=== PATIENT | female | born 1950 | race Caucasian/White ===

== ENCOUNTER 2017-01-26 21:44 | Inpatient (IN) | payer MEDICARE, MEDICAID ==
[2017-01-26] MEDS ORDERED: DUONEB 0.5 MG/3 MG ONE (22:00)
[2017-01-26] MEDS ORDERED: DUONEB 0.5 MG/3 MG NEB ONE ×2 (22:16→22:37)
[2017-01-26] MEDS ORDERED: SOLU-Medrol 125 MG VIAL IVP ONE (22:30)
--- NOTE | 2017-01-26 22:30 | DR.GENAD ---
HPI - PCP Primary Care Physician: Dr Eubanks - Complaint/Symptoms Chief Complaint Doctors Comments: Patient with a history of COPD on 2L oxygen and nebs as needed. Chief Complaint:: PT C/O COUGH CONGESTION SOB STARTED LAST WEEK BUT CAME BACK LAST NIGHT - Source History Provided: Patient - Mode of Arrival Mode of Arrival: Wheelchair - Timing Onset of Chief Complaint: 01/20/17 PMH - PMH Past Medical History: Yes Past Medical History: Arthritis, Asthma, CHF, COPD, Diabetes, GERD, Gout, Hypertension Past Surgical History: Yes Surgical History: Angioplasty/Stents, , Cholecystectomy, Hysterectomy, Ortho Surgery Past Surgical History Comment: LOOP RECORDER IN LT BREAST WATCHMEN IN HEART - Family History History of Family Medical Conditions: Yes Family Medical History: Diabetes Mellitus, Cancer, [place], Hypertension - Social History Do you use any recreational Drugs:: No Lives With: Family Lives Where: Home - infectious screening In the last 2 months have you had wt loss of >10#?: NO Have you had fever, night sweats or hemotysis?: No Have you traveled outside the country in the last 6 months?: No Isolation: Standard ROS - Review of Systems Eyes: No Symptoms Reported ENTM: No Symptoms Reported Respiratoy: No Symptoms Reported Cardiovascular: No Symptoms Reported Gastrointestinal/Abdominal: No Symptoms Reported Genitourinary: No Symptoms Reported Neurological: No Symptoms Reported Musculoskeletal: No Symptoms Reported Integumentary: No Symptoms Reported Hematologic/Lymphatic: No Symptoms Reported Endocrine: No Symptoms Reported Psychiatric: No Symptoms Reported All Other Systems: Reviewed and Negative PE - Vital Signs Vitals: Temperature 99.6 F Pulse Rate [Right Brachial] 85 Pulse Rate 90 Respiratory Rate 21 Blood Pressure [Right Arm] 135/63 Blood Pressure [Left Arm] 169/64 Blood Pressure 116/60 O2 Sat by Pulse Oximetry 93 - General Limitations: No Limitations General Appearance: Alert, In No Apparent Distress - Head Head Exam: Normal Inspection, Atraumatic - Eyes Eye exam: Normal Appearance, PERRL, EOMI - ENT ENT Exam: Normal Exam External Ear Exam: Normal External Inspection TM/Canal Exam: Bilateral Normal Nose Exam: Normal Nose Exam Mouth Exam: Normal Inspection Throat Exam: Normal Inspection - Neck Neck Exam: Normal Inspection - Chest Chest Inspection: Normal Inspection - Respiratory Respiratory Exam: Normal Lung Sounds Bilat Respiratory Exam: Bilateral Clear to Auscultation - Cardiovascular Cardiovascular Exam: Regular Rate, Normal Rhythm - Abdominal Exam Abdominal Exam: Normal Inspection Abdominal Tenderness: negative: RUQ, RLQ, LUQ, LLQ, Epigastrium, Suprapubic, Diffuse, Mild, Moderate, Severe, Other - Extremities Extremities Exam: Normal Inspection - Back Back Exam: Normal Inspection, Full ROM - Neurologic Neurological Exam: Alert, Oriented X3, CN II-XII Intact - Psychiatric Psychiatric Exam: Normal Affect - Skin Skin Exam: Warm, Dry, Intact Course - Reevaluation 1st: Improved - Education/Counseling Educated On: Treatment, Prognosis, Needs for Follow Up ROR - Labs Reviewed Result Diagrams: 01/27/17 00:27 01/27/17 00: Laboratory: 01/26/17 22:18 Sputum - Expectorated Sputum - Final WBC 22.2 X10^3/uL (3.6-10.0) H 01/27/17 00: RBC 3.93 X10^6/uL (3.5-5.4) 01/27/17 00: Hgb 10.6 g/dL (12.0-16.0) L 01/27/17 00: Hct 31.9 % (36.0-47.0) L 01/27/17 00: MCV 81.1 fL (80.0-100.0) 01/27/17 00: MCH 27.1 pg (27.0-34.0) 01/27/17 00: MCHC 33.4 g/dL (33.0-35.0) 01/27/17 00: RDW 16.2 % (11.6-16.5) 01/27/17 00: Plt Count 168 X10^3/uL (150.0-450.0) 01/27/17 00:27 Plt Count Comment Adequate (ADEQUATE) 01/27/17 00: MPV 9.2 fL (7.4-11.0) 01/27/17 00: Neut % 85.1 % (42.0-75.0) H 01/27/17 00: Lymph % 8.0 % (21.0-51.0) L 01/27/17 00: [place] % 6.5 % (0.0-13.0) 01/27/17 00: Eos % 0.0 % (0.9-2.9) L 01/27/17 00:27 Baso % 0.4 % (0.2-1.0) 01/27/17 00: Neut # 18.9 x10^3/uL (2.2-4.8) H 01/27/17 00: Lymph # 1.8 X10^3/uL (1.3-2.9) 01/27/17 00: [place] # 1.4 x10^3/uL (0.3-0.8) H 01/27/17 00: Eos # 0.0 x10^3/uL (0.0-0.2) 01/27/17 00: Baso # 0.1 X10^3/uL (0.0-0.1) 01/27/17 00: Absolute Nucleated RBC 0.0 /100WBC 01/27/17 00: Total Counted 100 01/27/17 00: Neutrophils % (Manual) 83 % (39-76) H 01/27/17 00: Band Neutrophils % 3 % (0-10) 01/27/17 00: Lymphocytes % (Manual) 9 % (13-43) L 01/27/17 00: Monocytes % (Manual) 5 % (4-9) 01/27/17 00: Plt Morphology Comment Normal (NORMAL) 01/27/17 00: RBC Morphology Normal (NORMAL) 01/27/17 00: Sodium 135 mmol/L (136-145) L 01/27/17 00: Corrected Sodium 138 mmol/L (136-145) 01/27/17 00: Potassium 3.5 mmol/L (3.5-5.1) 01/27/17 00: Chloride 98 mmol/L (98-107) 01/27/17 00: Carbon Dioxide 29.9 mmol/L (21-32) 01/27/17 00: BUN 21 mg/dL (7-18) H 01/27/17 00: Creatinine 1.52 mg/dL (0.55-1.02) H 01/27/17 00: Est GFR (MDRD) Af Amer 44 (>60) L 01/27/17 00: Est GFR (MDRD) Non-Af 36 (>60) L 01/27/17 00: Glucose 218 mg/dL (65-99) H 01/27/17 00:27 Calcium 8.8 mg/dL (8.5-10.1) 01/27/17 00: Corrected Calcium 9.7 mg/dL (8.5-10.1) 01/27/17: Total Bilirubin 0.80 mg/dL (0.2-1.0) 01/27/17: AST 18 Units/L (15-37) 01/27/17:27 ALT 19 Units/L (12-78) 01/27/17: Alkaline Phosphatase 106 Units/L (46-116) 01/27/17: Total Protein 6.8 g/dL (6.4-8.2) 01/27/17 00: Albumin 2.9 g/dL (3.4-5.0) L 01/27/17: Globulin 3.9 g/dL (2.5-4.5) 01/27/17 00: Albumin/Globulin Ratio 0.7 Ratio (1.1-2.1) L 01/27/17 00:27 - XRAY XRAY Interpreted by: Radiologist (Chest: Dense consolidation within the left uper lobe consistet with pneumonia. Stable increased prominence of the right pulmonary artery/hilum, this likely represents arterial dilatation; however, adenopathy or mass is not entirely excluded, attention on follow-up PA lat chest radiograph in 4-6 weeks is recommended to ensure resolution of GILLES airspace disease and further evaluation of the right hilum.) - Diagnosis Discharge Problem: Pneumonia Qualifiers: Pneumonia type: due to unspecified organism Laterality: left Lung location: upper lobe of lung Qualified Code(s): J18.1 - Lobar pneumonia, unspecified organism - Discharge Plan Condition: Stable - Follow ups/Referrals Follow ups/Referrals: NFD,None [Primary Care Provider] - 3 days - Instructions
[2017-01-26] MEDS ORDERED: DECADRON JET NEB (RESP USE) NEB ONE (22:37)
[2017-01-26] MEDS ORDERED: SOLU-Medrol 125 MG VIAL ONE (22:46)
[2017-01-26] MEDS: NS 1000 ML 1,000 ML IV SCH (23:00)
--- NOTE | 2017-01-27 00:04 | RAD ---
AP Chest Indication: Cough and congestion Comparison: 10/07/2015 Findings: The trachea is midline. The cardiac silhouette is unremarkable. Dense airspace consolidation within the left upper lobe most consistent with pneumonia. There is increased prominence of the right pulm onary artery/hilum. No pleural effusion or pneumothorax. No acute osseous abnormality. IMPRESSION: 1. Dense consolidation within the left upper lobe consistent with pneumonia. 2. Stable increased prominence of the right pulmonary artery/hilum, this likely represents arterial dilatation; however adenopathy or mass is not entirely excluded, attention on follow-up PA lateral ch est radiograph in 4-6 weeks is recommended to ensure resolution of left upper lobe airspace disease a nd further evaluation of the right hilum. Reported By:
[2017-01-27] MEDS ORDERED: ZITHROMAX INJ 500 MG VIAL 500 MG in NS 250 ML IV 250 ML IV SCH (00:17)
[2017-01-27 00:42] LABS: BASOPHILS # (AUTO) 0.1 X10^3/uL (0.0-0.1); BASOPHILS % (AUTO) 0.4 % (0.2-1.0); LYMPHOCYTES # (AUTO) 1.8 X10^3/uL (1.3-2.9); MONOCYTES # (AUTO) 1.4 x10^3/uL (0.3-0.8)
[2017-01-27 00:45] LABS: HEMATOCRIT 31.9 % (36.0-47.0); HEMOGLOBIN 10.6 g/dL (12.0-16.0); MEAN CORPUSCULAR HEMOGLOBIN 27.1 pg (27.0-34.0); MEAN CORPUSCULAR HGB CONC 33.4 g/dL (33.0-35.0); MEAN CORPUSCULAR VOLUME 81.1 fL (80.0-100.0); MEAN PLATELET VOLUME 9.2 fL (7.4-11.0); MONOCYTES % (AUTO) 6.5 % (0.0-13.0); NEUTROPHILS # (AUTO) 18.9 x10^3/uL (2.2-4.8); NEUTROPHILS % (AUTO) 85.1 % (42.0-75.0); PLATELET COUNT 168 X10^3/uL (150.0-450.0); RED BLOOD COUNT 3.93 X10^6/uL (3.5-5.4); RED CELL DISTRIBUTION WIDTH 16.2 % (11.6-16.5); WHITE BLOOD COUNT 22.2 X10^3/uL (3.6-10.0)
[2017-01-27 00:50] LABS: ALBUMIN 2.9 g/dL (3.4-5.0); CALCIUM 8.8 mg/dL (8.5-10.1); CARBON DIOXIDE 29.9 mmol/L (21-32); COR CA(FOR HYPOALB) 9.7 mg/dL (8.5-10.1); CREATININE 1.52 mg/dL (0.55-1.02); TOTAL PROTEIN 6.8 g/dL (6.4-8.2)
[2017-01-27 00:54] LABS: BAND NEUTROPHILS % 3 % (0-10); PLATELET MORPHOLOGY COMMENT NORMAL (NORMAL)
[2017-01-27] MEDS ORDERED: ZITHROMAX INJ 500 MG VIAL IV ONE (01:29)
[2017-01-27] MEDS ORDERED: NS 250 ML IV 250 ML IV ONE (01:30)
[2017-01-27] MEDS ORDERED: VIBRAMYCIN 100 MG in NS 100 ML IV + SPIKE MINIBAG* 100 ML IV SCH (03:00)
[2017-01-27] MEDS: NS 1/2 1000 ML IV 1,000 ML IV SCH ×3 (03:49→16:36)
[2017-01-27] MEDS ORDERED: NS 100 ML IV + SPIKE MINIBAG* 0 ML IV ONE (03:57)
[2017-01-27] MEDS: DUONEB 0.5 MG/3 MG NEB SCH ×5 (04:06→21:24)
[2017-01-27 05:09] LABS: BASOPHILS % (AUTO) 0.2 % (0.2-1.0); HEMATOCRIT 31.2 % (36.0-47.0); HEMOGLOBIN 10.3 g/dL (12.0-16.0); LYMPHOCYTES % (AUTO) 4.7 % (21.0-51.0); MEAN CORPUSCULAR HEMOGLOBIN 26.6 pg (27.0-34.0); MEAN CORPUSCULAR HGB CONC 32.8 g/dL (33.0-35.0); MEAN CORPUSCULAR VOLUME 81.1 fL (80.0-100.0); MEAN PLATELET VOLUME 9.6 fL (7.4-11.0); MONOCYTES # (AUTO) 0.6 x10^3/uL (0.3-0.8); MONOCYTES % (AUTO) 2.8 % (0.0-13.0); NEUTROPHILS % (AUTO) 92.3 % (42.0-75.0); PLATELET COUNT 167 X10^3/uL (150.0-450.0); RED BLOOD COUNT 3.85 X10^6/uL (3.5-5.4); RED CELL DISTRIBUTION WIDTH 16.2 % (11.6-16.5); WHITE BLOOD COUNT 20.6 X10^3/uL (3.6-10.0)
[2017-01-27 05:18] VITALS: BMI 39.9
[2017-01-27 05:21] LABS: ALBUMIN 2.7 g/dL (3.4-5.0); CALCIUM 8.9 mg/dL (8.5-10.1); CARBON DIOXIDE 25.4 mmol/L (21-32); COR CA(FOR HYPOALB) 9.9 mg/dL (8.5-10.1); CREATININE 1.65 mg/dL (0.55-1.02); TOTAL PROTEIN 6.8 g/dL (6.4-8.2)
[2017-01-27 05:34] LABS: BAND NEUTROPHILS % 2 % (0-10); PLATELET MORPHOLOGY COMMENT NORMAL (NORMAL)
[2017-01-27] MEDS: HumuLIN R SC PRN ×4 (05:42→17:31)
[2017-01-27] MEDS: NS 1000 ML 1,000 ML IV SCH (06:40)
[2017-01-27] MEDS ORDERED: LEXAPRO ONE (08:08)
[2017-01-27] MEDS ORDERED: NS 1/2 1000 ML IV 1,000 ML IV ONE (08:08)
[2017-01-27] MEDS: ASPIRIN 81 MG CHEWTAB PO SCH (08:15)
[2017-01-27] MEDS: SYNTHROID 100 mcg TAB PO SCH (08:15)
[2017-01-27] MEDS: LOTENSIN TAB 10 MG PO SCH (08:15)
[2017-01-27] MEDS: MAG-OX TAB PO SCH ×2 (08:15→20:42)
[2017-01-27] MEDS: LEXAPRO PO SCH (08:15)
[2017-01-27] MEDS ORDERED: DOFETILIDE 500 MG PO SCH (09:00)
[2017-01-27] MEDS ORDERED: ROCEPHIN VIAL 1 GM 1 GM in NS 50 ML IV + SPIKE MINIBAG* 50 ML IV SCH (09:00)
[2017-01-27] MEDS ORDERED: PATIENT'S HOME MEDICATION (Escitalopram Oxalate [Escitalopram Oxalate] 20 MG) PO SCH (09:00)
[2017-01-27] MEDS: PATIENT'S HOME MEDICATION PO SCH ×2 (11:52→21:46)
[2017-01-27] MEDS ORDERED: ZOSYN VIAL 4.5 GM IV SCH (15:00)
--- NOTE | 2017-01-27 15:59 | RAD ---
HISTORY: Pneumonia Study: Two-view chest Comparison: 01/26/2017 Findings: The trachea is midline. The cardiac silhouette is unremarkable. Focal airspace opacification of the left upper lobe is observed consistent with lobar pneumonia. The bony thorax is unremarkable. IMPRESSION: 1. Left upper lobe pneumonia. Reported By:
[2017-01-27] MEDS ORDERED: NS 50 ML IV 50 ML IV ONE (20:11)
[2017-01-27] MEDS: SNACK - Diabetic Appropriate PO SCH (20:43)
[2017-01-27] MEDS: ZOSYN VIAL 3.375 GM IV SCH (21:04)
[2017-01-27] MEDS: LANTUS SC SCH (21:04)
[2017-01-28] MEDS: DUONEB 0.5 MG/3 MG NEB SCH ×6 (01:11→20:31)
[2017-01-28] MEDS ORDERED: NS 1000 ML 1,000 ML ONE ×2 (01:24→22:06)
[2017-01-28 04:36] LABS: BASOPHILS % (AUTO) 0.2 % (0.2-1.0); HEMATOCRIT 29.2 % (36.0-47.0); HEMOGLOBIN 9.6 g/dL (12.0-16.0); LYMPHOCYTES # (AUTO) 2.1 X10^3/uL (1.3-2.9); MEAN CORPUSCULAR HEMOGLOBIN 26.7 pg (27.0-34.0); MEAN CORPUSCULAR HGB CONC 32.9 g/dL (33.0-35.0); MEAN CORPUSCULAR VOLUME 81.1 fL (80.0-100.0); MEAN PLATELET VOLUME 9.2 fL (7.4-11.0); MONOCYTES # (AUTO) 1.4 x10^3/uL (0.3-0.8); MONOCYTES % (AUTO) 6.8 % (0.0-13.0); PLATELET COUNT 169 X10^3/uL (150.0-450.0); RED CELL DISTRIBUTION WIDTH 16.4 % (11.6-16.5); WHITE BLOOD COUNT 20.5 X10^3/uL (3.6-10.0)
[2017-01-28 04:50] LABS: ALBUMIN 2.7 g/dL (3.4-5.0); CALCIUM 9.4 mg/dL (8.5-10.1); CARBON DIOXIDE 28.7 mmol/L (21-32); COR CA(FOR HYPOALB) 10.4 mg/dL (8.5-10.1); CREATININE 1.47 mg/dL (0.55-1.02); TOTAL PROTEIN 6.7 g/dL (6.4-8.2)
[2017-01-28] MEDS ORDERED: NS 50 ML IV 50 ML IV ONE ×2 (04:59→21:44)
[2017-01-28] MEDS: ZOSYN VIAL 3.375 GM IV SCH ×2 (05:24→14:00)
[2017-01-28] MEDS: HumuLIN R SC PRN ×3 (05:48→16:45)
--- NOTE | 2017-01-28 06:03 | RAD ---
HISTORY: Follow-up pneumonia Study: Chest AP portable Comparison: 01/27/2017 Findings: The heart is enlarged. No congestive heart failure is noted. The lungs are well inflated. The right l stuart and left lower lobe appear clear. Infiltrate is again noted in the left upper lobe most consisten t with pneumonia. Follow-up until complete resolution is recommended in order to exclude underlying n eoplasm. The bony thorax is unremarkable. IMPRESSION: No change left upper lobe infiltrate. Follow-up until complete resolution is recommended in order to exclude underlying neoplasm Cardiomegaly without congestive heart failure Reported By:
[2017-01-28] MEDS ORDERED: LEXAPRO ONE (08:28)
[2017-01-28] MEDS ORDERED: NS 1/2 1000 ML IV 1,000 ML IV ONE (08:28)
[2017-01-28] MEDS: NS 1/2 1000 ML IV 1,000 ML IV SCH (09:01)
[2017-01-28] MEDS: LEXAPRO PO SCH (09:01)
[2017-01-28] MEDS: PATIENT'S HOME MEDICATION PO SCH (09:02)
[2017-01-28] MEDS: LOTENSIN TAB 10 MG PO SCH (09:02)
[2017-01-28] MEDS: MAG-OX TAB PO SCH (09:02)
[2017-01-28] MEDS: ASPIRIN 81 MG CHEWTAB PO SCH (09:02)
[2017-01-28] MEDS: SYNTHROID 100 mcg TAB PO SCH (09:02)
--- NOTE | 2017-01-28 12:22 | DR.H&P ---
H&P - History & Physical for Day of: H&P Date: 01/27/17 - Chief Complaint Chief Complaint: COUGH, SHORT OF BREATH - Allergies Allergies/Adverse Reactions: Allergies Allergy/AdvReac Type Severity Reaction Status Date / Time levofloxacin [From Levaquin] Allergy Verified 01/26/17 21:49 - History of Present Illness History of Present Illness: IS A 66 YEAR OLD WHITE FEMALE WHO PRESENTED TO THE EMERGENCY ROOM WITH COMPLAINTS OF COUGH, CONGESTION, AND SHORTNESS OF BREATH. PATIENT REPORTS SYMPTOMS FOR ONE WEEK. SHE HAS A HISTORY OF COPD AND UTILIZES OXYGEN AT HOME WELL NEB TX. LUNG SOUNDS ARE DIMINISHED THROUGHOUT. ON ARRIVAL TO ED, VITAL SIGNS WERE 99.6-95-24-92%-116/ 60. LABS AND CHEST XRAY WERE OBTAINED. ABNORMAL LAB VALUES INCLUDE THE FOLLOWING : WBC 22.2, HGB 10.6, HCT 31.9, SODIUM 135, BUN 21, CREATININE 1.52, GLUCOSE 218 , ALBUMIN 2.9. BLOOD CULTURES AND SPUTUM CULTURES COLLECTED AND SENT TO LAB. RESULTS ARE PENDING. CHEST XRAY REPORTED DENSE CONSOLIDATION WITHIN THE LEFT UPPER LOBE CONSISTEND WITH PNEUMONIA. STABLE INCREASED PROMINENCE OF THE RIGHT PULMONARY ARTERY/HILUM, LIKELY REPRESENTING ARTERIAL DILATION. ADENOPATHY OR MASS IS NOT ENTIRELY EXCLUDED. EKG REPORTED SINUS RHYTHM WITH HR 89. PATIENT WAS ADMITTED FOR FURTHER TREATMENT AND EVALUATION OF GILLES PNEUMONIA. SHE WAS STARTED ON IV ANTIBIOTICS, DUONEBS, AND TUSSIONEX PRN FOR COUGH. WE PLAN TO FOLLOW UP WITH AM LABS AND CONTINUE TO MONITOR PATIENT. - Past Medical History Past Medical History: Arthritis, Asthma, CHF, COPD, Diabetes, GERD, Gout, Hypertension - Past Surgical History Surgical History: Angioplasty/Stents, , Cholecystectomy, Hysterectomy, Ortho Surgery, Other - Family History Family Medical History: Diabetes Mellitus, Cancer, [place], Hypertension - Social History Does any household member use tobacco: No Alcohol Use: None Drug Use: None - Medications Home Medications: Aspirin [ASPIRIN 81 MG CHEWTAB *] 81 mg PO DAILY 01/26/17 [History Confirmed ] Benazepril HCl [Benazepril HCl] 10 mg PO DAILY 01/26/17 [History Confirmed 01/27] Dofetilide [Dofetilide] 250 mcg PO BID 01/26/17 [History Confirmed 01/27/17] Escitalopram Oxalate [Escitalopram Oxalate] 20 mg PO DAILY 01/26/17 [History Confirmed 01/27/17] Febuxostat [Uloric] 40 mg PO DAILY 01/26/17 [History Confirmed 01/27/17] Levothyroxine Sodium 100 mcg PO DAILY 01/26/17 [History Confirmed 01/27/17] Lipase/Protease/Amylase [Creon Dr 24,000 Units Capsule] 20 mg PO BID 01/26/17 [ History Confirmed 01/27/17] Magnesium Oxide [MAG-OX TAB 400 MG *] 400 mg PO BID 01/26/17 [History Confirmed 01/27/17] - Review of Systems Constitutional: Weakness. denies: Fever Eyes: No Symptoms Reported ENT: Ear Discharge, Nose Congestion Respiratory: Cough, Shortness of Breath, SOB with Excertion Cardiovascular: No Symptoms Reported. denies: Chest Pain Gastrointestinal: No Symptoms Reported. denies: Nausea, Vomiting, Abdominal Pain Genitourinary: No Symptoms Reported Musculoskeletal: No Symptoms Reported Skin: No Symptoms Reported Neurological: Weakness - Physical Exam Vital Signs: Temperature 97.7 F Pulse Rate [Right Brachial] 87 Pulse Rate 71 Respiratory Rate 20 Blood Pressure [Right Arm] 132/63 Blood Pressure [Left Arm] 122/60 Blood Pressure 116/60 O2 Sat by Pulse Oximetry 95 Oriented: Normal Eyes: Normal. negative: Blurred Vision, Diplopia Ear: Normal Nose: Normal Throat: Normal. negative: Tonsillar Hypertrophy Respiratory: Diminished Throughout Cardiovascular: Normal : Normal. negative: Dysuria, Hematuria, Frequency Auscultation: Bowel Sounds: Normal Palpation: Normal Tenderness: Normal. negative: Rebound, Guarding, Rigidity Skin: Normal Musculoskeletal: Normal Psychiatric: Normal Mood Description: Calm Affect: Normal Speech Pattern: Clear - Assessment/Plan (1) Pneumonia Qualifiers: Pneumonia type: due to unspecified organism Laterality: left Lung location: upper lobe of lung Qualified Code(s): J18.1 - Lobar pneumonia, unspecified organism Status: Acute Plan: IV ANTIBIOTICS, SUPPLEMENTAL OXYGEN, DUONEBS, ADMINISTER COUGH MEDICATIONS , SPUTUM CULTURE, MONITOR LABS AND CHEST XRAY
[2017-01-28] MEDS ORDERED: NS 100 ML IV + SPIKE MINIBAG* 100 ML IV ONE (13:35)
[2017-01-28] MEDS: TUSSIONEX PENNKINETIC SUSP PO PRN (19:19)
[2017-01-28] MEDS ORDERED: STERILE WATER IRRIGATION IR ONE (20:37)
[2017-01-29] MEDS: SNACK - Diabetic Appropriate PO SCH ×2 (00:09→22:38)
[2017-01-29] MEDS: LANTUS SC SCH ×2 (00:10→21:27)
[2017-01-29] MEDS: MAG-OX TAB PO SCH ×3 (00:11→21:14)
[2017-01-29] MEDS: PATIENT'S HOME MEDICATION PO SCH ×3 (00:11→21:17)
[2017-01-29] MEDS: NS 1/2 1000 ML IV 1,000 ML IV SCH ×2 (00:11→11:22)
[2017-01-29] MEDS: ZOSYN VIAL 3.375 GM IV SCH ×4 (00:11→22:10)
[2017-01-29] MEDS: DUONEB 0.5 MG/3 MG NEB SCH ×6 (00:59→20:36)
[2017-01-29] MEDS ORDERED: ROBITUSSIN (PLAIN) ONE (02:03)
[2017-01-29] MEDS: ROBITUSSIN DM PO PRN ×2 (02:07→11:31)
[2017-01-29] MEDS ORDERED: NS 100 ML IV 100 ML IV ONE (05:11)
--- NOTE | 2017-01-29 06:14 | CT ---
HISTORY: Shortness of breath, cough. Prior history of COPD, hypertension, CHF and squamous cell carc inoma. Study: Noncontrast CT scan of the chest Comparison: Chest x-ray done 01/28/2017. No prior chest CTs available for comparison. Technique: Non contrasted CT images of the chest are reviewed in axial, coronal and sagittal planes. Dose reduction techniques utilized automatic exposure control. Findings: Dense opacity is present involving the apical posterior segment of the left upper lobe with extension into the region of the left hilum. There is a left hilar mass effect. There is narrowing of bronchia l structures serving the apical posterior segment of the left upper lobe. Satellite nodules are prese nt, largest of which is seen in the left upper lobe measuring about 8 mm in diameter. Noncalcified no dules are also seen in the right lung involving the apical posterior segment in the right lower lobe. The largest nodule on the right is in the right lower lobe measuring about 1.6 cm in diameter. There is evidence of central mediastinal and aortico-pulmonary window adenopathy. Right hilar adenopathy i s suspected also. A suture is present from exclusion surgery of the left atrial appendage. No evidenc e of pericardial or pleural effusion is seen. Liver and adrenal glands are unremarkable. The gallblad concha is surgically absent. All of the entire spleen is not imaged, the spleen appears enlarged. IMPRESSION: Left upper lobe density with extension into the region of the left hilum. There is a left hilar mass effect with peripheral atelectasis and satellite nodules. Right-sided hilar adenopathy is present as well as central mediastinal adenopathy and aortopulmonary adenopathy. Noncalcified nodules are presen t involving the right lung also. Findings are oval prominently in favor of a neoplastic process. Tiss ue diagnosis will be needed. Splenomegaly. Reported By:
[2017-01-29 06:55] LABS: BASOPHILS % (AUTO) 0.3 % (0.2-1.0); EOSINOPHILS # (AUTO) 0.1 x10^3/uL (0.0-0.2); EOSINOPHILS % (AUTO) 0.9 % (0.9-2.9); HEMATOCRIT 29.4 % (36.0-47.0); HEMOGLOBIN 9.7 g/dL (12.0-16.0); LYMPHOCYTES # (AUTO) 2.6 X10^3/uL (1.3-2.9); LYMPHOCYTES % (AUTO) 17.7 % (21.0-51.0); MEAN CORPUSCULAR HEMOGLOBIN 26.7 pg (27.0-34.0); MEAN CORPUSCULAR HGB CONC 32.9 g/dL (33.0-35.0); MEAN PLATELET VOLUME 9.4 fL (7.4-11.0); MONOCYTES % (AUTO) 6.7 % (0.0-13.0); NEUTROPHILS # (AUTO) 10.9 x10^3/uL (2.2-4.8); NEUTROPHILS % (AUTO) 74.4 % (42.0-75.0); PLATELET COUNT 174 X10^3/uL (150.0-450.0); RED BLOOD COUNT 3.63 X10^6/uL (3.5-5.4); RED CELL DISTRIBUTION WIDTH 16.2 % (11.6-16.5); WHITE BLOOD COUNT 14.7 X10^3/uL (3.6-10.0)
[2017-01-29 07:04] LABS: ALANINE AMINOTRANSFERASE 18 Units/L (12-78); ALBUMIN 2.6 g/dL (3.4-5.0); ALKALINE PHOSPHATASE 102 Units/L (46-116); ASPARTATE AMINO TRANSFERASE 13 Units/L (15-37); BLOOD UREA NITROGEN 21 mg/dL (7-18); CARBON DIOXIDE 29.3 mmol/L (21-32); CHLORIDE 105 mmol/L (98-107); COR CA(FOR HYPOALB) 10.1 mg/dL (8.5-10.1); COR NA(FOR HYPERGLY) 140 mmol/L (136-145); CREATININE 1.06 mg/dL (0.55-1.02); SODIUM 140 mmol/L (136-145); TOTAL PROTEIN 6.9 g/dL (6.4-8.2); eGFR BLACK RACES > 60 (>60); eGFR NON BLACK RACES 55 (>60)
--- NOTE | 2017-01-29 08:35 | RAD ---
Chest, one-view Indication: Shortness of breath, cough Comparison: 01/28/2017 Findings: There is stable mild cardiomegaly without congestive failure. Left upper lobe consolidation is essentially unchanged since yesterday's exam. Patchy opacities with right mid lung also appear si milar. No new focal infiltrate, significant effusion or pneumothorax is identified. Osseous thorax is unremarkable. Impression: Stable left upper lobe infiltrate and patchy right-sided airspace disease. A neoplastic process is fa vored on the prior CT examination and further evaluation with tissue biopsy is again recommended. Reported By:
[2017-01-29] MEDS ORDERED: LEXAPRO ONE (09:23)
[2017-01-29] MEDS: LEXAPRO PO SCH (09:29)
[2017-01-29] MEDS: SYNTHROID 100 mcg TAB PO SCH (09:29)
[2017-01-29] MEDS: ASPIRIN 81 MG CHEWTAB PO SCH (09:29)
[2017-01-29] MEDS: LOTENSIN TAB 10 MG PO SCH (09:29)
[2017-01-29] MEDS: HumuLIN R SC PRN ×3 (11:38→22:38)
[2017-01-29] MEDS: SOLU-Medrol 40 MG VIAL IVP SCH ×3 (11:38→21:26)
[2017-01-29] MEDS: TESSALON PERLES PO PRN (11:39)
[2017-01-29] MEDS ORDERED: ATIVAN TAB 0.5 MG PO PRN (12:07)
[2017-01-29] MEDS ORDERED: Atrovent NEB TX 0.02% NEB PRN (12:07)
[2017-01-29] MEDS ORDERED: PATIENT'S HOME MEDICATION (Potassium Chloride [Klor-Con 10 (10 Meq)] 10 MEQ) PO PRN (12:07)
[2017-01-29] MEDS ORDERED: [UNRECOGNIZED DRUG - OTHER] PO SCH (12:15)
[2017-01-29] MEDS ORDERED: AMYLASE PO SCH (12:15)
[2017-01-29] MEDS ORDERED: LIPASE PO SCH (12:15)
[2017-01-29] MEDS ORDERED: PROTEASE PO SCH (12:15)
[2017-01-29] MEDS ORDERED: MICRO K EXTEN CAP 10 MEQ PO PRN (12:54)
[2017-01-29] MEDS ORDERED: NS 100 ML IV + SPIKE MINIBAG* 100 ML IV ONE (13:08)
[2017-01-29] MEDS: PriLOSEC PO SCH (13:21)
[2017-01-29] MEDS: LASIX PO SCH ×2 (13:21→21:14)
[2017-01-29] MEDS: ZOCOR TAB 20 MG PO SCH (13:21)
[2017-01-29] MEDS: ULORIC PO SCH (13:27)
[2017-01-29] MEDS ORDERED: GLUCOPHAGE ONE (16:39)
[2017-01-29] MEDS: GLUCOPHAGE PO SCH (16:58)
[2017-01-29] MEDS ORDERED: PRAMIPEXOLE DIHYDROCHLORIDE 0.25 MG PO SCH (21:00)
[2017-01-29] MEDS ORDERED: PATIENT'S HOME MEDICATION (Metformin Hcl [Metformin Hcl] 1,000 MG) PO SCH (21:00)
[2017-01-29] MEDS: CREON PO SCH (21:14)
[2017-01-29] MEDS: MIRAPEX TAB 0.25 MG PO SCH (21:14)
[2017-01-30] MEDS: DUONEB 0.5 MG/3 MG NEB SCH ×6 (00:57→21:27)
[2017-01-30] MEDS: TESSALON PERLES PO PRN ×2 (03:12→15:48)
[2017-01-30] MEDS: NS 1/2 1000 ML IV 1,000 ML IV SCH ×3 (04:58→15:43)
[2017-01-30] MEDS ORDERED: GLUCOPHAGE ONE ×2 (05:17→17:04)
[2017-01-30] MEDS ORDERED: NS 100 ML IV 100 ML IV ONE (05:18)
[2017-01-30 05:35] LABS: BASOPHILS % (AUTO) 0.1 % (0.2-1.0); HEMOGLOBIN 9.1 g/dL (12.0-16.0); LYMPHOCYTES % (AUTO) 10.4 % (21.0-51.0); MEAN CORPUSCULAR HEMOGLOBIN 27.5 pg (27.0-34.0); MEAN CORPUSCULAR HGB CONC 33.8 g/dL (33.0-35.0); MEAN CORPUSCULAR VOLUME 81.4 fL (80.0-100.0); MEAN PLATELET VOLUME 9.5 fL (7.4-11.0); MONOCYTES # (AUTO) 0.4 x10^3/uL (0.3-0.8); MONOCYTES % (AUTO) 3.6 % (0.0-13.0); NEUTROPHILS # (AUTO) 8.5 x10^3/uL (2.2-4.8); NEUTROPHILS % (AUTO) 85.9 % (42.0-75.0); PLATELET COUNT 162 X10^3/uL (150.0-450.0); RED BLOOD COUNT 3.32 X10^6/uL (3.5-5.4); RED CELL DISTRIBUTION WIDTH 16.3 % (11.6-16.5); WHITE BLOOD COUNT 9.9 X10^3/uL (3.6-10.0)
[2017-01-30] MEDS: SOLU-Medrol 40 MG VIAL IVP SCH ×3 (05:39→21:43)
[2017-01-30 05:43] LABS: ALBUMIN 2.4 g/dL (3.4-5.0); CALCIUM 9.2 mg/dL (8.5-10.1); CARBON DIOXIDE 30.4 mmol/L (21-32); COR CA(FOR HYPOALB) 10.5 mg/dL (8.5-10.1); CREATININE 1.22 mg/dL (0.55-1.02); TOTAL PROTEIN 6.6 g/dL (6.4-8.2)
[2017-01-30] MEDS: ZOSYN VIAL 3.375 GM IV SCH ×3 (05:44→21:43)
[2017-01-30] MEDS: SNACK - Diabetic Appropriate PO SCH (06:20)
--- NOTE | 2017-01-30 06:46 | RAD ---
HISTORY: Follow-up pneumonia Study: Chest AP portable Comparison: 01/29/2017, CT chest 01/28/2017 Findings: The heart is enlarged. No congestive heart failure is noted. The right lung and left lower lung field s are clear. There is segmental consolidation in the left upper lobe not significantly changed in katina earance from the prior examination. The should be followed until complete resolution in order to excl ude underlying neoplasm. This was well demonstrated on the recent CT along with some hilar adenopathy . The ventrally, bronchoscopy and tissue diagnosis may be required in order to exclude underlying farshad plasm. IMPRESSION: No change segmental consolidation left upper lobe which should be followed until complete resolution in order to exclude underlying neoplasm. If this does not resolve then bronchoscopy may be required. Cardiomegaly without congestive heart failure Reported By:
[2017-01-30] MEDS ORDERED: LEXAPRO ONE (08:26)
[2017-01-30] MEDS: MAG-OX TAB PO SCH ×2 (08:41→21:43)
[2017-01-30] MEDS: PriLOSEC PO SCH (08:41)
[2017-01-30] MEDS: ZOCOR TAB 20 MG PO SCH (08:41)
[2017-01-30] MEDS: ASPIRIN 81 MG CHEWTAB PO SCH (08:41)
[2017-01-30] MEDS: LOTENSIN TAB 10 MG PO SCH (08:41)
[2017-01-30] MEDS: LASIX PO SCH ×2 (08:41→21:43)
[2017-01-30] MEDS: CREON PO SCH ×2 (08:41→21:43)
[2017-01-30] MEDS: LEXAPRO PO SCH (08:41)
[2017-01-30] MEDS: SYNTHROID 100 mcg TAB PO SCH (08:41)
[2017-01-30] MEDS ORDERED: NS 1/2 1000 ML IV 1,000 ML IV ONE (08:41)
[2017-01-30] MEDS: ULORIC PO SCH (08:46)
[2017-01-30] MEDS: PATIENT'S HOME MEDICATION PO SCH ×2 (08:46→21:48)
--- NOTE | 2017-01-30 12:24 | PCM.PROG ---
Progress Note - Progress Note for Day of Date: 01/28/17 - Subjective Subjective: WAS ADMITTED FOR LEFT UPPER LOBE PNEUMONIA. TODAY, SHE IS ALERT AND ORIENTED, LYING IN BED ON MORNING ROUNDS. PATIENT'S IS AT BEDSIDE. SHE IS NOTED WITH COMPLAINTS OF PRODUCTIVE COUGH AND SHORTNESS OF BREATH. PATIENT REPORTS COUGHING UP BLOOD TINGED SPUTUM LAST NIGHT. ON EXAMINATION, LUNGS ARE NOTED WITH RHONCHI TO BILATERAL LUNGS. ABDOMEN IS SOFT, ROUND, AND NON-TENDER WITH NORMAL BOWEL SOUNDS. SHE IS UTILIZING OXYGEN VIA NASAL CANNULA AT 2L/MIN AT THIS TIME. HER VITALS SIGNS THIS MORNING ARE 97.9-80- 20-94%-122/60. ABNORMAL LAB VALUES TODAY INCLUDE THE FOLLOWING: WBC 20.5, HGB 9.6, HCT 29.2, BUN 31, CREATININE 1.47, GFR 38, GLUCOSE 232, AST 13, ALBUMIN 2.7. SPUTUM CULTURES ARE PENDING. PRELIMINARY BLOOD CULTURES REPORT NO GROWTH. A CHEST XRAY WAS OBTAINED AND REPORTED NO CHANGE TO THE LEFT UPPER LOBE INFILTRATE AND CARDIOMEGALY WITHOUT CHF. TODAY, WE WILL OBTAIN A CT OF THE CHEST WITHOUT CONTRAST. OTHERWISE, WE WILL CONTINUE WITH CURRENT PLAN OF CARE AND CONTINUE TO MONITOR PATIENT. - Past Medical Family Social History Past Med/Fam/Surg Hx: No changes since H&P Allergies: Allergies levofloxacin [From Levaquin] Allergy (Verified 01/26/17 21:49) - Review of Systems ROS: No change since H&P - Vital Signs and I&O's Vital Signs: Temperature 98.1 F Pulse Rate [Left Brachial] 66 Pulse Rate [Right Brachial] 84 Pulse Rate 60 Respiratory Rate 19 Blood Pressure [Right Arm] 151/71 Blood Pressure [Left Arm] 178/77 Blood Pressure 116/60 O2 Sat by Pulse Oximetry 95 Intake and Output: Intake & Output 01/28/17 01/29/17 01/30/17 01/31/17 11:59 11:59 11:59 11:59 Intake Total 3340 1780 2260 Output Total 1600 1680 3000 Balance 1740 100 -740 - Physical Exam Oriented: Normal Eyes: Normal. negative: Blurred Vision, Diplopia Ear: Normal Nose: Normal Throat: Normal. negative: Tonsillar Hypertrophy Respiratory: Right, Left, Rhonchi Cardiovascular: Normal : Normal. negative: Dysuria, Hematuria, Frequency Auscultation: Bowel Sounds: Normal Palpation: Normal Tenderness: Normal. negative: Rebound, Guarding, Rigidity Skin: Normal Musculoskeletal: Normal Psychiatric: Normal Mood Description: Calm Affect: Normal Speech Pattern: Clear, Appropriate - Laboratory and Diagnostics Result Diagrams: 01/30/17 04:50 01/30/17 04:50 Labs: 01/26/17 22:18 Sputum - Expectorated Sputum Sputum Culture - Final Klebsiella Pneumoniae Streptococcus Pneumoniae 01/26/17 22:18 Sputum - Expectorated Sputum - Final 01/27/17 01:27 Blood Blood Culture - Preliminary 01/27/17 01:20 Blood Blood Culture - Preliminary 01/27/17 11:25 Sputum - Expectorated Sputum Sputum Culture - Final Klebsiella Pneumoniae 01/27/17 11:25 Sputum - Expectorated Sputum - Final Laboratory WBC 9.9 X10^3/uL (3.6-10.0) 01/30/17 04:50 RBC 3.32 X10^6/uL (3.5-5.4) L 01/30/17 04:50 Hgb 9.1 g/dL (12.0-16.0) L 01/30/17 04:50 Hct 27.0 % (36.0-47.0) L 01/30/17 04:50 MCV 81.4 fL (80.0-100.0) 01/30/17 04:50 MCH 27.5 pg (27.0-34.0) 01/30/17 04:50 MCHC 33.8 g/dL (33.0-35.0) 01/30/17 04:50 RDW 16.3 % (11.6-16.5) 01/30/17 04:50 Plt Count 162 X10^3/uL (150.0-450.0) 01/30/17 04:50 Plt Count Comment Adequate (ADEQUATE) 01/27/17 04:13 MPV 9.5 fL (7.4-11.0) 01/30/17 04:50 Neut % 85.9 % (42.0-75.0) H 01/30/17 04:50 Lymph % 10.4 % (21.0-51.0) L 01/30/17 04:50 [place] % 3.6 % (0.0-13.0) 01/30/17 04:50 Eos % 0.0 % (0.9-2.9) L 01/30/17 04:50 Baso % 0.1 % (0.2-1.0) L 01/30/17 04:50 Neut # 8.5 x10^3/uL (2.2-4.8) H 01/30/17 04:50 Lymph # 1.0 X10^3/uL (1.3-2.9) L 01/30/17 04:50 [place] # 0.4 x10^3/uL (0.3-0.8) 01/30/17 04:50 Eos # 0.0 x10^3/uL (0.0-0.2) 01/30/17 04:50 Baso # 0.0 X10^3/uL (0.0-0.1) 01/30/17 04:50 Absolute Nucleated RBC 0.0 /100WBC 01/30/17 04:50 Total Counted 100 01/27/17 04:13 Neutrophils % (Manual) 94 % (39-76) H 01/27/17 04:13 Band Neutrophils % 2 % (0-10) 01/27/17 04:13 Lymphocytes % (Manual) 4 % (13-43) L 01/27/17 04:13 Monocytes % (Manual) 5 % (4-9) 01/27/17 00:27 Plt Morphology Comment Normal (NORMAL) 01/27/17 04:13 RBC Morphology Normal (NORMAL) 01/27/17 04:13 Sodium 137 mmol/L (136-145) 01/30/17 04:50 Corrected Sodium 141 mmol/L (136-145) 01/30/17 04:50 Potassium 4.4 mmol/L (3.5-5.1) 01/30/17 04:50 Chloride 103 mmol/L (98-107) 01/30/17 04:50 Carbon Dioxide 30.4 mmol/L (21-32) 01/30/17 04:50 BUN 23 mg/dL (7-18) H 01/30/17 04:50 Creatinine 1.22 mg/dL (0.55-1.02) H 01/30/17 04:50 Est GFR (MDRD) Af Amer 57 (>60) L 01/30/17 04:50 Est GFR (MDRD) Non-Af 47 (>60) L 01/30/17 04:50 Glucose 279 mg/dL (65-99) H 01/30/17 04:50 POC Glucose (mg/dL) 265 mg/dL (65-99) H 01/30/17 11:58 Calcium 9.2 mg/dL (8.5-10.1) 01/30/17 04:50 Corrected Calcium 10.5 mg/dL (8.5-10.1) H 01/30/17 04:50 Total Bilirubin 0.40 mg/dL (0.2-1.0) 01/30/17 04:50 AST 20 Units/L (15-37) 01/30/17 04:50 ALT 29 Units/L (12-78) 01/30/17 04:50 Alkaline Phosphatase 103 Units/L (46-116) 01/30/17 04:50 Total Protein 6.6 g/dL (6.4-8.2) 01/30/17 04:50 Albumin 2.4 g/dL (3.4-5.0) L 01/30/17 04:50 Globulin 4.2 g/dL (2.5-4.5) 01/30/17 04:50 Albumin/Globulin Ratio 0.6 Ratio (1.1-2.1) L 01/30/17 04:50 - Plan (1) Pneumonia Status: Acute Qualifiers: Pneumonia type: due to unspecified organism Laterality: left Lung location: upper lobe of lung Qualified Code(s): J18.1 - Lobar pneumonia, unspecified organism Plan: ZOSYN 3.375GM IV Q8H, OBTAIN CHEST CT, SUPPLEMENTAL OXYGEN, DUONEBS, ADMINISTER COUGH MEDICATIONS, SPUTUM CULTURE, MONITOR LABS AND CHEST XRAY (2) CHF (congestive heart failure) Status: Acute Qualifiers: Congestive heart failure type: unspecified congestive heart failure type Congestive heart failure chronicity: acute on chronic Qualified Code(s): I50.9 - Heart failure, unspecified Plan: LASIX 40MG PO BID, DUONEBS Q4H, MONITOR LABS AND CHEST XRAY (3) COPD (chronic obstructive pulmonary disease) Status: Chronic Qualifiers: COPD type: COPD with acute lower respiratory infection Qualified Code(s): J44.0 - Chronic obstructive pulmonary disease with acute lower respiratory infection Plan: ZOSYN 3.375GM IV Q8H, SOLU-MEDROL 60 MG IV Q8HR, DUONEBS Q4H, ATROVENT NEBS QID, CONTINUE TO MONITOR (4) Hypothyroidism Status: Chronic Qualifiers: Hypothyroidism type: acquired Qualified Code(s): E03.9 - Hypothyroidism, unspecified Plan: CONTINUE SYNTHROID, CONTINUE TO MONITOR (5) Hyperlipidemia Status: Chronic Qualifiers: Hyperlipidemia type: mixed hyperlipidemia Qualified Code(s): E78.2 - Mixed hyperlipidemia Plan: CONTINUE ZOCOR, CONTINUE TO MONITOR (6) Diabetes mellitus Status: Chronic Qualifiers: Diabetes mellitus type: type 2 Diabetes mellitus complication status: with unspecified complications Diabetes mellitus moth exterminator insulin use: with moth exterminator use Qualified Code(s): E11.8 - Type 2 diabetes mellitus with unspecified complications; Z79.4 - snf (current) use of insulin; Z79.4 - termite control servicer ( current) use of insulin; Z79.4 - termite control servicer (current) use of insulin; Z79.4 - termite control servicer (current) use of insulin Plan: CONTINUE LANTUS 33UNITS SC QPM, CONTINUE HUMULIN R SLIDING SCALE, CONTINUE GLUCOPHAGE, CONTINUE TO MONITOR OTBS (7) GERD (gastroesophageal reflux disease) Status: Chronic Qualifiers: Esophagitis presence: esophagitis presence not specified Qualified Code(s) : K21.9 - Gastro-esophageal reflux disease without esophagitis Plan: CONTINUE PRILOSEC, CONTINUE TO MONITOR (8) Gout Status: Chronic Qualifiers: Gout site: unspecified site Gout etiology: unspecified cause Chronicity: chronic Presence of tophus: without tophus Qualified Code(s): M1A.9XX0 - Chronic gout, unspecified, without tophus (tophi) Plan: CONTINUE ULORIC, CONTINUE TO MONITOR (9) Hypertension Status: Chronic Qualifiers: Hypertension type: essential hypertension Qualified Code(s): I10 - Essential (primary) hypertension Plan: CONTINUE LOTENSIN, CONTINUE TO MONITOR (10) Depression Status: Chronic Qualifiers: Depression Type: major depressive disorder Major depression recurrence: recurrent Active/Remission status: remission status unspecified Qualified Code(s): F33.9 - Major depressive disorder, recurrent, unspecified Plan: CONTINUE LEXAPRO, CONTINUE TO MONITOR
[2017-01-30] MEDS: HumuLIN R SC PRN ×3 (12:27→21:41)
[2017-01-30] MEDS ORDERED: NS 100 ML IV + SPIKE MINIBAG* 100 ML IV ONE ×2 (14:03→22:24)
[2017-01-30] MEDS: TUSSIONEX PENNKINETIC SUSP PO PRN (15:48)
[2017-01-30] MEDS: GLUCOPHAGE PO SCH (17:08)
--- NOTE | 2017-01-30 19:42 | PCM.PROG ---
Progress Note - Progress Note for Day of Date: 01/29/17 - Subjective Subjective: WAS ADMITTED FOR LEFT UPPER LOBE PNEUMONIA. TODAY, SHE IS ALERT AND ORIENTED, LYING IN BED ON MORNING ROUNDS. PATIENT'S IS AT BEDSIDE. SHE CONTINUES WITH COMPLAINTS OF PRODUCTIVE COUGH AND SHORTNESS OF BREATH DESPITE RECEIVING BREATHING TREATMENTS AND ANTIBIOTICS. ON EXAMINATION, LUNGS CONTINUE WITH RHONCHI TO BILATERAL LUNGS. ABDOMEN IS SOFT, ROUND, AND NON- TENDER WITH NORMAL BOWEL SOUNDS. SHE IS UTILIZING OXYGEN VIA NASAL CANNULA AT 2L /MIN AT THIS TIME. HER VITALS SIGNS THIS MORNING ARE 99.2-88-20-93%-122/58. ABNORMAL LAB VALUES TODAY INCLUDE THE FOLLOWING: WBC HAS DECREASED FROM 20.5 TO 14.7, HGB 9.7, HCT 29.4, BUN 29, CREATININE 1.22, GFR 47, GLUCOSE 279, ALBUMIN 2.4. SPUTUM CULTURES REPORT GROWTH OF KLEBSIELLA PNEUMONIA. IT IS SENSTIVE TO ZOSYN, WHICH SHE IS ALREADY ON. PRELIMINARY BLOOD CULTURES REPORT NO GROWTH. A CHEST CT WAS OBTAINED YESTERDAY AND REPORTED LEFT UPPER LOBE DENSITY WITH EXTENSION INTO THE REGION OF THE LEFT HILUM. THERE IS A LEFT HILAR MASS EFFECT WITH PERIPHERAL ATELECTASIS AND SATELLITE NODULES. RIGHT SIDED HILAR ADENOPATHY IS PRESENT WELL CENTRAL MEDIASTINAL ADENOPATHY AND AORTOPULMONARY ADENOPATHY. NONCALCIFIED NODULES ARE PRESENT INVOLVING THE RIGHT LUNG ALSO. FINDINGS ARE OVAL PROMINENTLY IN FAVOR OF A NEOPLASTIC PROCESS. TISSUE DIAGNOSIS WILL BE NEEDED. SPLEENOMEGALY. TODAY, WE WILL ADD SOLU-MEDROL 60MG IV Q8H. OTHERWISE, WE WILL CONTINUE WITH CURRENT PLAN OF CARE, FOLLOW UP WITH AM LABS AND CHEST XRAY, AND CONTINUE TO MONITOR PATIENT. - Past Medical Family Social History Past Med/Fam/Surg Hx: No changes since H&P Allergies: Allergies levofloxacin [From Levaquin] Allergy (Verified 01/26/17 21:49) - Review of Systems ROS: No change since H&P - Vital Signs and I&O's Vital Signs: Temperature 97.8 F Pulse Rate [Left Brachial] 64 Pulse Rate [Right Brachial] 84 Pulse Rate 60 Respiratory Rate 20 Blood Pressure [Right Arm] 151/71 Blood Pressure [Left Arm] 135/62 Blood Pressure 116/60 O2 Sat by Pulse Oximetry 96 Intake and Output: Intake & Output 01/28/17 01/29/17 01/30/17 01/31/17 11:59 11:59 11:59 11:59 Intake Total 3340 1780 2260 1046 Output Total 1600 1680 3000 1000 Balance 1740 100 -740 46 - Physical Exam Oriented: Normal Eyes: Normal. negative: Blurred Vision, Diplopia Ear: Normal Nose: Normal Throat: Normal. negative: Tonsillar Hypertrophy Respiratory: Right, Left, Rhonchi Cardiovascular: Normal : Normal. negative: Dysuria, Hematuria, Frequency Auscultation: Bowel Sounds: Normal Palpation: Normal Tenderness: Normal. negative: Rebound, Guarding, Rigidity Skin: Normal Musculoskeletal: Normal Psychiatric: Normal Mood Description: Calm Affect: Normal Speech Pattern: Clear, Appropriate - Laboratory and Diagnostics Result Diagrams: 01/30/17 04:50 01/30/17 04:50 Labs: 01/26/17 22:18 Sputum - Expectorated Sputum Sputum Culture - Final Klebsiella Pneumoniae Streptococcus Pneumoniae 01/26/17 22:18 Sputum - Expectorated Sputum - Final 01/27/17 01:27 Blood Blood Culture - Preliminary 01/27/17 01:20 Blood Blood Culture - Preliminary 01/27/17 11:25 Sputum - Expectorated Sputum Sputum Culture - Final Klebsiella Pneumoniae 01/27/17 11:25 Sputum - Expectorated Sputum - Final Laboratory WBC 9.9 X10^3/uL (3.6-10.0) 01/30/17 04:50 RBC 3.32 X10^6/uL (3.5-5.4) L 01/30/17 04:50 Hgb 9.1 g/dL (12.0-16.0) L 01/30/17 04:50 Hct 27.0 % (36.0-47.0) L 01/30/17 04:50 MCV 81.4 fL (80.0-100.0) 01/30/17 04:50 MCH 27.5 pg (27.0-34.0) 01/30/17 04:50 MCHC 33.8 g/dL (33.0-35.0) 01/30/17 04:50 RDW 16.3 % (11.6-16.5) 01/30/17 04:50 Plt Count 162 X10^3/uL (150.0-450.0) 01/30/17 04:50 Plt Count Comment Adequate (ADEQUATE) 01/27/17 04:13 MPV 9.5 fL (7.4-11.0) 01/30/17 04:50 Neut % 85.9 % (42.0-75.0) H 01/30/17 04:50 Lymph % 10.4 % (21.0-51.0) L 01/30/17 04:50 [place] % 3.6 % (0.0-13.0) 01/30/17 04:50 Eos % 0.0 % (0.9-2.9) L 01/30/17 04:50 Baso % 0.1 % (0.2-1.0) L 01/30/17 04:50 Neut # 8.5 x10^3/uL (2.2-4.8) H 01/30/17 04:50 Lymph # 1.0 X10^3/uL (1.3-2.9) L 01/30/17 04:50 [place] # 0.4 x10^3/uL (0.3-0.8) 01/30/17 04:50 Eos # 0.0 x10^3/uL (0.0-0.2) 01/30/17 04:50 Baso # 0.0 X10^3/uL (0.0-0.1) 01/30/17 04:50 Absolute Nucleated RBC 0.0 /100WBC 01/30/17 04:50 Total Counted 100 01/27/17 04:13 Neutrophils % (Manual) 94 % (39-76) H 01/27/17 04:13 Band Neutrophils % 2 % (0-10) 01/27/17 04:13 Lymphocytes % (Manual) 4 % (13-43) L 01/27/17 04:13 Monocytes % (Manual) 5 % (4-9) 01/27/17 00:27 Plt Morphology Comment Normal (NORMAL) 01/27/17 04:13 RBC Morphology Normal (NORMAL) 01/27/17 04:13 Sodium 137 mmol/L (136-145) 01/30/17 04:50 Corrected Sodium 141 mmol/L (136-145) 01/30/17 04:50 Potassium 4.4 mmol/L (3.5-5.1) 01/30/17 04:50 Chloride 103 mmol/L (98-107) 01/30/17 04:50 Carbon Dioxide 30.4 mmol/L (21-32) 01/30/17 04:50 BUN 23 mg/dL (7-18) H 01/30/17 04:50 Creatinine 1.22 mg/dL (0.55-1.02) H 01/30/17 04:50 Est GFR (MDRD) Af Amer 57 (>60) L 01/30/17 04:50 Est GFR (MDRD) Non-Af 47 (>60) L 01/30/17 04:50 Glucose 279 mg/dL (65-99) H 01/30/17 04:50 POC Glucose (mg/dL) 292 mg/dL (65-99) H 01/30/17 16:41 Calcium 9.2 mg/dL (8.5-10.1) 01/30/17 04:50 Corrected Calcium 10.5 mg/dL (8.5-10.1) H 01/30/17 04:50 Total Bilirubin 0.40 mg/dL (0.2-1.0) 01/30/17 04:50 AST 20 Units/L (15-37) 01/30/17 04:50 ALT 29 Units/L (12-78) 01/30/17 04:50 Alkaline Phosphatase 103 Units/L (46-116) 01/30/17 04:50 Total Protein 6.6 g/dL (6.4-8.2) 01/30/17 04:50 Albumin 2.4 g/dL (3.4-5.0) L 01/30/17 04:50 Globulin 4.2 g/dL (2.5-4.5) 01/30/17 04:50 Albumin/Globulin Ratio 0.6 Ratio (1.1-2.1) L 01/30/17 04:50 - Plan (1) Pneumonia Status: Acute Qualifiers: Pneumonia type: due to unspecified organism Laterality: left Lung location: upper lobe of lung Qualified Code(s): J18.1 - Lobar pneumonia, unspecified organism Plan: ZOSYN 3.375GM IV Q8H, OBTAIN CHEST CT, SUPPLEMENTAL OXYGEN, DUONEBS, ADMINISTER COUGH MEDICATIONS, SPUTUM CULTURE, MONITOR LABS AND CHEST XRAY (2) CHF (congestive heart failure) Status: Acute Qualifiers: Congestive heart failure type: unspecified congestive heart failure type Congestive heart failure chronicity: acute on chronic Qualified Code(s): I50.9 - Heart failure, unspecified Plan: LASIX 40MG PO BID, DUONEBS Q4H, MONITOR LABS AND CHEST XRAY (3) COPD (chronic obstructive pulmonary disease) Status: Chronic Qualifiers: COPD type: COPD with acute lower respiratory infection Qualified Code(s): J44.0 - Chronic obstructive pulmonary disease with acute lower respiratory infection Plan: ZOSYN 3.375GM IV Q8H, SOLU-MEDROL 60 MG IV Q8HR, DUONEBS Q4H, ATROVENT NEBS QID, CONTINUE TO MONITOR (4) Hypothyroidism Status: Chronic Qualifiers: Hypothyroidism type: acquired Qualified Code(s): E03.9 - Hypothyroidism, unspecified Plan: CONTINUE SYNTHROID, CONTINUE TO MONITOR (5) Hyperlipidemia Status: Chronic Qualifiers: Hyperlipidemia type: mixed hyperlipidemia Qualified Code(s): E78.2 - Mixed hyperlipidemia Plan: CONTINUE ZOCOR, CONTINUE TO MONITOR (6) Diabetes mellitus Status: Chronic Qualifiers: Diabetes mellitus type: type 2 Diabetes mellitus complication status: with unspecified complications Diabetes mellitus parts counterman insulin use: with senior care use Qualified Code(s): E11.8 - Type 2 diabetes mellitus with unspecified complications; Z79.4 - retirement (current) use of insulin; Z79.4 - long term care administrator ( current) use of insulin; Z79.4 - long term care administrator (current) use of insulin; Z79.4 - long term care administrator (current) use of insulin Plan: CONTINUE LANTUS 33UNITS SC QPM, CONTINUE HUMULIN R SLIDING SCALE, CONTINUE GLUCOPHAGE, CONTINUE TO MONITOR OTBS (7) GERD (gastroesophageal reflux disease) Status: Chronic Qualifiers: Esophagitis presence: esophagitis presence not specified Qualified Code(s) : K21.9 - Gastro-esophageal reflux disease without esophagitis Plan: CONTINUE PRILOSEC, CONTINUE TO MONITOR (8) Gout Status: Chronic Qualifiers: Gout site: unspecified site Gout etiology: unspecified cause Chronicity: chronic Presence of tophus: without tophus Qualified Code(s): M1A.9XX0 - Chronic gout, unspecified, without tophus (tophi) Plan: CONTINUE ULORIC, CONTINUE TO MONITOR (9) Hypertension Status: Chronic Qualifiers: Hypertension type: essential hypertension Qualified Code(s): I10 - Essential (primary) hypertension Plan: CONTINUE LOTENSIN, CONTINUE TO MONITOR (10) Depression Status: Chronic Qualifiers: Depression Type: major depressive disorder Major depression recurrence: recurrent Active/Remission status: remission status unspecified Qualified Code(s): F33.9 - Major depressive disorder, recurrent, unspecified Plan: CONTINUE LEXAPRO, CONTINUE TO MONITOR
[2017-01-30] MEDS: LANTUS SC SCH (21:42)
[2017-01-30] MEDS: MIRAPEX TAB 0.25 MG PO SCH (21:43)
[2017-01-31] MEDS: DUONEB 0.5 MG/3 MG NEB SCH ×6 (00:48→20:24)
[2017-01-31] MEDS ORDERED: NS 100 ML IV + SPIKE MINIBAG* 100 ML IV ONE ×3 (05:53→20:36)
[2017-01-31] MEDS ORDERED: GLUCOPHAGE ONE ×2 (05:57→16:31)
[2017-01-31] MEDS: HumuLIN R SC PRN ×4 (06:14→21:43)
[2017-01-31] MEDS: GLUCOPHAGE PO SCH ×2 (06:15→16:46)
[2017-01-31] MEDS: SOLU-Medrol 40 MG VIAL IVP SCH ×3 (06:15→21:37)
[2017-01-31] MEDS: ZOSYN VIAL 3.375 GM IV SCH ×3 (06:16→21:40)
[2017-01-31 06:19] LABS: BASOPHILS % (AUTO) 0.2 % (0.2-1.0); HEMOGLOBIN 9.5 g/dL (12.0-16.0); LYMPHOCYTES % (AUTO) 7.9 % (21.0-51.0); MEAN CORPUSCULAR HEMOGLOBIN 26.9 pg (27.0-34.0); MEAN CORPUSCULAR HGB CONC 32.8 g/dL (33.0-35.0); MEAN PLATELET VOLUME 9.3 fL (7.4-11.0); MONOCYTES # (AUTO) 0.5 x10^3/uL (0.3-0.8); MONOCYTES % (AUTO) 3.9 % (0.0-13.0); NEUTROPHILS # (AUTO) 11.6 x10^3/uL (2.2-4.8); PLATELET COUNT 199 X10^3/uL (150.0-450.0); RED BLOOD COUNT 3.54 X10^6/uL (3.5-5.4); RED CELL DISTRIBUTION WIDTH 15.8 % (11.6-16.5); WHITE BLOOD COUNT 13.2 X10^3/uL (3.6-10.0)
[2017-01-31 06:36] LABS: ALBUMIN 2.6 g/dL (3.4-5.0); CALCIUM 9.4 mg/dL (8.5-10.1); CARBON DIOXIDE 30.4 mmol/L (21-32); COR CA(FOR HYPOALB) 10.5 mg/dL (8.5-10.1); CREATININE 1.3 mg/dL (0.55-1.02); TOTAL PROTEIN 6.8 g/dL (6.4-8.2)
--- NOTE | 2017-01-31 06:54 | RAD ---
HISTORY: Pneumonia, shortness of breath. Prior history of diabetes, COPD, asthma, hypertension and C HF. Study: Single-view chest, done portably Comparison: 01/30/2017. Findings: There is some interval improvement in the left upper lobe opacity compared to the prior study. A smal l amount of edema or infiltrate remains. The trachea is midline. There is cardiomegaly with atheroscl erotic calcification and uncoiling of the aortic arch. Pulmonary vascular congestion is appreciated. There is hyperinflation of the lungs with increased interstitial markings bilaterally which may repre sent interstitial pneumonia or CHF. Osseous structures are intact. There is a implanted cardiac monit or present in the left parasternal region. IMPRESSION: Improvement in aeration in the left upper lobe as described. Other changes of cardiomegaly with CHF o r interstitial infiltrates are present. Findings appear to be superimposed upon COPD. Reported By:
[2017-01-31 07:29] LABS: BAND NEUTROPHILS % 5 % (0-10)
[2017-01-31 07:30] LABS: PLATELET MORPHOLOGY COMMENT NORMAL (NORMAL)
[2017-01-31] MEDS ORDERED: LEXAPRO ONE (08:51)
[2017-01-31] MEDS: LASIX PO SCH ×2 (09:19→21:38)
[2017-01-31] MEDS: ZOCOR TAB 20 MG PO SCH (09:19)
[2017-01-31] MEDS: LEXAPRO PO SCH (09:20)
[2017-01-31] MEDS: SYNTHROID 100 mcg TAB PO SCH (09:20)
[2017-01-31] MEDS: ASPIRIN 81 MG CHEWTAB PO SCH (09:20)
[2017-01-31] MEDS: PriLOSEC PO SCH (09:20)
[2017-01-31] MEDS: MAG-OX TAB PO SCH ×2 (09:21→21:38)
[2017-01-31] MEDS: PATIENT'S HOME MEDICATION PO SCH (09:30)
[2017-01-31] MEDS: ULORIC PO SCH (09:30)
[2017-01-31] MEDS: LOTENSIN TAB 10 MG PO SCH (10:42)
[2017-01-31] MEDS: CREON PO SCH ×2 (10:43→21:39)
[2017-01-31] MEDS: TUSSIONEX PENNKINETIC SUSP PO PRN (13:57)
[2017-01-31] MEDS: MIRAPEX TAB 0.25 MG PO SCH (21:39)
[2017-01-31] MEDS: LANTUS SC SCH (21:40)
[2017-01-31] MEDS: ROBITUSSIN DM PO PRN (21:56)
[2017-02-01] MEDS: DUONEB 0.5 MG/3 MG NEB SCH ×3 (00:38→08:38)
[2017-02-01] MEDS: SNACK - Diabetic Appropriate PO SCH (01:05)
[2017-02-01] MEDS ORDERED: NS 100 ML IV + SPIKE MINIBAG* 100 ML IV ONE (05:03)
[2017-02-01] MEDS ORDERED: GLUCOPHAGE ONE ×2 (05:09→08:54)
[2017-02-01] MEDS: TUSSIONEX PENNKINETIC SUSP PO PRN (05:28)
[2017-02-01] MEDS: SOLU-Medrol 40 MG VIAL IVP SCH (05:29)
[2017-02-01 06:12] LABS: BASOPHILS % (AUTO) 0.1 % (0.2-1.0); HEMATOCRIT 29.1 % (36.0-47.0); HEMOGLOBIN 9.4 g/dL (12.0-16.0); LYMPHOCYTES # (AUTO) 1.7 X10^3/uL (1.3-2.9); LYMPHOCYTES % (AUTO) 10.8 % (21.0-51.0); MEAN CORPUSCULAR HEMOGLOBIN 26.4 pg (27.0-34.0); MEAN CORPUSCULAR HGB CONC 32.4 g/dL (33.0-35.0); MEAN CORPUSCULAR VOLUME 81.5 fL (80.0-100.0); MEAN PLATELET VOLUME 9.1 fL (7.4-11.0); MONOCYTES # (AUTO) 0.6 x10^3/uL (0.3-0.8); MONOCYTES % (AUTO) 4.1 % (0.0-13.0); PLATELET COUNT 223 X10^3/uL (150.0-450.0); RED BLOOD COUNT 3.57 X10^6/uL (3.5-5.4); RED CELL DISTRIBUTION WIDTH 16.1 % (11.6-16.5); WHITE BLOOD COUNT 15.3 X10^3/uL (3.6-10.0)
[2017-02-01] MEDS: HumuLIN R SC PRN (06:14)
[2017-02-01] MEDS: ZOSYN VIAL 3.375 GM IV SCH (06:14)
[2017-02-01] MEDS: NS 1/2 1000 ML IV 1,000 ML IV SCH ×2 (06:16→10:14)
[2017-02-01 06:43] LABS: ALBUMIN 2.5 g/dL (3.4-5.0); CALCIUM 9.1 mg/dL (8.5-10.1); CARBON DIOXIDE 31.9 mmol/L (21-32); COR CA(FOR HYPOALB) 10.3 mg/dL (8.5-10.1); CREATININE 1.29 mg/dL (0.55-1.02); TOTAL PROTEIN 6.4 g/dL (6.4-8.2)
[2017-02-01 07:02] LABS: BAND NEUTROPHILS % 2 % (0-10)
[2017-02-01 07:03] LABS: PLATELET MORPHOLOGY COMMENT NORMAL (NORMAL)
[2017-02-01] MEDS: GLUCOPHAGE PO SCH ×2 (08:00→09:11)
--- NOTE | 2017-02-01 08:22 | RAD ---
HISTORY: Pneumonia, shortness breath Study: Single-view chest, done portably Comparison: 01/31/2017. Findings: Implanted director of cardiac rehabilitation is present in the left parasternal region. The trachea is midline. There is cardiomegaly with atherosclerotic calcification and uncoiling of the aortic arch. Some improvement i n pulmonary vascular congestion is seen. Improved aeration is noted in both lungs with residual foci of increased interstitial markings, some of which are linear and some of which are peribronchial. No pleural fluid or pneumothorax is seen. Osseous structures are intact. IMPRESSION: Improvement in lung aeration bilaterally with residual areas of increased interstitial markings repre senting interstitial pneumonia or edema. Reported By:
[2017-02-01 08:30] VITALS: BP 165/70
[2017-02-01] MEDS ORDERED: LEXAPRO ONE (08:53)
[2017-02-01] MEDS: CREON PO SCH (09:08)
[2017-02-01] MEDS: LEXAPRO PO SCH (09:08)
[2017-02-01] MEDS: ZOCOR TAB 20 MG PO SCH (09:09)
[2017-02-01] MEDS: PriLOSEC PO SCH (09:09)
[2017-02-01] MEDS: SYNTHROID 100 mcg TAB PO SCH (09:10)
[2017-02-01] MEDS: LOTENSIN TAB 10 MG PO SCH (09:10)
[2017-02-01] MEDS: LASIX PO SCH (09:10)
[2017-02-01] MEDS: ULORIC PO SCH (09:11)
[2017-02-01] MEDS: ASPIRIN 81 MG CHEWTAB PO SCH (09:11)
[2017-02-01] MEDS: PATIENT'S HOME MEDICATION PO SCH (09:12)
[2017-02-01] MEDS: MAG-OX TAB PO SCH (09:12)
[2017-02-01] MEDS: ROBITUSSIN DM PO PRN (10:42)
== END 2017-02-01 11:25 | disposition home or self-care (01) | DRG 178 ==
LOC: ER 21:44 → MED/SURG 01-27 02:33
PROVIDERS: ADMIT Internal Medicine; ATTEND Internal Medicine
DX: J15.0 Pneumonia due to Klebsiella pneumoniae (principal); J13 Pneumonia due to Streptococcus pneumoniae; R59.0 Localized enlarged lymph nodes; R06.02 Shortness of breath; E11.65 Type 2 diabetes mellitus with hyperglycemia; K21.9 Gastro-esophageal reflux disease without esophagitis; I10 Essential (primary) hypertension; J44.0 Chronic obstructive pulmonary disease with (acute) lower respiratory infection; Z99.81 Dependence on supplemental oxygen; D72.828 Other elevated white blood cell count; I50.9 Heart failure, unspecified; E03.8 Other specified hypothyroidism; E78.2 Mixed hyperlipidemia; Z79.4 Long term (current) use of insulin; M1A.9XX0 Chronic gout, unspecified, without tophus (tophi); F33.8 Other recurrent depressive disorders
CPT/HCPCS: 36415; 71010; 71020; 71250; 80053; 85025; 87040; 87070; 87077; 87186; 87205; 93005; 93010; 94640; 94760; 96365; 96367; 96374; 96375; 99284; A4217; A4222; J0456; J0696; J1815; J2543; J2920; J2930; J7620

== ENCOUNTER 2017-06-06 21:30 | Observation (INO) | payer OTHER, MEDICAID ==
--- NOTE | 2017-06-06 22:01 | DR.GENAD ---
HPI - PCP Primary Care Physician: jose - Complaint/Symptoms Chief Complaint Doctors Comments: Patient presents with complaint of swelling in the lower extremities and dyspnea. She admits to COPD use prn (BID) medication, sleeps on hospital bed elevated back 90 degrees Chief Complaint:: short of breath swelling in legs. - Source History Provided: Patient - Mode of Arrival Mode of Arrival: Ambulatory - Timing Onset of Chief Complaint: 06/03/17 PMH - PMH Past Medical History: Yes Past Medical History: Arthritis, Asthma, CHF, COPD, Diabetes, GERD, Gout, Hypertension Past Surgical History: Yes Surgical History: Angioplasty/Stents, , Cholecystectomy, Hysterectomy, Ortho Surgery, Other - Family History History of Family Medical Conditions: Yes Family Medical History: Diabetes Mellitus, Cancer, [place], Hypertension - Social History Does patient currently use any type of tobacco product: No Have you used tobacco products in the last 12 months: No Type of Tobacco Use: None Does any household member use tobacco: No Alcohol Use: None Do you use any recreational Drugs:: No Lives With: Family Lives Where: Home - infectious screening In the last 2 months have you had wt loss of >10#?: NO Have you had fever, night sweats or hemotysis?: No Have you traveled outside the country in the last 6 months?: No Isolation: Standard ROS - Review of Systems Constitutional: See HPI Eyes: No Symptoms Reported ENTM: No Symptoms Reported Respiratoy: No Symptoms Reported Cardiovascular: No Symptoms Reported Gastrointestinal/Abdominal: No Symptoms Reported Genitourinary: No Symptoms Reported Neurological: No Symptoms Reported Musculoskeletal: No Symptoms Reported Integumentary: No Symptoms Reported Hematologic/Lymphatic: No Symptoms Reported Endocrine: No Symptoms Reported Psychiatric: No Symptoms Reported All Other Systems: Reviewed and Negative PE - Vital Signs Vitals: Temperature 97.9 F Pulse Rate 70 Respiratory Rate 26 Blood Pressure [Right Arm] 165/70 Blood Pressure [Left Arm] 148/67 Blood Pressure 167/73 O2 Sat by Pulse Oximetry 98 - General Limitations: No Limitations General Appearance: Alert, In No Apparent Distress - Head Head Exam: Normal Inspection, Atraumatic - Eyes Eye exam: Normal Appearance, PERRL, EOMI - ENT ENT Exam: Normal Exam External Ear Exam: Normal External Inspection TM/Canal Exam: Bilateral Normal Nose Exam: Normal Nose Exam Mouth Exam: Normal Inspection, Drooling Throat Exam: Normal Inspection - Neck Neck Exam: Normal Inspection, Full ROM - Chest Chest Inspection: Normal Inspection - Respiratory Respiratory Exam: Normal Lung Sounds Bilat Respiratory Exam: Bilateral Clear to Auscultation - Cardiovascular Cardiovascular Exam: Regular Rate, Normal Rhythm - Abdominal Exam Abdominal Exam: Normal Inspection, Normal Bowel Sounds Abdominal Tenderness: negative: RUQ, RLQ, LUQ, LLQ, Epigastrium, Suprapubic, Diffuse, Mild, Moderate, Severe, Other - Extremities Extremities Exam: Normal Inspection, Full ROM - Back Back Exam: Normal Inspection, Full ROM, Other (non pitting) - Neurologic Neurological Exam: Alert, Oriented X3, CN II-XII Intact - Psychiatric Psychiatric Exam: Normal Affect - Skin Skin Exam: Warm, Dry, Intact Course - Reevaluation 1st: Unchanged - Consultation Called: 23:30 (Dr Cam agreed to admit for VQ scan in AM) ROR - Labs Reviewed Laboratory Results Reviewed?: Yes (D Dimer 605) Result Diagrams: 06/06/17 22:14 06/06/17 22:14 Laboratory: WBC 12.6 X10^3/uL (3.6-10.0) H 06/06/17 22:14 RBC 3.93 X10^6/uL (3.5-5.4) 06/06/17 22:14 Hgb 10.8 g/dL (12.0-16.0) L 06/06/17 22:14 Hct 31.8 % (36.0-47.0) L 06/06/17 22:14 MCV 80.8 fL (80.0-100.0) 06/06/17 22:14 MCH 27.4 pg (27.0-34.0) 06/06/17 22:14 MCHC 33.8 g/dL (33.0-35.0) 06/06/17 22:14 RDW 16.2 % (11.6-16.5) 06/06/17 22:14 Plt Count 200 X10^3/uL (150.0-450.0) 06/06/17 22:14 MPV 8.7 fL (7.4-11.0) 06/06/17 22:14 Neut % 59.0 % (42.0-75.0) 06/06/17 22:14 Lymph % 29.5 % (21.0-51.0) 06/06/17 22:14 [place] % 7.0 % (0.0-13.0) 06/06/17 22:14 Eos % 3.7 % (0.9-2.9) H 06/06/17 22:14 Baso % 0.8 % (0.2-1.0) 06/06/17 22:14 Neut # 7.4 x10^3/uL (2.2-4.8) H 06/06/17 22:14 Lymph # 3.7 X10^3/uL (1.3-2.9) H 06/06/17 22:14 [place] # 0.9 x10^3/uL (0.3-0.8) H 06/06/17 22:14 Eos # 0.5 x10^3/uL (0.0-0.2) H 06/06/17 22:14 Baso # 0.1 X10^3/uL (0.0-0.1) 06/06/17 22:14 Absolute Nucleated RBC 0.0 /100WBC 06/06/17 22:14 D-Dimer 605 ng/mL (0-400) H* 06/06/17 22:14 Sodium 140 mmol/L (136-145) 06/06/17 22:14 Corrected Sodium 142 mmol/L (136-145) 06/06/17 22:14 Potassium 3.5 mmol/L (3.5-5.1) 06/06/17 22:14 Chloride 101 mmol/L (98-107) 06/06/17 22:14 Carbon Dioxide 30.6 mmol/L (21-32) 06/06/17 22:14 BUN 22 mg/dL (7-18) H 06/06/17 22:14 Creatinine 1.17 mg/dL (0.55-1.02) H 06/06/17 22:14 Est GFR (MDRD) Af Amer 59 (>60) 06/06/17 22:14 Est GFR (MDRD) Non-Af 49 (>60) L 06/06/17 22:14 Glucose 185 mg/dL (65-99) H 06/06/17 22:14 Calcium 8.5 mg/dL (8.5-10.1) 06/06/17 22:14 - XRAY XRAY Interpreted by: Radiologist (Chest:Stable cardiomegaly without edema or other acute chest process.) - Diagnosis Discharge Problem: R/O Pulmonary Embolus, D-dimer, elevated Dyspnea Qualifiers: Dyspnea type: shortness of breath Qualified Code(s): R06.02 - Shortness of breath; R06.00 - Dyspnea, unspecified; R06.01 - Orthopnea - Discharge Plan Condition: Stable - Follow ups/Referrals Follow ups/Referrals: NATHANIEL SZYMANSKI [Primary Care Provider] - 3 days - Instructions
[2017-06-06 22:18] LABS: BASOPHILS # (AUTO) 0.1 X10^3/uL (0.0-0.1); BASOPHILS % (AUTO) 0.8 % (0.2-1.0); EOSINOPHILS # (AUTO) 0.5 x10^3/uL (0.0-0.2); EOSINOPHILS % (AUTO) 3.7 % (0.9-2.9); HEMATOCRIT 31.8 % (36.0-47.0); HEMOGLOBIN 10.8 g/dL (12.0-16.0); LYMPHOCYTES # (AUTO) 3.7 X10^3/uL (1.3-2.9); LYMPHOCYTES % (AUTO) 29.5 % (21.0-51.0); MEAN CORPUSCULAR HEMOGLOBIN 27.4 pg (27.0-34.0); MEAN CORPUSCULAR HGB CONC 33.8 g/dL (33.0-35.0); MEAN CORPUSCULAR VOLUME 80.8 fL (80.0-100.0); MEAN PLATELET VOLUME 8.7 fL (7.4-11.0); MONOCYTES # (AUTO) 0.9 x10^3/uL (0.3-0.8); NEUTROPHILS # (AUTO) 7.4 x10^3/uL (2.2-4.8); PLATELET COUNT 200 X10^3/uL (150.0-450.0); RED BLOOD COUNT 3.93 X10^6/uL (3.5-5.4); RED CELL DISTRIBUTION WIDTH 16.2 % (11.6-16.5); WHITE BLOOD COUNT 12.6 X10^3/uL (3.6-10.0)
[2017-06-06] MEDS ORDERED: DUONEB 0.5 MG/3 MG NEB ONE (22:20)
[2017-06-06 22:24] LABS: CALCIUM 8.5 mg/dL (8.5-10.1); CARBON DIOXIDE 30.6 mmol/L (21-32); CREATININE 1.17 mg/dL (0.55-1.02)
--- NOTE | 2017-06-06 22:24 | RAD ---
Chest, AP Indication: Shortness of breath Comparison: 02/01/2017 Findings: Cardiac silhouette size is mildly enlarged, unchanged. There are mild chronic interstitial changes of the lungs, without overt edema, dense infiltrate, or large effusion. Impression: Stable cardiomegaly without edema or other acute chest process. Reported By:
[2017-06-06] MEDS ORDERED: HumuLIN R SUBCUT PRN (23:41)
[2017-06-07] MEDS ORDERED: Atrovent NEB TX 0.02% IN PRN (00:10)
[2017-06-07] MEDS ORDERED: ATIVAN TAB 1 MG PO PRN (00:10)
[2017-06-07] MEDS ORDERED: INSULIN GLARGINE SC PRN (00:10)
[2017-06-07] MEDS ORDERED: NORCO 10/325 TAB PO PRN (00:10)
[2017-06-07] MEDS ORDERED: PATIENT'S HOME MEDICATION (Potassium Chloride [Klor-Con 10 (10 Meq)] 10 MEQ) PO PRN (00:10)
[2017-06-07] MEDS ORDERED: PROVENTIL NEB TX 0.083% 2.5MG/ 3ML IN PRN (00:10)
[2017-06-07] MEDS: NS 1000 ML 1,000 ML IV SCH ×2 (01:35→12:49)
[2017-06-07 01:48] VITALS: BMI 42.6
[2017-06-07] MEDS ORDERED: MICRO K EXTEN CAP 10 MEQ PO PRN (05:50)
[2017-06-07] MEDS ORDERED: GLUCOPHAGE ONE ×2 (06:24→17:18)
[2017-06-07] MEDS: SYNTHROID 112 mcg TAB PO SCH (06:31)
[2017-06-07] MEDS: GLUCOPHAGE PO SCH ×2 (06:31→17:49)
[2017-06-07 06:39] LABS: BASOPHILS # (AUTO) 0.1 X10^3/uL (0.0-0.1); BASOPHILS % (AUTO) 0.9 % (0.2-1.0); EOSINOPHILS # (AUTO) 0.3 x10^3/uL (0.0-0.2); EOSINOPHILS % (AUTO) 3.2 % (0.9-2.9); HEMATOCRIT 28.3 % (36.0-47.0); HEMOGLOBIN 9.6 g/dL (12.0-16.0); LYMPHOCYTES # (AUTO) 3.8 X10^3/uL (1.3-2.9); LYMPHOCYTES % (AUTO) 36.5 % (21.0-51.0); MEAN CORPUSCULAR HEMOGLOBIN 27.6 pg (27.0-34.0); MEAN CORPUSCULAR VOLUME 81.2 fL (80.0-100.0); MONOCYTES # (AUTO) 0.6 x10^3/uL (0.3-0.8); MONOCYTES % (AUTO) 6.1 % (0.0-13.0); NEUTROPHILS # (AUTO) 5.6 x10^3/uL (2.2-4.8); NEUTROPHILS % (AUTO) 53.3 % (42.0-75.0); PLATELET COUNT 181 X10^3/uL (150.0-450.0); RED BLOOD COUNT 3.49 X10^6/uL (3.5-5.4); RED CELL DISTRIBUTION WIDTH 16.3 % (11.6-16.5); WHITE BLOOD COUNT 10.5 X10^3/uL (3.6-10.0)
[2017-06-07 06:48] LABS: ALBUMIN 2.9 g/dL (3.4-5.0); CARBON DIOXIDE 29.9 mmol/L (21-32); COR CA(FOR HYPOALB) 8.9 mg/dL (8.5-10.1); CREATININE 1.27 mg/dL (0.55-1.02); TOTAL PROTEIN 6.1 g/dL (6.4-8.2)
[2017-06-07 07:14] LABS: CREATINE KINASE 51 Units/L (26-192); TROPONIN I < 0.02 ng/mL (0-1.5)
[2017-06-07] MEDS ORDERED: LEXAPRO ONE (08:17)
[2017-06-07] MEDS: ZOCOR TAB 20 MG PO SCH (08:52)
[2017-06-07] MEDS: ASPIRIN 81 MG CHEWTAB PO SCH (08:52)
[2017-06-07] MEDS: LEXAPRO PO SCH (08:52)
[2017-06-07] MEDS: MAG-OX TAB PO SCH ×2 (08:52→20:37)
[2017-06-07] MEDS: PriLOSEC PO SCH (08:52)
[2017-06-07] MEDS ORDERED: PATIENT'S HOME MEDICATION (Metformin Hcl [Metformin Hcl] 1,000 MG) PO SCH (09:00)
[2017-06-07] MEDS ORDERED: SYNTHROID 100 mcg TAB PO SCH (09:00)
[2017-06-07] MEDS ORDERED: PATIENT'S HOME MEDICATION (Escitalopram Oxalate [Escitalopram Oxalate] 20 MG) PO SCH (09:00)
[2017-06-07] MEDS: DOFETILIDE 250 MCG PO SCH ×2 (09:21→20:39)
[2017-06-07] MEDS: LOTENSIN TAB 10 MG PO SCH (09:21)
[2017-06-07] MEDS: [UNRECOGNIZED DRUG - OTHER] PO SCH ×2 (09:22→20:40)
[2017-06-07] MEDS: LIPASE PO SCH ×2 (09:22→20:40)
[2017-06-07] MEDS: PROTEASE PO SCH ×2 (09:22→20:40)
[2017-06-07] MEDS: LASIX PO SCH ×2 (09:22→20:38)
[2017-06-07] MEDS: AMYLASE PO SCH ×2 (09:22→20:40)
[2017-06-07] MEDS: ULORIC PO SCH (10:20)
--- NOTE | 2017-06-07 10:50 | NM ---
HISTORY: Shortness of breath, elevated D-dimer of 605. Prior history of COPD, asthma, CHF. Squamous cell carcinoma. Study: Radionuclide ventilation and perfusion scans of the lungs. Comparison: Chest x-ray done 06/06/2017, CT scan of the chest, noncontrast, done 01/28/2017. Technique: Pulmonary ventilation imaging was performed utilizing 30 mCi of 99 M technetium labeled DT PA, administered by inhalation. Six static images of the lungs are provided. Pulmonary perfusion imag ing was performed by injecting 5.3 mCi of 99 M technetium labeled MAA intravenously. Six static image s of the lungs are provided. Findings: There are matching ventilation and perfusion defects present bilaterally, all of which appear subsegm ental. Findings are likely on the basis of airspace disease with a low probability for pulmonary embo von. IMPRESSION: Low probability for pulmonary embolus. Reported By:
--- NOTE | 2017-06-07 15:05 | DR.H&P ---
H&P - History & Physical for Day of: H&P Date: 06/06/17 - Chief Complaint Chief Complaint: lower leg swelling and shortness of breath - Allergies Allergies/Adverse Reactions: Allergies Allergy/AdvReac Type Severity Reaction Status Date / Time levofloxacin [From Levaquin] Allergy Verified 01/26/17 21:49 - History of Present Illness History of Present Illness: 66 WF ER ADMISSION AFTER PRESENTING WITH CO LOWER EXTREMITY SWELLING AND INCREASED SHORTENESS OF BREATH. PT HAD ELEVATED D DIMER AND DUE TO RENAL FUNCTION COULD NOT HAVE IV DYE, PT ADMITTED FOR VQLUNG SCAN TO RO PE AND TREATEMENT OF EDEMA AND RESP DISTRESS. PT HAS PMH OF DM, HTN, CAD, OA. PT STATES SHE SEES DR GÓMEZ IN [place] FOR HER HEART. - Past Medical History Past Medical History: Arthritis, Asthma, CHF, COPD, Diabetes, GERD, Gout, Hypertension - Past Surgical History Surgical History: Angioplasty/Stents, , Cholecystectomy, Hysterectomy, Ortho Surgery, Other - Family History Family Medical History: Diabetes Mellitus, Cancer, [place], Hypertension - Social History Does patient currently use any type of tobacco product: No Have you used tobacco products in the last 12 months: No Type of Tobacco Use: None Does any household member use tobacco: No Alcohol Use: None Drug Use: None - Review of Systems Constitutional: Weakness Eyes: No Symptoms Reported ENT: No Symptoms Reported Respiratory: Shortness of Breath, SOB with Excertion Cardiovascular: No Symptoms Reported, Edema Gastrointestinal: No Symptoms Reported Genitourinary: No Symptoms Reported Musculoskeletal: Back Pain, Leg Pain Skin: No Symptoms Reported Neurological: No Symptoms Reported - Physical Exam Vital Signs: Temperature 97.5 F Pulse Rate [Right Radial] 77 Pulse Rate 70 Respiratory Rate 20 Blood Pressure [Right Arm] 111/53 Blood Pressure [Left Arm] 148/67 Blood Pressure 167/73 O2 Sat by Pulse Oximetry 91 Oriented: Normal Eyes: Normal Ear: Normal Nose: Normal Throat: Normal Respiratory: Wheezes Throughout, RLL Diminished, LLL Diminished Cardiovascular: Normal, Edema : Normal Auscultation: Bowel Sounds: Normal Palpation: Normal Tenderness: Normal Skin: Normal Musculoskeletal: Right, Left, Leg, Back:Lumbar Mood Description: Calm Speech Pattern: Clear, Appropriate - Assessment/Plan (1) Dyspnea Qualifiers: Dyspnea type: shortness of breath Qualified Code(s): R06.02 - Shortness of breath; R06.00 - Dyspnea, unspecified; R06.01 - Orthopnea Status: Acute Plan: ADMIT, RESP CONSULT. SUPPLEMENTAL O2, VQ SCAN. RESUME HOME MEDS. BP AND LIPID CONTROL. PAIN CONTROL (2) Bilateral lower extremity edema Status: Acute (3) D-dimer, elevated Status: Acute (4) COPD (chronic obstructive pulmonary disease) Qualifiers: COPD type: COPD with acute lower respiratory infection Qualified Code(s): J44.0 - Chronic obstructive pulmonary disease with acute lower respiratory infection Status: Chronic (5) Diabetes mellitus Qualifiers: Diabetes mellitus type: type 2 Diabetes mellitus complication status: with unspecified complications Diabetes mellitus technician terminal and repeater insulin use: with technician terminal and repeater use Qualified Code(s): E11.8 - Type 2 diabetes mellitus with unspecified complications; Z79.4 - longterm (current) use of insulin; Z79.4 - longterm ( current) use of insulin; Z79.4 - vermin exterminator (current) use of insulin; Z79.4 - longterm (current) use of insulin Status: Chronic (6) Hyperlipidemia Qualifiers: Hyperlipidemia type: mixed hyperlipidemia Qualified Code(s): E78.2 - Mixed hyperlipidemia Status: Chronic (7) Hypertension Qualifiers: Hypertension type: essential hypertension Qualified Code(s): I10 - Essential (primary) hypertension Status: Chronic
[2017-06-07] MEDS ORDERED: MIRAPEX TAB 0.25 MG PO SCH (21:00)
[2017-06-07] MEDS ORDERED: PRAMIPEXOLE DIHYDROCHLORIDE 0.25 MG PO SCH (21:00)
--- NOTE | 2017-06-07 21:42 | VAS ---
Ultrasound bilateral lower extremity venous Doppler Indication: Leg pain and elevated D-dimer Comparison: No recent similar priors available. Technique: Dynamic grayscale, color and spectral Doppler imaging through the bilateral lower extremit y veins with compression techniques and spectral analysis. Findings: The Bilateral common femoral veins, superficial femoral veins and popliteal veins are paten t and compressible with normal respiratory phasicity. Initial imaging showed potential noncompressibi lity of the right superficial femoral vein but this was repeated and is normal. Impression: No right or left lower extremity vein thrombosis seen. Reported By:
[2017-06-08] MEDS: NS 1000 ML 1,000 ML IV SCH ×2 (02:06→14:35)
[2017-06-08] MEDS ORDERED: GLUCOPHAGE ONE (05:20)
[2017-06-08 05:33] LABS: BASOPHILS # (AUTO) 0.1 X10^3/uL (0.0-0.1); BASOPHILS % (AUTO) 0.8 % (0.2-1.0); EOSINOPHILS # (AUTO) 0.3 x10^3/uL (0.0-0.2); EOSINOPHILS % (AUTO) 3.1 % (0.9-2.9); HEMATOCRIT 28.9 % (36.0-47.0); HEMOGLOBIN 9.9 g/dL (12.0-16.0); LYMPHOCYTES # (AUTO) 2.4 X10^3/uL (1.3-2.9); LYMPHOCYTES % (AUTO) 26.3 % (21.0-51.0); MEAN CORPUSCULAR HEMOGLOBIN 27.6 pg (27.0-34.0); MEAN CORPUSCULAR HGB CONC 34.1 g/dL (33.0-35.0); MEAN CORPUSCULAR VOLUME 80.8 fL (80.0-100.0); MEAN PLATELET VOLUME 9.3 fL (7.4-11.0); MONOCYTES # (AUTO) 0.7 x10^3/uL (0.3-0.8); MONOCYTES % (AUTO) 7.2 % (0.0-13.0); NEUTROPHILS # (AUTO) 5.8 x10^3/uL (2.2-4.8); NEUTROPHILS % (AUTO) 62.6 % (42.0-75.0); PLATELET COUNT 170 X10^3/uL (150.0-450.0); RED BLOOD COUNT 3.58 X10^6/uL (3.5-5.4); RED CELL DISTRIBUTION WIDTH 15.9 % (11.6-16.5); WHITE BLOOD COUNT 9.3 X10^3/uL (3.6-10.0)
[2017-06-08 05:43] LABS: ALANINE AMINOTRANSFERASE 24 Units/L (12-78); ALBUMIN 2.8 g/dL (3.4-5.0); ALKALINE PHOSPHATASE 90 Units/L (46-116); ASPARTATE AMINO TRANSFERASE 20 Units/L (15-37); BLOOD UREA NITROGEN 22 mg/dL (7-18); CALCIUM 8.3 mg/dL (8.5-10.1); CARBON DIOXIDE 29.2 mmol/L (21-32); CHLORIDE 104 mmol/L (98-107); COR CA(FOR HYPOALB) 9.3 mg/dL (8.5-10.1); COR NA(FOR HYPERGLY) 141 mmol/L (136-145); SODIUM 140 mmol/L (136-145); TOTAL PROTEIN 6.1 g/dL (6.4-8.2); eGFR BLACK RACES > 60 (>60); eGFR NON BLACK RACES 59 (>60)
[2017-06-08] MEDS: GLUCOPHAGE PO SCH (06:06)
[2017-06-08] MEDS: SYNTHROID 112 mcg TAB PO SCH (06:06)
[2017-06-08] MEDS ORDERED: LEXAPRO ONE (09:20)
[2017-06-08] MEDS: DOFETILIDE 250 MCG PO SCH (09:23)
[2017-06-08] MEDS: ASPIRIN 81 MG CHEWTAB PO SCH (09:23)
[2017-06-08] MEDS: LASIX PO SCH (09:24)
[2017-06-08] MEDS: [UNRECOGNIZED DRUG - OTHER] PO SCH (09:24)
[2017-06-08] MEDS: AMYLASE PO SCH (09:24)
[2017-06-08] MEDS: PROTEASE PO SCH (09:24)
[2017-06-08] MEDS: LIPASE PO SCH (09:24)
[2017-06-08] MEDS: ZOCOR TAB 20 MG PO SCH (09:25)
[2017-06-08] MEDS: LOTENSIN TAB 10 MG PO SCH (09:25)
[2017-06-08] MEDS: MAG-OX TAB PO SCH (09:25)
[2017-06-08] MEDS: PriLOSEC PO SCH (09:25)
[2017-06-08] MEDS: ULORIC PO SCH (09:26)
[2017-06-08] MEDS: LEXAPRO PO SCH (09:26)
[2017-06-08 14:13] VITALS: BP 131/61
== END 2017-06-08 15:45 | disposition home or self-care (01) ==
LOC: ER 21:45 → MED/SURG 23:39
PROVIDERS: ADMIT Internal Medicine; ATTEND Internal Medicine
DX: R06.02 Shortness of breath (principal); R06.00 Dyspnea, unspecified; R06.01 Orthopnea; R79.1 Abnormal coagulation profile; N18.9 Chronic kidney disease, unspecified; R60.0 Localized edema; J44.0 Chronic obstructive pulmonary disease with (acute) lower respiratory infection; E11.8 Type 2 diabetes mellitus with unspecified complications; Z79.4 Long term (current) use of insulin; E78.2 Mixed hyperlipidemia; I10 Essential (primary) hypertension; Z86.79 Personal history of other diseases of the circulatory system; I51.7 Cardiomegaly; E86.0 Dehydration
CPT/HCPCS: 36415; 71045; 78582; 80048; 80053; 82550; 82553; 84484; 85025; 85378; 93005; 93010; 93970; 94640; 94760; 99284; 99285; A4216; A4222; A9540; A9567; G0378; J7620

== ENCOUNTER 2021-04-24 19:00 | Inpatient (IN) ==
[2021-04-24 19:07] VITALS: BMI 39.4
[2021-04-24 21:36] LABS: BASOPHILS # (AUTO) 0.1 X10^3/uL (0.0-0.1); BASOPHILS % (AUTO) 1.1 % (0.2-1.0); EOSINOPHILS # (AUTO) 0.2 x10^3/uL (0.0-0.2); EOSINOPHILS % (AUTO) 3.3 % (0.9-2.9); HEMOGLOBIN 12.4 g/dL (12.0-16.0); LYMPHOCYTES % (AUTO) 39.4 % (21.0-51.0); MEAN CORPUSCULAR HGB CONC 33.4 g/dL (33.0-35.0); MEAN CORPUSCULAR VOLUME 80.8 fL (80.0-100.0); MEAN PLATELET VOLUME 9.1 fL (7.4-11.0); MONOCYTES # (AUTO) 0.9 x10^3/uL (0.3-0.8); MONOCYTES % (AUTO) 11.5 % (0.0-13.0); NEUTROPHILS # (AUTO) 3.4 x10^3/uL (2.2-4.8); NEUTROPHILS % (AUTO) 44.7 % (42.0-75.0); RED BLOOD COUNT 4.58 X10^6/uL (3.5-5.4); RED CELL DISTRIBUTION WIDTH 16.8 % (11.6-16.5); WHITE BLOOD COUNT 7.5 X10^3/uL (3.6-10.0)
[2021-04-24] MEDS ORDERED: DUONEB 0.5 MG/3 MG (3 mL) NEB ONE (21:54)
[2021-04-24] MEDS ORDERED: SOLU-Medrol 125 MG VIAL IVP ONE (21:54)
--- NOTE | 2021-04-24 21:54 | DR.SOBA ---
HPI Time Seen Time Seen by Provider: 04/24/21 21:05 Primary Care Physician Primary Care Physician: shani Complaints Chief Complaint Doctors Comments: 70 y/o female presents with dyspnea. Present over the past 3 days, getting worse.Has a h/o COPD, was hospitalized 3 weeks ago at another facility for pneumonia and exacerbation of COPD. Improved, now ill again. + dry cough, worsening. + bilateral rib pain from coughing. Denies nasal congestion, sore throat. Running low grade fever, having slight diarrhea. Denies N/V or urinary symptoms. Had Covid 1 year ago, is vaccinated. Has not been around ill individuals. Chief Complaint:: pt states" I FEEL LIKE I CAN'T BREATH I WAS IN [facility] 3 WEEKS AGO WITH PNEUMONIA." COVID-19 Coronavirus risk:travel/contact w/high risk person: No Has patient experienced Coronavirus symptoms: Yes Coronavirus symptoms experienced: Fever, Coughing and Shortness of Breath Reviewed Nurses Notes Reviewed: Yes Source History Provided: Patient Mode of Arrival Mode of Arrival: Ambulatory Timing Onset of Chief Complaint: 04/21/21 PMH PMH Past Medical History: Yes Past Medical History: Arthritis, Asthma, CHF, COPD, Diabetes, GERD, Gout and Hypertension Past Surgical History: Yes Surgical History: Angioplasty/Stents, , Cholecystectomy, Hysterectomy, Ortho Surgery and Other Family History History of Family Medical Conditions: Yes Family Medical History: Diabetes Mellitus, Cancer, [place] and Hypertension Social History Does patient currently use any type of tobacco product: No Type of Tobacco Use: None Does any household member use tobacco: No Alcohol Use: None Do you use any recreational Drugs:: No Lives With: Family Lives Where: Home Infectious screening In the last 2 months have you had wt loss of >10#?: NO Have you had fever, night sweats or hemotysis?: No Have you traveled outside the country in the last 6 months?: No Isolation: Droplet ROS Review of Systems Constitutional: Fever and Weakness Eyes: No Symptoms Reported ENTM: No Symptoms Reported Respiratoy: Non-Productive Cough, Short of Breath and Wheezing Cardiovascular: No Symptoms Reported Gastrointestinal/Abdominal: No Symptoms Reported Genitourinary: No Symptoms Reported Neurological: Weakness Musculoskeletal: No Symptoms Reported Integumentary: No Symptoms Reported Hematologic/Lymphatic: No Symptoms Reported Psychiatric: No Symptoms Reported All Other Systems: Reviewed and Negative PE Vital Signs Vitals: Temperature 97.8 F Pulse Rate [Left Brachial] 69 Pulse Rate 70 Respiratory Rate 24 Blood Pressure [Right Arm] 131/68 Blood Pressure 141/65 O2 Sat by Pulse Oximetry 97 General Limitations: No Limitations General Appearance: Alert and In Distress Head Head Exam: Normal Inspection Eyes Eye exam: Normal Appearance, PERRL and EOMI ENT ENT Exam: Normal Exam, Normal Oropharynx, Mucous Membranes Moist and TM's Normal Bilaterally Neck Neck Exam: Normal Inspection and Full ROM; negative Tenderness Chest Chest Inspection: Normal Inspection and Symmetric Chest Wall Rise; negative Tenderness Respiratory Respiratory Exam: Bilateral: Wheezing and Bilateral: Rhonchi Cardiovascular Cardiovascular Exam: Regular Rate, Normal Rhythm and Normal Heart Sounds Abdominal Exam Abdominal Exam: Normal Inspection, Normal Bowel Sounds and Soft; negative Tenderness Extremities Extremities Exam: Normal Inspection and Full ROM; negative Edema Back Back Exam: Normal Inspection and Full ROM; negative Tenderness Neurologic Neurological Exam: Alert, Oriented X3 and CN II-XII Intact; negative Motor Sensory Deficit Psychiatric Psychiatric Exam: Normal Affect Skin Skin Exam: Warm and Dry MDM Differential Diagnosis Differential Diagnosis: Asthma, Bronchitis, CHF, COPD, Pneumonia and Respiratory Failure Differential Diagnosis Comment:: Covid, flu COURSE Treatment Treatment: 70 y/o female presents with dyspnea. + h/o COPD, was hospitalized with pneumonia 3 weeks ago. W/u initiated. Given duoneb treatment, IV solumedrol. W/u negative for covid, CXR without pneumonia, no evidence for cardiac etiology. Doing better, still with some wheezing, but resting. Discussed with covering hospitalist, Dr Mccarty, will admit for further observation and treatment. ROR Labs Reviewed Laboratory Results Reviewed?: Yes Result Diagrams: 04/24/21 21:18 04/24/21 21:18 Laboratory: WBC 7.5 X10^3/uL (3.6-10.0) 04/24/21 21:18 RBC 4.58 X10^6/uL (3.5-5.4) 04/24/21 21:18 Hgb 12.4 g/dL (12.0-16.0) 04/24/21 21:18 Hct 37.0 % (36.0-47.0) 04/24/21 21:18 MCV 80.8 fL (80.0-100.0) 04/24/21 21:18 MCH 27.0 pg (27.0-34.0) 04/24/21 21:18 MCHC 33.4 g/dL (33.0-35.0) 04/24/21 21:18 RDW 16.8 % (11.6-16.5) H 04/24/21 21:18 Plt Count 160 X10^3/uL (150.0-450.0) 04/24/21 21:18 MPV 9.1 fL (7.4-11.0) 04/24/21 21:18 Neut % (Auto) 44.7 % (42.0-75.0) 04/24/21 21:18 Lymph % (Auto) 39.4 % (21.0-51.0) 04/24/21 21:18 [place] % (Auto) 11.5 % (0.0-13.0) 04/24/21 21:18 Eos % (Auto) 3.3 % (0.9-2.9) H 04/24/21 21:18 Baso % (Auto) 1.1 % (0.2-1.0) H 04/24/21 21:18 Neut # (Auto) 3.4 x10^3/uL (2.2-4.8) 04/24/21 21:18 Lymph # (Auto) 3.0 X10^3/uL (1.3-2.9) H 04/24/21 21:18 [place] # (Auto) 0.9 x10^3/uL (0.3-0.8) H 04/24/21 21:18 Eos # (Auto) 0.2 x10^3/uL (0.0-0.2) 04/24/21 21:18 Baso # (Auto) 0.1 X10^3/uL (0.0-0.1) 04/24/21 21:18 Absolute Nucleated RBC 0.0 /100WBC 04/24/21 21:18 Sodium 138 mmol/L (136-145) 04/24/21 21:18 Corrected Sodium 141 mmol/L (136-145) 04/24/21 21:18 Potassium 3.4 mmol/L (3.5-5.1) L 04/24/21 21:18 Chloride 102 mmol/L (98-107) 04/24/21 21:18 Carbon Dioxide 29.1 mmol/L (21-32) 04/24/21 21:18 BUN 20 mg/dL (7-18) H 04/24/21 21:18 Creatinine 1.08 mg/dL (0.55-1.02) H 04/24/21 21:18 Est GFR (MDRD) Af Amer > 60 (>60) 04/24/21 21:18 Est GFR (MDRD) Non-Af 53 (>60) L 04/24/21 21:18 Glucose 218 mg/dL (65-99) H 04/24/21 21:18 Calcium 9.1 mg/dL (8.5-10.1) 04/24/21 21:18 Corrected Calcium 9.7 mg/dL (8.5-10.1) 04/24/21 21:18 Total Bilirubin 0.40 mg/dL (0.2-1.0) 04/24/21 21:18 AST 22 Units/L (15-37) 04/24/21 21:18 ALT 27 Units/L (12-78) 04/24/21 21:18 Alkaline Phosphatase 103 Units/L (46-116) 04/24/21 21:18 Creatine Kinase 180 Units/L (26-192) 04/24/21 21:18 CK-MB (CK-2) 1.1 ng/mL (0-4.0) 04/24/21 21:18 CK/CKMB % Calc 0.6 % (<4) 04/24/21 21:18 Troponin I High Sens 11.4 ng/L (4.0-60.0) 04/24/21 21:18 B-Natriuretic Peptide 41.6 pg/mL (0-79) 04/24/21 21:18 Total Protein 6.8 g/dL (6.4-8.2) 04/24/21 21:18 Albumin 3.2 g/dL (3.4-5.0) L 04/24/21 21:18 Globulin 3.6 g/dL (2.5-4.5) 04/24/21 21:18 Albumin/Globulin Ratio 0.9 Ratio (1.1-2.1) L 04/24/21 21:18 SARS-CoV-2 (PCR) Negative (NEGATIVE) 04/24/21 21:20 Influenza Type A (PCR) Negative (NEGATIVE) 04/24/21 21:20 Influenza Type B (PCR) Negative (NEGATIVE) 04/24/21 21:20 RSV (PCR) Negative (NEGATIVE) 04/24/21 21:20 Other Results Comments: Labs acceptable XRAY XRAY Interpreted by: Both X-ray Results: No acute abnormalities. EKG Rate: 70 [place]: RAD Rhythm: Paced Block: IVCD ST: Nonsp Opioid Opioid Risk Tool Age (Dae box if 16-45): No History of Preadolescent Sexual Abuse: No Total: 0 Total Score Risk Category: Low Risk Copyright: Noah WAYNE predicting aberrant behaviors Diagnosis Discharge Problem: COPD with acute exacerbation
[2021-04-24 21:57] LABS: ALANINE AMINOTRANSFERASE 27 Units/L (12-78); ALBUMIN 3.2 g/dL (3.4-5.0); ALKALINE PHOSPHATASE 103 Units/L (46-116); ASPARTATE AMINO TRANSFERASE 22 Units/L (15-37); BLOOD UREA NITROGEN 20 mg/dL (7-18); CALCIUM 9.1 mg/dL (8.5-10.1); CARBON DIOXIDE 29.1 mmol/L (21-32); CHLORIDE 102 mmol/L (98-107); CKMB % 0.6 % (<4); COR CA(FOR HYPOALB) 9.7 mg/dL (8.5-10.1); COR NA(FOR HYPERGLY) 141 mmol/L (136-145); CREATINE KINASE 180 Units/L (26-192); CREATINE KINASE MB 1.1 ng/mL (0-4.0); CREATININE 1.08 mg/dL (0.55-1.02); SODIUM 138 mmol/L (136-145); TOTAL PROTEIN 6.8 g/dL (6.4-8.2); eGFR NON BLACK RACES 53 (>60)
--- NOTE | 2021-04-24 22:09 | RAD ---
HISTORYpt states" I FEEL LIKE I CAN'T BREATH I WAS IN [facility] 3 WEEKS AGO WITH PNEUMONIA."STUDYCHEST, 1 [id number] lungs are clear. No pneumothorax or significant effusion.Heart size is normal.Bones are unremarkable.Left subclavian ICD is present with leads in expected location. Fixation hardware is present in the cervical spineIMPRESSION1. No significant abnormalityElectronically signed by: Simone Woods (Apr 24, 2021 22:07:32)
[2021-04-24] MEDS ORDERED: SOLU-Medrol 125 MG VIAL ONE (22:52)
[2021-04-25] MEDS ORDERED: SALINE 3% 15 ML NEB TX ONE (00:51)
[2021-04-25] MEDS ORDERED: DUONEB 0.5 MG/3 MG (3 mL) NEB ONE (00:51)
[2021-04-25] MEDS ORDERED: PATIENT'S HOME MEDICATION (Insulin Glargine [Lantus Solostar U-100 Insulin] 100 unit/mL (3 SUBCUT SCH (01:05)
[2021-04-25] MEDS ORDERED: NORCO 10/325 TAB PO PRN (01:05)
[2021-04-25] MEDS ORDERED: ROCEPHIN VIAL 1 GRAM 1 G in NS 100 ML IV + SPIKE MINIBAG* 100 ML IV SCH ×2 (01:05→21:00)
[2021-04-25] MEDS: DUONEB 0.5 MG/3 MG (3 mL) NEB SCH ×5 (01:15→20:48)
[2021-04-25] MEDS ORDERED: SALINE 3% 15 ML NEB TX NEB ONE (01:15)
[2021-04-25] MEDS ORDERED: ROCEPHIN 1 GRAM IV PREMIX 0 G/0 ML IV.SOLN. IV ONE (01:37)
[2021-04-25] MEDS ORDERED: ROCEPHIN VIAL 1 GRAM ONE (01:38)
[2021-04-25] MEDS ORDERED: NS 100 ML IV + SPIKE MINIBAG* 100 ML IV ONE (01:39)
[2021-04-25] MEDS: NS 1,000 ML IV 1,000 ML IV SCH ×2 (01:52→15:54)
[2021-04-25] MEDS: MIRAPEX TAB 0.25 MG PO SCH ×2 (05:20→21:21)
[2021-04-25] MEDS: LANTUS SC SCH ×2 (05:21→21:28)
[2021-04-25 05:53] LABS: BASOPHILS % (AUTO) 0.6 % (0.2-1.0); EOSINOPHILS % (AUTO) 0.3 % (0.9-2.9); HEMATOCRIT 36.7 % (36.0-47.0); HEMOGLOBIN 12.2 g/dL (12.0-16.0); LYMPHOCYTES # (AUTO) 0.8 X10^3/uL (1.3-2.9); LYMPHOCYTES % (AUTO) 14.4 % (21.0-51.0); MEAN CORPUSCULAR HEMOGLOBIN 27.1 pg (27.0-34.0); MEAN CORPUSCULAR HGB CONC 33.3 g/dL (33.0-35.0); MEAN CORPUSCULAR VOLUME 81.3 fL (80.0-100.0); MEAN PLATELET VOLUME 9.2 fL (7.4-11.0); MONOCYTES # (AUTO) 0.1 x10^3/uL (0.3-0.8); MONOCYTES % (AUTO) 2.1 % (0.0-13.0); NEUTROPHILS # (AUTO) 4.3 x10^3/uL (2.2-4.8); NEUTROPHILS % (AUTO) 82.6 % (42.0-75.0); RED BLOOD COUNT 4.51 X10^6/uL (3.5-5.4); RED CELL DISTRIBUTION WIDTH 16.8 % (11.6-16.5); WHITE BLOOD COUNT 5.2 X10^3/uL (3.6-10.0)
[2021-04-25] MEDS ORDERED: DUONEB 0.5 MG/3 MG (3 mL) NEB SCH (06:00)
[2021-04-25] MEDS ORDERED: SOLU-Medrol 40 MG VIAL IVP SCH (06:00)
[2021-04-25 06:03] LABS: ALANINE AMINOTRANSFERASE 28 Units/L (12-78); ALKALINE PHOSPHATASE 100 Units/L (46-116); ASPARTATE AMINO TRANSFERASE 21 Units/L (15-37); BLOOD UREA NITROGEN 21 mg/dL (7-18); CALCIUM 8.8 mg/dL (8.5-10.1); CARBON DIOXIDE 27.1 mmol/L (21-32); CHLORIDE 101 mmol/L (98-107); COR CA(FOR HYPOALB) 9.6 mg/dL (8.5-10.1); COR NA(FOR HYPERGLY) 142 mmol/L (136-145); CREATININE 1.05 mg/dL (0.55-1.02); SODIUM 137 mmol/L (136-145); TOTAL PROTEIN 6.8 g/dL (6.4-8.2); eGFR NON BLACK RACES 55 (>60)
[2021-04-25] MEDS: NovoLIN R (or HumuLIN R) SC PRN ×3 (06:21→16:17)
[2021-04-25] MEDS ORDERED: ZITHROMAX TAB 250 MG PO ONE ×2 (08:33→11:28)
[2021-04-25] MEDS ORDERED: ESCITALOPRAM OXALATE 20 MG PO SCH (09:00)
[2021-04-25] MEDS ORDERED: LEXAPRO ONE (09:23)
[2021-04-25] MEDS: PULMICORT NEB TX 0.5 MG NEB SCH ×2 (09:25→20:48)
[2021-04-25] MEDS: PriLOSEC PO SCH (09:40)
[2021-04-25] MEDS: ULORIC PO SCH (09:50)
[2021-04-25] MEDS: ZOCOR TAB 20 MG PO SCH (09:50)
[2021-04-25] MEDS: ASPIRIN 81 MG CHEWTAB PO SCH (09:50)
[2021-04-25] MEDS: LOVENOX INJ 40 MG SYR SC SCH (09:50)
[2021-04-25] MEDS: MAG-OX TAB PO SCH ×2 (09:50→21:22)
[2021-04-25] MEDS: LEXAPRO PO SCH (09:50)
[2021-04-25] MEDS: LASIX PO SCH ×2 (09:50→21:21)
[2021-04-25] MEDS: ZETIA TAB 10 MG PO SCH (09:50)
[2021-04-25] MEDS: LOTENSIN TAB 10 MG PO SCH (09:50)
[2021-04-25] MEDS: SYNTHROID 125 mcg TAB PO SCH (09:50)
[2021-04-25] MEDS: MICRO K EXTEN CAP 10 MEQ PO SCH ×2 (09:50→21:22)
[2021-04-25] MEDS: GLUCOPHAGE XR 24-HR PO SCH ×2 (09:50→21:20)
[2021-04-25] MEDS: LIPASE PROTEASE AMYLASE PO SCH ×2 (11:34→21:23)
[2021-04-25] MEDS: [UNRECOGNIZED DRUG - OTHER] PO SCH ×2 (11:34→21:23)
[2021-04-25] MEDS ORDERED: DULCOLAX SUPPOSITORY 10 MG ONE (11:45)
--- NOTE | 2021-04-25 13:21 | DR.H&P ---
H&P History & Physical for Day of: H&P Date: 04/25/21 Chief Complaint Chief Complaint: worsening SOB, cough Allergies Allergies Allergy/AdvReac Type Severity Reaction Status Date / Time levofloxacin [From Levaquin] Allergy Verified 01/26/17 21:49 History of Present Illness History of Present Illness: Ms Riojas is a 70 y/o female with multiple comorbidities presents with worsening dyspnea and cough. Patient reports being sick for 3 days and got worse yesterday where she felt like she could not breathe. She was admitted in [place] last month for pneumonia. She uses O2 at home at night and sometimes during the day with exertion. She also uses BiPAP at night. She had been doing neb treatments but it was not helping. She reports dry cough. Denies fever or chills. Denies sick contact or known exposure. In the ER, CXR did not show any acute process, her covid test, flu and RSV were negative. Cardiac enzymes were negative. She was admitted for COPD exacerbation. She is currently on 2L NC. Labs/imaging reviewed Plan: Continue IV Rocephin, will add azithromycin. Increase Solumedrol. Patient continues to have diffuse rhonchi/wheezing. Continue duonebs and pulmicort. Continue anti-tussives. Resume home medications. Wean O2 as tolerated. Monitor AM labs/imaging. Past Medical History Past Medical History: Arthritis, Asthma, CHF, COPD, Diabetes, GERD, Gout and Hypertension Past Surgical History Surgical History: Cholecystectomy, Hysterectomy, Joint Replacement and Ortho Surgery Family History Family Medical History: Diabetes Mellitus, [place], Coronary Artery Disease and Hypertension Social History Does patient currently use any type of tobacco product: No Have you used tobacco products in the last 12 months: No Type of Tobacco Use: None How many years tobacco product used: 3 Does any household member use tobacco: No Alcohol Use: None Drug Use: None Prescription drug monitoring program results: PDMP reviewed and no concerns identified Medications Home Medications: levofloxacin [From Levaquin] Allergy (Verified 01/26/17 21:49) CONTINUE taking the following medications benazepril 5 mg PO DAILY 04/25/21 [History] empagliflozin [Jardiance] 25 mg PO DAILY 04/25/21 [History] ezetimibe 10 mg PO DAILY 04/25/21 [History] febuxostat 40 mg PO DAILY 04/25/21 [History] insulin glargine [Lantus Solostar U-100 Insulin] 48 unit SUBCUT HS 04/25/21 [History] insulin glargine [Lantus Solostar U-100 Insulin] 48 unit SUBCUT QHS 04/25/21 [History] levothyroxine 125 mcg PO DAILY 04/25/21 [History] zhmcke-ctrcbsgv-czpytdb [Creon] 1 cap PO BID 04/25/21 [History] metformin 1,000 mg PO BID 04/25/21 [History] pramipexole 0.25 mg PO QHS 04/25/21 [History] tiotropium bromide [Spiriva Respimat] 2 inh INHALATION DAILY 04/25/21 [History] Labs Result Diagrams: 04/25/21 05:22 04/25/21 05:22 Labs: Laboratory WBC 5.2 X10^3/uL (3.6-10.0) 04/25/21 05:22 RBC 4.51 X10^6/uL (3.5-5.4) 04/25/21 05:22 Hgb 12.2 g/dL (12.0-16.0) 04/25/21 05:22 Hct 36.7 % (36.0-47.0) 04/25/21 05:22 MCV 81.3 fL (80.0-100.0) 04/25/21 05:22 MCH 27.1 pg (27.0-34.0) 04/25/21 05:22 MCHC 33.3 g/dL (33.0-35.0) 04/25/21 05:22 RDW 16.8 % (11.6-16.5) H 04/25/21 05:22 Plt Count 156 X10^3/uL (150.0-450.0) 04/25/21 05:22 MPV 9.2 fL (7.4-11.0) 04/25/21 05:22 Neut % (Auto) 82.6 % (42.0-75.0) H 04/25/21 05:22 Lymph % (Auto) 14.4 % (21.0-51.0) L 04/25/21 05:22 [place] % (Auto) 2.1 % (0.0-13.0) 04/25/21 05:22 Eos % (Auto) 0.3 % (0.9-2.9) L 04/25/21 05:22 Baso % (Auto) 0.6 % (0.2-1.0) 04/25/21 05:22 Neut # (Auto) 4.3 x10^3/uL (2.2-4.8) 04/25/21 05:22 Lymph # (Auto) 0.8 X10^3/uL (1.3-2.9) L 04/25/21 05:22 [place] # (Auto) 0.1 x10^3/uL (0.3-0.8) L 04/25/21 05:22 Eos # (Auto) 0.0 x10^3/uL (0.0-0.2) 04/25/21 05:22 Baso # (Auto) 0.0 X10^3/uL (0.0-0.1) 04/25/21 05:22 Absolute Nucleated RBC 0.1 /100WBC 04/25/21 05:22 Sodium 137 mmol/L (136-145) 04/25/21 05:22 Corrected Sodium 142 mmol/L (136-145) 04/25/21 05:22 Potassium 3.7 mmol/L (3.5-5.1) 04/25/21 05:22 Chloride 101 mmol/L (98-107) 04/25/21 05:22 Carbon Dioxide 27.1 mmol/L (21-32) 04/25/21 05:22 BUN 21 mg/dL (7-18) H 04/25/21 05:22 Creatinine 1.05 mg/dL (0.55-1.02) H 04/25/21 05:22 Est GFR (MDRD) Af Amer > 60 (>60) 04/25/21 05:22 Est GFR (MDRD) Non-Af 55 (>60) L 04/25/21 05:22 Glucose 293 mg/dL (65-99) H 04/25/21 05:22 POC Glucose (mg/dL) 387 mg/dL (65-99) H 04/25/21 11:32 Calcium 8.8 mg/dL (8.5-10.1) 04/25/21 05:22 Corrected Calcium 9.6 mg/dL (8.5-10.1) 04/25/21 05:22 Total Bilirubin 0.30 mg/dL (0.2-1.0) 04/25/21 05:22 AST 21 Units/L (15-37) 04/25/21 05:22 ALT 28 Units/L (12-78) 04/25/21 05:22 Alkaline Phosphatase 100 Units/L (46-116) 04/25/21 05:22 Creatine Kinase 180 Units/L (26-192) 04/24/21 21:18 CK-MB (CK-2) 1.1 ng/mL (0-4.0) 04/24/21 21:18 CK/CKMB % Calc 0.6 % (<4) 04/24/21 21:18 Troponin I High Sens 11.4 ng/L (4.0-60.0) 04/24/21 21:18 B-Natriuretic Peptide 41.6 pg/mL (0-79) 04/24/21 21:18 Total Protein 6.8 g/dL (6.4-8.2) 04/25/21 05:22 Albumin 3.0 g/dL (3.4-5.0) L 04/25/21 05:22 Globulin 3.8 g/dL (2.5-4.5) 04/25/21 05:22 Albumin/Globulin Ratio 0.8 Ratio (1.1-2.1) L 04/25/21 05:22 SARS-CoV-2 (PCR) Negative (NEGATIVE) 04/24/21 21:20 Influenza Type A (PCR) Negative (NEGATIVE) 04/24/21 21:20 Influenza Type B (PCR) Negative (NEGATIVE) 04/24/21 21:20 RSV (PCR) Negative (NEGATIVE) 04/24/21 21:20 Review of Systems Constitutional: Weakness Eyes: No Symptoms Reported ENT: No Symptoms Reported Respiratory: Cough, Dry, Shortness of Breath, SOB with Excertion and Wheezing Cardiovascular: No Symptoms Reported Gastrointestinal: No Symptoms Reported Genitourinary: No Symptoms Reported Musculoskeletal: No Symptoms Reported Skin: No Symptoms Reported Neurological: No Symptoms Reported Physical Exam Vital Signs: Temperature 97.8 F Pulse Rate [Left Brachial] 98 Pulse Rate 72 Respiratory Rate 20 Blood Pressure [Right Arm] 114/56 Blood Pressure 141/65 O2 Sat by Pulse Oximetry 94 Oriented: Normal Eyes: Normal Ear: Normal Nose: Normal Throat: Dry Respiratory: Rhonchi Throughout and Wheezes Throughout Cardiovascular: Tachycardia Auscultation: Bowel Sounds: Normal Palpation: Normal Tenderness: Normal Skin: Decreased Turgur Musculoskeletal: Normal Psychiatric: Anxiety Mood Description: Calm Affect: Anxious Speech Pattern: Clear and Appropriate Assessment/Plan (1) COPD with acute exacerbation: Status: Acute (2) Hypothyroidism: Qualifiers: Hypothyroidism type: acquired Qualified Code(s): E03.9 - Hypothyr oidism, unspecified Status: Chronic (3) Hyperlipidemia: Qualifiers: Hyperlipidemia type: mixed hyperlipidemia Qualified Code(s): E78.2 - Mixed hyperlipidemia Status: Chronic (4) Depression: Qualifiers: Active/Remission status: remission status unspecified Depression Type: major depressive disorder Major depression recurrence: recurrent Qualified Code(s): F33.9 - Major depressive disorder, recurrent, unspecified Status: Chronic (5) Sleep apnea: Qualifiers: Sleep apnea type: unspecified type Qualified Code(s): G47.30 - Sleep apnea, unspecified Status: Chronic (6) Diabetes mellitus: Qualifiers: Diabetes mellitus complication status: with unspecified complications Diabetes mellitus termination clerk insulin use: with usp use Diabetes mellitus type: type 2 Qualified Code(s): E11.8 - Type 2 diabetes mellitus with unspecified complications; Z79.4 - assisted (current) use of insulin; Z79.4 - terminal worker (current) use of insulin; Z79.4 - terminal worker (current) use of insulin; Z79.4 - terminal worker (current) use of insulin Status: Chronic (7) Hypertension: Qualifiers: Hypertension type: essential hypertension Qualified Code(s): I10 - Essential (primary) hypertension Status: Chronic (8) CHF (congestive heart failure): Qualifiers: Congestive heart failure chronicity: acute on chronic Congestive heart failure type: unspecified congestive heart failure type Qualified Code(s): I50.9 - Heart failure, unspecified Status: Acute (9) History of TIA (transient ischemic attack): Status: Chronic (10) GERD (gastroesophageal reflux disease): Qualifiers: Esophagitis presence: esophagitis presence not specified Qualified Code(s): K21.9 - Gastro-esophageal reflux disease without esophagitis Status: Chronic Review H&P Reviewed: Yes Patient was examined?: Yes
[2021-04-25] MEDS ORDERED: TESSALON PERLES PO PRN (13:39)
[2021-04-25] MEDS: SOLU-Medrol 40 MG VIAL IVP SCH ×2 (15:00→21:24)
[2021-04-25] MEDS ORDERED: STERILE WATER IRRIGATION IR ONE (20:52)
[2021-04-25] MEDS: ROCEPHIN 1 GRAM IV PREMIX 1 G/50 ML IV.SOLN. IV SCH (21:57)
[2021-04-26] MEDS: DUONEB 0.5 MG/3 MG (3 mL) NEB SCH ×7 (00:53→17:06)
[2021-04-26] MEDS: NS 1,000 ML IV 1,000 ML IV SCH ×3 (02:15→16:45)
[2021-04-26] MEDS: SOLU-Medrol 40 MG VIAL IVP SCH ×3 (05:00→21:50)
[2021-04-26] MEDS: NovoLIN R (or HumuLIN R) SC PRN ×2 (05:57→11:33)
[2021-04-26 06:19] LABS: BASOPHILS % (AUTO) 0.1 % (0.2-1.0); HEMATOCRIT 36.9 % (36.0-47.0); HEMOGLOBIN 12.1 g/dL (12.0-16.0); LYMPHOCYTES % (AUTO) 12.1 % (21.0-51.0); MEAN CORPUSCULAR HGB CONC 32.7 g/dL (33.0-35.0); MEAN CORPUSCULAR VOLUME 82.7 fL (80.0-100.0); MEAN PLATELET VOLUME 9.4 fL (7.4-11.0); MONOCYTES # (AUTO) 0.3 x10^3/uL (0.3-0.8); MONOCYTES % (AUTO) 3.8 % (0.0-13.0); NEUTROPHILS # (AUTO) 7.2 x10^3/uL (2.2-4.8); RED BLOOD COUNT 4.47 X10^6/uL (3.5-5.4); RED CELL DISTRIBUTION WIDTH 16.7 % (11.6-16.5); WHITE BLOOD COUNT 8.6 X10^3/uL (3.6-10.0)
[2021-04-26 06:41] LABS: ALBUMIN 2.9 g/dL (3.4-5.0); CALCIUM 8.7 mg/dL (8.5-10.1); CARBON DIOXIDE 26.4 mmol/L (21-32); COR CA(FOR HYPOALB) 9.6 mg/dL (8.5-10.1); CREATININE 1.22 mg/dL (0.55-1.02); TOTAL PROTEIN 6.6 g/dL (6.4-8.2)
[2021-04-26] MEDS ORDERED: LEXAPRO ONE (07:58)
[2021-04-26] MEDS: PULMICORT NEB TX 0.5 MG NEB SCH ×2 (08:15→20:45)
[2021-04-26] MEDS: MAG-OX TAB PO SCH ×2 (08:30→21:52)
[2021-04-26] MEDS: PriLOSEC PO SCH (08:30)
[2021-04-26] MEDS: ZOCOR TAB 20 MG PO SCH (08:30)
[2021-04-26] MEDS: ZETIA TAB 10 MG PO SCH (08:30)
[2021-04-26] MEDS: SYNTHROID 125 mcg TAB PO SCH (08:30)
[2021-04-26] MEDS: ZITHROMAX TAB 250 MG PO SCH (08:30)
[2021-04-26] MEDS: ASPIRIN 81 MG CHEWTAB PO SCH (08:30)
[2021-04-26] MEDS: MICRO K EXTEN CAP 10 MEQ PO SCH ×2 (08:30→21:52)
[2021-04-26] MEDS: LASIX PO SCH ×2 (08:30→21:52)
[2021-04-26] MEDS: LEXAPRO PO SCH (08:30)
[2021-04-26] MEDS: LOTENSIN TAB 10 MG PO SCH (08:30)
[2021-04-26] MEDS: ULORIC PO SCH (08:30)
[2021-04-26] MEDS: LOVENOX INJ 40 MG SYR SC SCH (08:30)
[2021-04-26] MEDS: GLUCOPHAGE XR 24-HR PO SCH ×2 (08:30→21:50)
--- NOTE | 2021-04-26 10:41 | RAD ---
HISTORYCOUGH, HYPOXIA, FOLLOW UPSTUDYCHEST x-ray, 1 VIEWCOMPARISONX-ray 04/24/2021FINDINGSPacemaker leads are unchanged in position. The heart is likely normal in size. Probable COPD changes are present. There may be chronic interstitial lung disease changes and mild atelectasis but no acute infiltrate is seen. No pneumothorax or pleural effusion is seen.IMPRESSIONNo acute cardiopulmonary abnormality is seen.Electronically signed by: Barry Bautista (Apr 26, 2021 10:40:53)
[2021-04-26] MEDS: LIPASE PROTEASE AMYLASE PO SCH ×2 (11:30→22:00)
[2021-04-26] MEDS: [UNRECOGNIZED DRUG - OTHER] PO SCH ×2 (11:30→22:00)
--- NOTE | 2021-04-26 14:30 | PCM.PROG ---
Progress Note Progress Note for Day of Date of Exam: 04/26/21 Subjective Subjective: Patient seen at bedside, no events overnight. She feels slightly better but still very dyspneic on exertion. She has audible wheezing. She has some cough. She reports eating well. She remains on 2L NC. Labs reviewed Plan: Repeat CXR, follow up sputum Cx. Continue IV Rocephin and azithromycin. Continue solumedrol. Increase insulin to 50 units qHS due to hyperglycemia. Continue nebs, pulmicort and IS. Advised patient to use IS as much as she can. PT/OT as tolerated. Wean O2 as tolerated. Monitor AM labs. Past Medical Family Social History Past Med/Fam/Surg Hx: No changes since H&P Allergies: Allergies levofloxacin [From Levaquin] Allergy (Verified 01/26/17 21:49) Review of Systems ROS: No change since H&P Vital Signs and I&O's Vital Signs: Temperature 97.7 F Pulse Rate [Left Brachial] 86 Pulse Rate 79 Respiratory Rate 20 Blood Pressure [Right Arm] 131/62 Blood Pressure 141/65 O2 Sat by Pulse Oximetry 97 Intake and Output: Intake & Output 04/23/21 04/24/21 04/25/21 04/26/21 23:59 23:59 23:59 23:59 Intake Total 3002 / 3002 1220 / 1220 Balance 3002 / 3002 1220 / 1220 Physical Exam Oriented: Normal Eyes: Normal Ear: Normal Nose: Normal Throat: Normal Respiratory: Generalized, Wheezes and Rhonchi Cardiovascular: Normal Auscultation: Bowel Sounds: Normal Tenderness: Normal Skin: Decreased Turgur Musculoskeletal: Normal Psychiatric: Anxiety Mood Description: Calm Affect: Anxious Speech Pattern: Clear and Appropriate Laboratory and Diagnostics Result Diagrams: 04/26/21 05:28 04/26/21 05:28 Labs: 04/25/21 12:45 Sputum - Expectorated Sputum Sputum Culture - Preliminary 04/25/21 12:45 Sputum - Expectorated Sputum - Final 04/24/21 21:25 Blood Blood Culture - Preliminary 04/24/21 21:18 Blood Blood Culture - Preliminary Laboratory WBC 8.6 X10^3/uL (3.6-10.0) 04/26/21 05:28 RBC 4.47 X10^6/uL (3.5-5.4) 04/26/21 05:28 Hgb 12.1 g/dL (12.0-16.0) 04/26/21 05:28 Hct 36.9 % (36.0-47.0) 04/26/21 05:28 MCV 82.7 fL (80.0-100.0) 04/26/21 05:28 MCH 27.0 pg (27.0-34.0) 04/26/21 05:28 MCHC 32.7 g/dL (33.0-35.0) L 04/26/21 05:28 RDW 16.7 % (11.6-16.5) H 04/26/21 05:28 Plt Count 158 X10^3/uL (150.0-450.0) 04/26/21 05:28 MPV 9.4 fL (7.4-11.0) 04/26/21 05:28 Neut % (Auto) 84.0 % (42.0-75.0) H 04/26/21 05:28 Lymph % (Auto) 12.1 % (21.0-51.0) L 04/26/21 05:28 [place] % (Auto) 3.8 % (0.0-13.0) 04/26/21 05:28 Eos % (Auto) 0.0 % (0.9-2.9) L 04/26/21 05:28 Baso % (Auto) 0.1 % (0.2-1.0) L 04/26/21 05:28 Neut # (Auto) 7.2 x10^3/uL (2.2-4.8) H 04/26/21 05:28 Lymph # (Auto) 1.0 X10^3/uL (1.3-2.9) L 04/26/21 05:28 [place] # (Auto) 0.3 x10^3/uL (0.3-0.8) 04/26/21 05:28 Eos # (Auto) 0.0 x10^3/uL (0.0-0.2) 04/26/21 05:28 Baso # (Auto) 0.0 X10^3/uL (0.0-0.1) 04/26/21 05:28 Absolute Nucleated RBC 0.1 /100WBC 04/26/21 05:28 Sodium 140 mmol/L (136-145) 04/26/21 05:28 Corrected Sodium 146 mmol/L (136-145) H 04/26/21 05:28 Potassium 4.4 mmol/L (3.5-5.1) 04/26/21 05:28 Chloride 104 mmol/L (98-107) 04/26/21 05:28 Carbon Dioxide 26.4 mmol/L (21-32) 04/26/21 05:28 BUN 30 mg/dL (7-18) H 04/26/21 05:28 Creatinine 1.22 mg/dL (0.55-1.02) H 04/26/21 05:28 Est GFR (MDRD) Af Amer 56 (>60) L 04/26/21 05:28 Est GFR (MDRD) Non-Af 46 (>60) L 04/26/21 05:28 Glucose 356 mg/dL (65-99) H 04/26/21 05:28 POC Glucose (mg/dL) 348 mg/dL (65-99) H 04/26/21 11:19 Calcium 8.7 mg/dL (8.5-10.1) 04/26/21 05:28 Corrected Calcium 9.6 mg/dL (8.5-10.1) 04/26/21 05:28 Total Bilirubin 0.20 mg/dL (0.2-1.0) 04/26/21 05:28 AST 13 Units/L (15-37) L 04/26/21 05:28 ALT 23 Units/L (12-78) 04/26/21 05:28 Alkaline Phosphatase 94 Units/L (46-116) 04/26/21 05:28 Creatine Kinase 180 Units/L (26-192) 04/24/21 21:18 CK-MB (CK-2) 1.1 ng/mL (0-4.0) 04/24/21 21:18 CK/CKMB % Calc 0.6 % (<4) 04/24/21 21:18 Troponin I High Sens 11.4 ng/L (4.0-60.0) 04/24/21 21:18 B-Natriuretic Peptide 41.6 pg/mL (0-79) 04/24/21 21:18 Total Protein 6.6 g/dL (6.4-8.2) 04/26/21 05:28 Albumin 2.9 g/dL (3.4-5.0) L 04/26/21 05:28 Globulin 3.7 g/dL (2.5-4.5) 04/26/21 05:28 Albumin/Globulin Ratio 0.8 Ratio (1.1-2.1) L 04/26/21 05:28 SARS-CoV-2 (PCR) Negative (NEGATIVE) 04/24/21 21:20 Influenza Type A (PCR) Negative (NEGATIVE) 04/24/21 21:20 Influenza Type B (PCR) Negative (NEGATIVE) 04/24/21 21:20 RSV (PCR) Negative (NEGATIVE) 04/24/21 21:20 Plan (1) COPD with acute exacerbation: Status: Acute (2) Hypothyroidism: Status: Chronic Qualifiers: Hypothyroidism type: acquired Qualified Code(s): E03.9 - Hypothyroidism, unspecified (3) Hyperlipidemia: Status: Chronic Qualifiers: Hyperlipidemia type: mixed hyperlipidemia Qualified Code(s): E78.2 - Mixed hyperlipidemia (4) Depression: Status: Chronic Qualifiers: Active/Remission status: remission status unspecified Depression Type: major depressive disorder Major depression recurrence: recurrent Qualified Code(s): F33.9 - Major depressive disorder, recurrent, unspecified (5) Sleep apnea: Status: Chronic Qualifiers: Sleep apnea type: unspecified type Qualified Code(s): G47.30 - Sleep apnea, unspecified (6) Diabetes mellitus: Status: Chronic Qualifiers: Diabetes mellitus complication status: with unspecified complications Diabetes mellitus nursing home insulin use: with nursing home use Diabetes mellitus type: type 2 Qualified Code(s): E11.8 - Type 2 diabetes mellitus with unspecified complications; Z79.4 - senior care (current) use of insulin; Z79.4 - senior care (current) use of insulin; Z79.4 - rn long term care (current) use of insulin; Z79.4 - rn long term care (current) use of insulin (7) Hypertension: Status: Chronic Qualifiers: Hypertension type: essential hypertension Qualified Code(s): I10 - Essential (primary) hypertension (8) CHF (congestive heart failure): Status: Acute Qualifiers: Congestive heart failure chronicity: acute on chronic Congestive heart failure type: unspecified congestive heart failure type Qualified Code(s): I50.9 - Heart failure, unspecified (9) History of TIA (transient ischemic attack): Status: Chronic (10) GERD (gastroesophageal reflux disease): Status: Chronic Qualifiers: Esophagitis presence: esophagitis presence not specified Qualified Code(s): K21.9 - Gastro-esophageal reflux disease without esophagitis
[2021-04-26] MEDS ORDERED: ZOFRAN INJ 4 MG VIAL IVP PRN (20:23)
[2021-04-26] MEDS ORDERED: LANTUS SC SCH (21:00)
[2021-04-26] MEDS: MIRAPEX TAB 0.25 MG PO SCH (21:51)
[2021-04-26] MEDS: ROCEPHIN 1 GRAM IV PREMIX 1 G/50 ML IV.SOLN. IV SCH (21:51)
[2021-04-27] MEDS: DUONEB 0.5 MG/3 MG (3 mL) NEB SCH ×6 (00:20→21:36)
[2021-04-27] MEDS: NS 1,000 ML IV 1,000 ML IV SCH ×3 (05:08→20:57)
[2021-04-27] MEDS: NovoLIN R (or HumuLIN R) SC PRN ×3 (05:46→16:36)
[2021-04-27] MEDS: SOLU-Medrol 40 MG VIAL IVP SCH ×3 (05:49→21:00)
[2021-04-27 06:19] LABS: BASOPHILS % (AUTO) 0.1 % (0.2-1.0); HEMATOCRIT 34.7 % (36.0-47.0); HEMOGLOBIN 11.4 g/dL (12.0-16.0); LYMPHOCYTES # (AUTO) 0.9 X10^3/uL (1.3-2.9); MEAN CORPUSCULAR HEMOGLOBIN 26.9 pg (27.0-34.0); MEAN CORPUSCULAR HGB CONC 32.7 g/dL (33.0-35.0); MEAN CORPUSCULAR VOLUME 82.2 fL (80.0-100.0); MEAN PLATELET VOLUME 9.8 fL (7.4-11.0); MONOCYTES # (AUTO) 0.3 x10^3/uL (0.3-0.8); MONOCYTES % (AUTO) 2.7 % (0.0-13.0); NEUTROPHILS # (AUTO) 9.8 x10^3/uL (2.2-4.8); NEUTROPHILS % (AUTO) 89.2 % (42.0-75.0); RED BLOOD COUNT 4.22 X10^6/uL (3.5-5.4); RED CELL DISTRIBUTION WIDTH 16.7 % (11.6-16.5)
[2021-04-27 06:36] LABS: CARBON DIOXIDE 22.9 mmol/L (21-32); COR CA(FOR HYPOALB) 9.8 mg/dL (8.5-10.1); CREATININE 1.22 mg/dL (0.55-1.02); TOTAL PROTEIN 6.5 g/dL (6.4-8.2)
[2021-04-27] MEDS: PULMICORT NEB TX 0.5 MG NEB SCH ×2 (08:55→21:36)
[2021-04-27] MEDS ORDERED: DIFLUCAN PO ONE (09:13)
[2021-04-27] MEDS ORDERED: TYLENOL 325 MG TAB PO PRN (09:14)
[2021-04-27] MEDS: MUCOMYST 20% 200 MG/ML NEB SCH ×3 (10:09→21:36)
[2021-04-27] MEDS ORDERED: LEXAPRO ONE (10:25)
[2021-04-27] MEDS: ASPIRIN 81 MG CHEWTAB PO SCH (10:32)
[2021-04-27] MEDS: LEXAPRO PO SCH (10:33)
[2021-04-27] MEDS: GLUCOPHAGE XR 24-HR PO SCH ×2 (10:33→20:55)
[2021-04-27] MEDS: LIPASE PROTEASE AMYLASE PO SCH ×2 (10:33→21:03)
[2021-04-27] MEDS: [UNRECOGNIZED DRUG - OTHER] PO SCH ×2 (10:33→21:03)
[2021-04-27] MEDS: LOVENOX INJ 40 MG SYR SC SCH (10:34)
[2021-04-27] MEDS: MAG-OX TAB PO SCH ×2 (10:35→20:55)
[2021-04-27] MEDS: MICRO K EXTEN CAP 10 MEQ PO SCH ×2 (10:35→20:54)
[2021-04-27] MEDS: PriLOSEC PO SCH (10:36)
[2021-04-27] MEDS: SYNTHROID 125 mcg TAB PO SCH (10:36)
[2021-04-27] MEDS: ULORIC PO SCH (10:36)
[2021-04-27] MEDS: ZETIA TAB 10 MG PO SCH (10:36)
[2021-04-27] MEDS: LOTENSIN TAB 10 MG PO SCH (10:37)
[2021-04-27] MEDS: ZOCOR TAB 20 MG PO SCH (10:37)
[2021-04-27] MEDS: ZITHROMAX TAB 250 MG PO SCH (10:37)
[2021-04-27] MEDS: CHLORASEPTIC SPRAY MT PRN ×3 (10:39→16:00)
--- NOTE | 2021-04-27 14:16 | PCM.PROG ---
Progress Note Progress Note for Day of Date of Exam: 04/27/21 Subjective Subjective: Patient seen at bedside, no acute events overnight. She continues to have persistent dry cough. She states she feels congested but not able to cough anything up. She feels SOB with exertion and also has a sore throat. CXR yesterday did not show any acute infection or effusion. COPD changes were noted. She remains on 2L NC. Labs and imaging reviewed Sputum Cx: Klebsiella and yeast. Plan: Continue IV Rocephin and azithromycin. Start Diflucan x 1. Continue solumedrol. Will add mucomyst nebs, continue duonebs and pulmicort. Add Chloraseptic spray. Add smartvest. Will check d-dimer to rule out PE. Advised patient to use IS as much as she can. PT/OT as tolerated. Wean O2 as tolerated. Monitor AM labs. Past Medical Family Social History Past Med/Fam/Surg Hx: No changes since H&P Allergies: Allergies levofloxacin [From Levaquin] Allergy (Verified 01/26/17 21:49) Review of Systems ROS: No change since H&P Vital Signs and I&O's Vital Signs: Temperature 97.6 F Pulse Rate [Left Brachial] 99 Pulse Rate 88 Respiratory Rate 22 Blood Pressure [Right Arm] 153/74 Blood Pressure 141/65 O2 Sat by Pulse Oximetry 97 Intake and Output: Intake & Output 04/24/21 04/25/21 04/26/21 04/27/21 23:59 23:59 23:59 23:59 Intake Total 3002 / 3002 4552 / 4552 590 / 590 Balance 3002 / 3002 4552 / 4552 590 / 590 Physical Exam Oriented: Normal Eyes: Normal Ear: Normal Nose: Normal Throat: Normal Respiratory: Generalized, Wheezes and Rhonchi Cardiovascular: Normal Auscultation: Bowel Sounds: Normal Tenderness: Normal Skin: Decreased Turgur Musculoskeletal: Normal Psychiatric: Anxiety Mood Description: Anxious Affect: Anxious Speech Pattern: Clear and Appropriate Laboratory and Diagnostics Result Diagrams: 04/27/21 05:23 04/27/21 05:23 Labs: 04/25/21 12:45 Sputum - Expectorated Sputum Sputum Culture - Preliminary Klebsiella Pneumoniae 04/25/21 12:45 Sputum - Expectorated Sputum - Final 04/24/21 21:25 Blood Blood Culture - Preliminary 04/24/21 21:18 Blood Blood Culture - Preliminary Laboratory WBC 11.0 X10^3/uL (3.6-10.0) H 04/27/21 05:23 RBC 4.22 X10^6/uL (3.5-5.4) 04/27/21 05:23 Hgb 11.4 g/dL (12.0-16.0) L 04/27/21 05:23 Hct 34.7 % (36.0-47.0) L 04/27/21 05:23 MCV 82.2 fL (80.0-100.0) 04/27/21 05:23 MCH 26.9 pg (27.0-34.0) L 04/27/21 05:23 MCHC 32.7 g/dL (33.0-35.0) L 04/27/21 05:23 RDW 16.7 % (11.6-16.5) H 04/27/21 05:23 Plt Count 171 X10^3/uL (150.0-450.0) 04/27/21 05:23 MPV 9.8 fL (7.4-11.0) 04/27/21 05:23 Neut % (Auto) 89.2 % (42.0-75.0) H 04/27/21 05:23 Lymph % (Auto) 8.0 % (21.0-51.0) L 04/27/21 05:23 [place] % (Auto) 2.7 % (0.0-13.0) 04/27/21 05:23 Eos % (Auto) 0.0 % (0.9-2.9) L 04/27/21 05:23 Baso % (Auto) 0.1 % (0.2-1.0) L 04/27/21 05:23 Neut # (Auto) 9.8 x10^3/uL (2.2-4.8) H 04/27/21 05:23 Lymph # (Auto) 0.9 X10^3/uL (1.3-2.9) L 04/27/21 05:23 [place] # (Auto) 0.3 x10^3/uL (0.3-0.8) 04/27/21 05:23 Eos # (Auto) 0.0 x10^3/uL (0.0-0.2) 04/27/21 05:23 Baso # (Auto) 0.0 X10^3/uL (0.0-0.1) 04/27/21 05:23 Absolute Nucleated RBC 0.1 /100WBC 04/27/21 05:23 Sodium 138 mmol/L (136-145) 04/27/21 05:23 Corrected Sodium 143 mmol/L (136-145) 04/27/21 05:23 Potassium 4.2 mmol/L (3.5-5.1) 04/27/21 05:23 Chloride 103 mmol/L (98-107) 04/27/21 05:23 Carbon Dioxide 22.9 mmol/L (21-32) 04/27/21 05:23 BUN 29 mg/dL (7-18) H 04/27/21 05:23 Creatinine 1.22 mg/dL (0.55-1.02) H 04/27/21 05:23 Est GFR (MDRD) Af Amer 56 (>60) L 04/27/21 05:23 Est GFR (MDRD) Non-Af 46 (>60) L 04/27/21 05:23 Glucose 327 mg/dL (65-99) H 04/27/21 05:23 POC Glucose (mg/dL) 260 mg/dL (65-99) H 04/27/21 11:33 Calcium 9.0 mg/dL (8.5-10.1) 04/27/21 05:23 Corrected Calcium 9.8 mg/dL (8.5-10.1) 04/27/21 05:23 Total Bilirubin 0.10 mg/dL (0.2-1.0) L 04/27/21 05:23 AST 13 Units/L (15-37) L 04/27/21 05:23 ALT 17 Units/L (12-78) 04/27/21 05:23 Alkaline Phosphatase 88 Units/L (46-116) 04/27/21 05:23 Creatine Kinase 180 Units/L (26-192) 04/24/21 21:18 CK-MB (CK-2) 1.1 ng/mL (0-4.0) 04/24/21 21:18 CK/CKMB % Calc 0.6 % (<4) 04/24/21 21:18 Troponin I High Sens 11.4 ng/L (4.0-60.0) 04/24/21 21:18 B-Natriuretic Peptide 41.6 pg/mL (0-79) 04/24/21 21:18 Total Protein 6.5 g/dL (6.4-8.2) 04/27/21 05:23 Albumin 3.0 g/dL (3.4-5.0) L 04/27/21 05:23 Globulin 3.5 g/dL (2.5-4.5) 04/27/21 05:23 Albumin/Globulin Ratio 0.9 Ratio (1.1-2.1) L 04/27/21 05:23 SARS-CoV-2 (PCR) Negative (NEGATIVE) 04/24/21 21:20 Influenza Type A (PCR) Negative (NEGATIVE) 04/24/21 21:20 Influenza Type B (PCR) Negative (NEGATIVE) 04/24/21 21:20 RSV (PCR) Negative (NEGATIVE) 04/24/21 21:20 Plan (1) COPD with acute exacerbation: Status: Acute (2) Hypothyroidism: Status: Chronic Qualifiers: Hypothyroidism type: acquired Qualified Code(s): E03.9 - Hypothyroidism, unspecified (3) Hyperlipidemia: Status: Chronic Qualifiers: Hyperlipidemia type: mixed hyperlipidemia Qualified Code(s): E78.2 - Mixed hyperlipidemia (4) Depression: Status: Chronic Qualifiers: Active/Remission status: remission status unspecified Depression Type: major depressive disorder Major depression recurrence: recurrent Qualified Code(s): F33.9 - Major depressive disorder, recurrent, unspecified (5) Sleep apnea: Status: Chronic Qualifiers: Sleep apnea type: unspecified type Qualified Code(s): G47.30 - Sleep apnea, unspecified (6) Diabetes mellitus: Status: Chronic Qualifiers: Diabetes mellitus complication status: with unspecified complications Diabetes mellitus watermaster insulin use: with watermaster use Diabetes mellitus type: type 2 Qualified Code(s): E11.8 - Type 2 diabetes mellitus with unspecified complications; Z79.4 - intermediate (current) use of insulin; Z79.4 - intermediate (current) use of insulin; Z79.4 - intermediate (current) use of insulin; Z79.4 - termite control service representative (current) use of insulin (7) Hypertension: Status: Chronic Qualifiers: Hypertension type: essential hypertension Qualified Code(s): I10 - Essential (primary) hypertension (8) CHF (congestive heart failure): Status: Acute Qualifiers: Congestive heart failure chronicity: acute on chronic Congestive heart failure type: unspecified congestive heart failure type Qualified Code(s): I50.9 - Heart failure, unspecified (9) History of TIA (transient ischemic attack): Status: Chronic (10) GERD (gastroesophageal reflux disease): Status: Chronic Qualifiers: Esophagitis presence: esophagitis presence not specified Qualified Co de(s): K21.9 - Gastro-esophageal reflux disease without esophagitis
[2021-04-27] MEDS: MIRAPEX TAB 0.25 MG PO SCH (20:54)
[2021-04-27] MEDS: ROCEPHIN 1 GRAM IV PREMIX 1 G/50 ML IV.SOLN. IV SCH (20:55)
[2021-04-27] MEDS: LANTUS SC SCH (22:13)
[2021-04-28] MEDS: DUONEB 0.5 MG/3 MG (3 mL) NEB SCH ×5 (00:10→17:15)
[2021-04-28] MEDS: SOLU-Medrol 40 MG VIAL IVP SCH ×2 (05:46→14:30)
[2021-04-28] MEDS: NS 1,000 ML IV 1,000 ML IV SCH (05:58)
[2021-04-28] MEDS: NovoLIN R (or HumuLIN R) SC PRN ×3 (05:59→17:22)
[2021-04-28] MEDS: MUCOMYST 20% 200 MG/ML NEB SCH ×2 (06:00→13:10)
[2021-04-28 06:25] LABS: CARBON DIOXIDE 25.1 mmol/L (21-32); CREATININE 1.23 mg/dL (0.55-1.02)
[2021-04-28 06:39] LABS: BASOPHILS % (AUTO) 0.2 % (0.2-1.0); HEMATOCRIT 36.6 % (36.0-47.0); HEMOGLOBIN 11.8 g/dL (12.0-16.0); LYMPHOCYTES # (AUTO) 1.1 X10^3/uL (1.3-2.9); MEAN CORPUSCULAR HEMOGLOBIN 26.6 pg (27.0-34.0); MEAN CORPUSCULAR HGB CONC 32.2 g/dL (33.0-35.0); MEAN CORPUSCULAR VOLUME 82.5 fL (80.0-100.0); MEAN PLATELET VOLUME 9.5 fL (7.4-11.0); MONOCYTES # (AUTO) 0.3 x10^3/uL (0.3-0.8); MONOCYTES % (AUTO) 2.3 % (0.0-13.0); NEUTROPHILS # (AUTO) 9.7 x10^3/uL (2.2-4.8); NEUTROPHILS % (AUTO) 87.5 % (42.0-75.0); RED BLOOD COUNT 4.43 X10^6/uL (3.5-5.4); RED CELL DISTRIBUTION WIDTH 16.6 % (11.6-16.5)
[2021-04-28] MEDS: PULMICORT NEB TX 0.5 MG NEB SCH (08:32)
[2021-04-28] MEDS ORDERED: LEXAPRO ONE (09:26)
[2021-04-28] MEDS: ZETIA TAB 10 MG PO SCH (09:33)
[2021-04-28] MEDS: LOVENOX INJ 40 MG SYR SC SCH (09:34)
[2021-04-28] MEDS: ASPIRIN 81 MG CHEWTAB PO SCH (09:36)
[2021-04-28] MEDS: MICRO K EXTEN CAP 10 MEQ PO SCH (09:36)
[2021-04-28] MEDS: GLUCOPHAGE XR 24-HR PO SCH (09:36)
[2021-04-28] MEDS: LEXAPRO PO SCH (09:36)
[2021-04-28] MEDS: SYNTHROID 125 mcg TAB PO SCH (09:36)
[2021-04-28] MEDS: ZITHROMAX TAB 250 MG PO SCH (09:37)
[2021-04-28] MEDS: [UNRECOGNIZED DRUG - OTHER] PO SCH (09:37)
[2021-04-28] MEDS: LIPASE PROTEASE AMYLASE PO SCH (09:37)
[2021-04-28] MEDS: ZOCOR TAB 20 MG PO SCH (09:37)
[2021-04-28] MEDS: LOTENSIN TAB 10 MG PO SCH (09:37)
[2021-04-28] MEDS: PriLOSEC PO SCH (09:37)
[2021-04-28] MEDS: MAG-OX TAB PO SCH (09:38)
[2021-04-28] MEDS: ULORIC PO SCH (09:38)
--- NOTE | 2021-04-28 11:02 | PCM.PROG ---
Progress Note Progress Note for Day of Date of Exam: 04/28/21 Subjective Subjective: Patient seen at bedside, no acute events overnight. She feels slightly better today. She states the smart vest is helping and she has been able to cough up a little bit. She remains on 2L NC. Lung exam with less wheezing and rhonchi compared to yesterday. D-dimer negative. Labs and imaging reviewed Sputum Cx: Klebsiella and yeast. Plan: Continue IV Rocephin and azithromycin. Continue solumedrol. Continue mucomyst, duonebs and pulmicort. Continue smartvest. Will check with CM if patient qualifies for home smart vest. Advised patient to use IS as much as she can. PT/OT as tolerated. Wean O2 as tolerated. Monitor AM labs. Possible discharge in the morning. Past Medical Family Social History Past Med/Fam/Surg Hx: No changes since H&P Allergies: Allergies levofloxacin [From Levaquin] Allergy (Verified 01/26/17 21:49) Review of Systems ROS: No change since H&P Vital Signs and I&O's Vital Signs: Temperature 98.2 F Pulse Rate [Left Brachial] 96 Pulse Rate 71 Respiratory Rate 20 Blood Pressure [Right Arm] 143/67 Blood Pressure 141/65 O2 Sat by Pulse Oximetry 98 Intake and Output: Intake & Output 04/25/21 04/26/21 04/27/21 04/28/21 23:59 23:59 23:59 23:59 Intake Total 3002 / 3002 4552 / 4552 3208 / 3208 453 / 453 Output Total / 0 / 0 Balance 3002 / 3002 4552 / 4552 3207 / 3207 453 / 453 Physical Exam Oriented: Normal Eyes: Normal Ear: Normal Nose: Normal Throat: Normal Respiratory: Generalized, Wheezes (improved ) and Rhonchi Cardiovascular: Normal Auscultation: Bowel Sounds: Normal Tenderness: Normal Skin: Decreased Turgur Musculoskeletal: Normal Psychiatric: Anxiety Mood Description: Anxious Affect: Anxious Speech Pattern: Clear and Appropriate Laboratory and Diagnostics Result Diagrams: 04/28/21 06:10 04/28/21 06:10 Labs: 04/25/21 12:45 Sputum - Expectorated Sputum Sputum Culture - Preliminary Klebsiella Pneumoniae 04/25/21 12:45 Sputum - Expectorated Sputum - Final 04/24/21 21:25 Blood Blood Culture - Preliminary 04/24/21 21:18 Blood Blood Culture - Preliminary Laboratory WBC 11.0 X10^3/uL (3.6-10.0) H 04/28/21 06:10 RBC 4.43 X10^6/uL (3.5-5.4) 04/28/21 06:10 Hgb 11.8 g/dL (12.0-16.0) L 04/28/21 06:10 Hct 36.6 % (36.0-47.0) 04/28/21 06:10 MCV 82.5 fL (80.0-100.0) 04/28/21 06:10 MCH 26.6 pg (27.0-34.0) L 04/28/21 06:10 MCHC 32.2 g/dL (33.0-35.0) L 04/28/21 06:10 RDW 16.6 % (11.6-16.5) H 04/28/21 06:10 Plt Count 168 X10^3/uL (150.0-450.0) 04/28/21 06:10 MPV 9.5 fL (7.4-11.0) 04/28/21 06:10 Neut % (Auto) 87.5 % (42.0-75.0) H 04/28/21 06:10 Lymph % (Auto) 10.0 % (21.0-51.0) L 04/28/21 06:10 [place] % (Auto) 2.3 % (0.0-13.0) 04/28/21 06:10 Eos % (Auto) 0.0 % (0.9-2.9) L 04/28/21 06:10 Baso % (Auto) 0.2 % (0.2-1.0) 04/28/21 06:10 Neut # (Auto) 9.7 x10^3/uL (2.2-4.8) H 04/28/21 06:10 Lymph # (Auto) 1.1 X10^3/uL (1.3-2.9) L 04/28/21 06:10 [place] # (Auto) 0.3 x10^3/uL (0.3-0.8) 04/28/21 06:10 Eos # (Auto) 0.0 x10^3/uL (0.0-0.2) 04/28/21 06:10 Baso # (Auto) 0.0 X10^3/uL (0.0-0.1) 04/28/21 06:10 Absolute Nucleated RBC 0.1 /100WBC 04/28/21 06:10 D-Dimer 0.50 ug/ml (0.0-0.57) 04/27/21 14:14 Sodium 140 mmol/L (136-145) 04/28/21 06:10 Corrected Sodium 143 mmol/L (136-145) 04/28/21 06:10 Potassium 4.4 mmol/L (3.5-5.1) 04/28/21 06:10 Chloride 106 mmol/L (98-107) 04/28/21 06:10 Carbon Dioxide 25.1 mmol/L (21-32) 04/28/21 06:10 BUN 31 mg/dL (7-18) H 04/28/21 06:10 Creatinine 1.23 mg/dL (0.55-1.02) H 04/28/21 06:10 Est GFR (MDRD) Af Amer 55 (>60) L 04/28/21 06:10 Est GFR (MDRD) Non-Af 46 (>60) L 04/28/21 06:10 Glucose 245 mg/dL (65-99) H 04/28/21 06:10 POC Glucose (mg/dL) 239 mg/dL (65-99) H 04/28/21 05:49 Calcium 9.0 mg/dL (8.5-10.1) 04/28/21 06:10 Corrected Calcium 9.8 mg/dL (8.5-10.1) 04/27/21 05:23 Total Bilirubin 0.10 mg/dL (0.2-1.0) L 04/27/21 05:23 AST 13 Units/L (15-37) L 04/27/21 05:23 ALT 17 Units/L (12-78) 04/27/21 05:23 Alkaline Phosphatase 88 Units/L (46-116) 04/27/21 05:23 Creatine Kinase 180 Units/L (26-192) 04/24/21 21:18 CK-MB (CK-2) 1.1 ng/mL (0-4.0) 04/24/21 21:18 CK/CKMB % Calc 0.6 % (<4) 04/24/21 21:18 Troponin I High Sens 11.4 ng/L (4.0-60.0) 04/24/21 21:18 B-Natriuretic Peptide 41.6 pg/mL (0-79) 04/24/21 21:18 Total Protein 6.5 g/dL (6.4-8.2) 04/27/21 05:23 Albumin 3.0 g/dL (3.4-5.0) L 04/27/21 05:23 Globulin 3.5 g/dL (2.5-4.5) 04/27/21 05:23 Albumin/Globulin Ratio 0.9 Ratio (1.1-2.1) L 04/27/21 05:23 SARS-CoV-2 (PCR) Negative (NEGATIVE) 04/24/21 21:20 Influenza Type A (PCR) Negative (NEGATIVE) 04/24/21 21:20 Influenza Type B (PCR) Negative (NEGATIVE) 04/24/21 21:20 RSV (PCR) Negative (NEGATIVE) 04/24/21 21:20 Plan (1) Klebsiella pneumonia: Status: Acute Qualifiers: Laterality: unspecified laterality Lung location: unspecified part of lung Qualified Code(s): J15.0 - Pneumonia due to Klebsiella pneumoniae (2) COPD with acute exacerbation: Status: Acute (3) Hypothyroidism: Status: Chronic Qualifiers: Hypothyroidism type: acquired Qualified Code(s): E03.9 - Hypothyroidism, unspecified (4) Hyperlipidemia: Status: Chronic Qualifiers: Hyperlipidemia type: mixed hyperlipidemia Qualified Code(s): E78.2 - Mixed hyperlipidemia (5) Depression: Status: Chronic Qualifiers: Active/Remission status: remission status unspecified Depression Type: major depressive disorder Major depression recurrence: recurrent Qualified Code(s): F33.9 - Major depressive disorder, recurrent, unspecified (6) Sleep apnea: Status: Chronic Qualifiers: Sleep apnea type: unspecified type Qualified Code(s): G47.30 - Sleep apnea, unspecified (7) Diabetes mellitus: Status: Chronic Qualifiers: Diabetes mellitus complication status: with unspecified complications Diabetes mellitus snf insulin use: with skilled trades teacher use Diabetes mellitus type: type 2 Qualified Code(s): E11.8 - Type 2 diabetes mellitus with unspecified complications; Z79.4 - penitentiary (current) use of insulin; Z79.4 - penitentiary (current) use of insulin; Z79.4 - geothermal heat pump machinist (current) use of insulin; Z79.4 - geothermal heat pump machinist (current) use of insulin (8) Hypertension: Status: Chronic Qualifiers: Hypertension type: essential hypertension Qualified Code(s): I10 - Ess ential (primary) hypertension (9) CHF (congestive heart failure): Status: Acute Qualifiers: Congestive heart failure chronicity: acute on chronic Congestive heart failure type: unspecified congestive heart failure type Qualified Code(s): I50.9 - Heart failure, unspecified (10) History of TIA (transient ischemic attack): Status: Chronic (11) GERD (gastroesophageal reflux disease): Status: Chronic Qualifiers: Esophagitis presence: esophagitis presence not specified Qualified Code(s): K21.9 - Gastro-esophageal reflux disease without esophagitis
[2021-04-28] MEDS ORDERED: MUCOMYST (RESPIRATORY USE ONLY) IN ONE (20:50)
[2021-04-28] MEDS ORDERED: DUONEB 0.5 MG/3 MG (3 mL) NEB ONE (20:50)
[2021-04-28] MEDS ORDERED: PULMICORT NEB TX 0.5 MG NEB ONE (20:50)
[2021-04-28] MEDS ORDERED: GLUCOPHAGE XR 24-HR PO ONE (21:00)
[2021-04-28] MEDS ORDERED: MAG-OX TAB PO ONE (21:00)
[2021-04-28] MEDS ORDERED: MIRAPEX TAB 0.25 MG PO ONE (21:00)
[2021-04-28] MEDS ORDERED: MICRO K EXTEN CAP 10 MEQ PO ONE (21:00)
[2021-04-28] MEDS ORDERED: LANTUS SC ONE (21:00)
[2021-04-28] MEDS ORDERED: NovoLIN R (or HumuLIN R) SUBCUT ONE (21:00)
[2021-04-29] MEDS ORDERED: SOLU-Medrol 40 MG VIAL IVP ONE (06:00)
[2021-04-29] MEDS ORDERED: PULMICORT NEB TX 0.5 MG NEB ONE (08:30)
[2021-04-29] MEDS ORDERED: DUONEB 0.5 MG/3 MG (3 mL) NEB ONE ×2 (08:30→12:40)
[2021-04-29] MEDS ORDERED: LOVENOX INJ 40 MG SYR SC ONE (09:00)
[2021-04-29] MEDS ORDERED: ZETIA TAB 10 MG PO ONE (09:00)
[2021-04-29] MEDS ORDERED: MAG-OX TAB PO ONE (09:00)
[2021-04-29] MEDS ORDERED: GLUCOPHAGE XR 24-HR PO ONE (09:00)
[2021-04-29] MEDS ORDERED: LOTENSIN TAB 10 MG PO ONE (09:00)
[2021-04-29] MEDS ORDERED: ASPIRIN 81 MG CHEWTAB PO ONE (09:00)
[2021-04-29] MEDS ORDERED: SYNTHROID 125 mcg TAB PO ONE (09:00)
[2021-04-29] MEDS ORDERED: ULORIC PO ONE (09:00)
[2021-04-29] MEDS ORDERED: PriLOSEC PO ONE (09:00)
[2021-04-29] MEDS ORDERED: LEXAPRO PO ONE (09:00)
[2021-04-29] MEDS ORDERED: ZITHROMAX TAB 250 MG PO ONE (09:00)
[2021-04-29] MEDS ORDERED: MICRO K EXTEN CAP 10 MEQ PO ONE (09:00)
[2021-04-29] MEDS ORDERED: ZOCOR TAB 20 MG PO ONE (09:00)
[2021-04-29 13:48] LABS: BLOOD UREA NITROGEN 30 mg/dL (7-18); CALCIUM 9.2 mg/dL (8.5-10.1); CHLORIDE 108 mmol/L (98-107); COR NA(FOR HYPERGLY) 142 mmol/L (136-145); CREATININE 0.96 mg/dL (0.55-1.02); SODIUM 141 mmol/L (136-145); eGFR NON BLACK RACES > 60 (>60)
[2021-04-29 13:54] LABS: BASOPHILS % (AUTO) 0.1 % (0.2-1.0); HEMATOCRIT 34.8 % (36.0-47.0); HEMOGLOBIN 11.6 g/dL (12.0-16.0); LYMPHOCYTES # (AUTO) 1.2 X10^3/uL (1.3-2.9); LYMPHOCYTES % (AUTO) 14.1 % (21.0-51.0); MEAN CORPUSCULAR HEMOGLOBIN 27.2 pg (27.0-34.0); MEAN CORPUSCULAR HGB CONC 33.2 g/dL (33.0-35.0); MEAN CORPUSCULAR VOLUME 81.9 fL (80.0-100.0); MEAN PLATELET VOLUME 9.8 fL (7.4-11.0); MONOCYTES # (AUTO) 0.3 x10^3/uL (0.3-0.8); MONOCYTES % (AUTO) 3.4 % (0.0-13.0); NEUTROPHILS # (AUTO) 7.3 x10^3/uL (2.2-4.8); NEUTROPHILS % (AUTO) 82.4 % (42.0-75.0); RED BLOOD COUNT 4.25 X10^6/uL (3.5-5.4); RED CELL DISTRIBUTION WIDTH 16.8 % (11.6-16.5); WHITE BLOOD COUNT 8.8 X10^3/uL (3.6-10.0)
[2021-04-29] MEDS: SOLU-Medrol 40 MG VIAL IVP SCH ×2 (14:00→22:03)
[2021-04-29] MEDS: GLUCOPHAGE XR 24-HR PO SCH ×2 (15:17→20:51)
[2021-04-29] MEDS: LIPASE PROTEASE AMYLASE PO SCH ×2 (15:17→20:49)
[2021-04-29] MEDS: [UNRECOGNIZED DRUG - OTHER] PO SCH ×2 (15:17→20:49)
[2021-04-29] MEDS: MAG-OX TAB PO SCH ×2 (15:18→20:51)
[2021-04-29] MEDS: MICRO K EXTEN CAP 10 MEQ PO SCH ×2 (15:18→20:51)
[2021-04-29] MEDS: ASPIRIN 81 MG CHEWTAB PO SCH (15:19)
[2021-04-29] MEDS: LOTENSIN TAB 10 MG PO SCH (15:20)
[2021-04-29] MEDS: LEXAPRO PO SCH (15:20)
[2021-04-29] MEDS: PriLOSEC PO SCH (15:21)
[2021-04-29] MEDS: ZETIA TAB 10 MG PO SCH (15:21)
[2021-04-29] MEDS: SYNTHROID 125 mcg TAB PO SCH (15:21)
[2021-04-29] MEDS: ULORIC PO SCH (15:21)
[2021-04-29] MEDS: LOVENOX INJ 40 MG SYR SC SCH (15:21)
[2021-04-29] MEDS: ZITHROMAX TAB 250 MG PO SCH (15:22)
[2021-04-29] MEDS: ZOCOR TAB 20 MG PO SCH (15:22)
[2021-04-29] MEDS: NovoLIN R (or HumuLIN R) SC PRN (16:54)
--- NOTE | 2021-04-29 19:20 | PCM.PROG ---
Progress Note Progress Note for Day of Date of Exam: 04/29/21 Subjective Subjective: Patient seen at bedside, no acute events overnight. She feels slightly better today. She states the smart vest is helping and she has been able to cough up a little bit. She remains on 2L NC. Lung exam with wheezing and rhonchi. She does report she is breathing better today. D-dimer negative. Labs and imaging reviewed Sputum Cx: Klebsiella and yeast. Plan: Continue IV Rocephin and azithromycin. Continue solumedrol. Continue mucomyst, duonebs and pulmicort. Continue smartvest. Will check with CM if patient qualifies for home smart vest. Advised patient to use IS as much as she can. PT/OT as tolerated. Wean O2 as tolerated. Monitor AM labs. Possible discharge in the morning. Past Medical Family Social History Past Med/Fam/Surg Hx: No changes since H&P Allergies: Allergies levofloxacin [From Levaquin] Allergy (Verified 01/26/17 21:49) Review of Systems ROS: No change since H&P Vital Signs and I&O's Vital Signs: Temperature 98.1 F Pulse Rate [Left Brachial] 71 Pulse Rate 71 Respiratory Rate 20 Blood Pressure [Right Arm] 139/66 Blood Pressure 141/65 O2 Sat by Pulse Oximetry 97 Intake and Output: Intake & Output 04/27/21 04/28/21 04/29/21 04/30/21 11:59 11:59 11:59 11:59 Intake Total 3922 / 3922 3071 / 3071 1740 / 1740 1030 / 1030 Output Total Balance 3922 / 3922 3070 / 3070 1740 / 1740 1030 / 1030 Physical Exam Oriented: Normal Eyes: Normal Ear: Normal Nose: Normal Throat: Normal Respiratory: Generalized, Wheezes (improved ) and Rhonchi Cardiovascular: Normal Auscultation: Bowel Sounds: Normal Tenderness: Normal Skin: Decreased Turgur Musculoskeletal: Normal Psychiatric: Anxiety Mood Description: Anxious Affect: Anxious Speech Pattern: Clear and Appropriate Laboratory and Diagnostics Result Diagrams: 04/29/21 05:00 04/29/21 06:15 Labs: 04/25/21 12:45 Sputum - Expectorated Sputum Sputum Culture - Preliminary Klebsiella Pneumoniae 04/25/21 12:45 Sputum - Expectorated Sputum - Final 04/24/21 21:25 Blood Blood Culture - Preliminary 04/24/21 21:18 Blood Blood Culture - Preliminary Laboratory WBC 8.8 X10^3/uL (3.6-10.0) 04/29/21 05:00 RBC 4.25 X10^6/uL (3.5-5.4) 04/29/21 05:00 Hgb 11.6 g/dL (12.0-16.0) L 04/29/21 05:00 Hct 34.8 % (36.0-47.0) L 04/29/21 05:00 MCV 81.9 fL (80.0-100.0) 04/29/21 05:00 MCH 27.2 pg (27.0-34.0) 04/29/21 05:00 MCHC 33.2 g/dL (33.0-35.0) 04/29/21 05:00 RDW 16.8 % (11.6-16.5) H 04/29/21 05:00 Plt Count 163 X10^3/uL (150.0-450.0) 04/29/21 05:00 MPV 9.8 fL (7.4-11.0) 04/29/21 05:00 Neut % (Auto) 82.4 % (42.0-75.0) H 04/29/21 05:00 Lymph % (Auto) 14.1 % (21.0-51.0) L 04/29/21 05:00 [place] % (Auto) 3.4 % (0.0-13.0) 04/29/21 05:00 Eos % (Auto) 0.0 % (0.9-2.9) L 04/29/21 05:00 Baso % (Auto) 0.1 % (0.2-1.0) L 04/29/21 05:00 Neut # (Auto) 7.3 x10^3/uL (2.2-4.8) H 04/29/21 05:00 Lymph # (Auto) 1.2 X10^3/uL (1.3-2.9) L 04/29/21 05:00 [place] # (Auto) 0.3 x10^3/uL (0.3-0.8) 04/29/21 05:00 Eos # (Auto) 0.0 x10^3/uL (0.0-0.2) 04/29/21 05:00 Baso # (Auto) 0.0 X10^3/uL (0.0-0.1) 04/29/21 05:00 Absolute Nucleated RBC 0.1 /100WBC 04/29/21 05:00 D-Dimer 0.50 ug/ml (0.0-0.57) 04/27/21 14:14 Sodium 141 mmol/L (136-145) 04/29/21 06:15 Corrected Sodium 142 mmol/L (136-145) 04/29/21 06:15 Potassium 4.3 mmol/L (3.5-5.1) 04/29/21 06:15 Chloride 108 mmol/L (98-107) H 04/29/21 06:15 Carbon Dioxide 25.0 mmol/L (21-32) 04/29/21 06:15 BUN 30 mg/dL (7-18) H 04/29/21 06:15 Creatinine 0.96 mg/dL (0.55-1.02) 04/29/21 06:15 Est GFR (MDRD) Af Amer > 60 (>60) 04/29/21 06:15 Est GFR (MDRD) Non-Af > 60 (>60) 04/29/21 06:15 Glucose 145 mg/dL (65-99) H 04/29/21 06:15 POC Glucose (mg/dL) 210 mg/dL (65-99) H 04/28/21 16:32 Calcium 9.2 mg/dL (8.5-10.1) 04/29/21 06:15 Corrected Calcium 9.8 mg/dL (8.5-10.1) 04/27/21 05:23 Total Bilirubin 0.10 mg/dL (0.2-1.0) L 04/27/21 05:23 AST 13 Units/L (15-37) L 04/27/21 05:23 ALT 17 Units/L (12-78) 04/27/21 05:23 Alkaline Phosphatase 88 Units/L (46-116) 04/27/21 05:23 Creatine Kinase 180 Units/L (26-192) 04/24/21 21:18 CK-MB (CK-2) 1.1 ng/mL (0-4.0) 04/24/21 21:18 CK/CKMB % Calc 0.6 % (<4) 04/24/21 21:18 Troponin I High Sens 11.4 ng/L (4.0-60.0) 04/24/21 21:18 B-Natriuretic Peptide 41.6 pg/mL (0-79) 04/24/21 21:18 Total Protein 6.5 g/dL (6.4-8.2) 04/27/21 05:23 Albumin 3.0 g/dL (3.4-5.0) L 04/27/21 05:23 Globulin 3.5 g/dL (2.5-4.5) 04/27/21 05:23 Albumin/Globulin Ratio 0.9 Ratio (1.1-2.1) L 04/27/21 05:23 SARS-CoV-2 (PCR) Negative (NEGATIVE) 04/24/21 21:20 Influenza Type A (PCR) Negative (NEGATIVE) 04/24/21 21:20 Influenza Type B (PCR) Negative (NEGATIVE) 04/24/21 21:20 RSV (PCR) Negative (NEGATIVE) 04/24/21 21:20 Radiology Reviewed: Yes Plan (1) Klebsiella pneumonia: Status: Acute Qualifiers: Laterality: unspecified laterality Lung location: unspecified part of lung Qualified Code(s): J15.0 - Pneumonia due to Klebsiella pneumoniae (2) COPD with acute exacerbation: Status: Acute (3) Hypothyroidism: Status: Chronic Qualifiers: Hypothyroidism type: acquired Qualified Code(s): E03.9 - Hypothyroidism, unspecified (4) Hyperlipidemia: Status: Chronic Qualifiers: Hyperlipidemia type: mixed hyperlipidemia Qualified Code(s): E78.2 - Mixed hyperlipidemia (5) Depression: Status: Chronic Qualifiers: Depression Type: major depressive disorder Major depression recurrence: recurrent Active/Remission status: remission status unspecified Qualified Code(s): F33.9 - Major depressive disorder, recurrent, unspecified (6) Sleep apnea: Status: Chronic Qualifiers: Sleep apnea type: unspecified type Qualified Code(s): G47.30 - Sleep apnea, unspecified (7) Diabetes mellitus: Status: Chronic Qualifiers: Diabetes mellitus type: type 2 Diabetes mellitus complication status: with unspecified complications Diabetes mellitus alf insulin use: with alf use Qualified Code(s): E11.8 - Type 2 diabetes mellitus with unspecified complications; Z79.4 - rodent exterminator (current) use of insulin; Z79.4 - senior living (current) use of insulin; Z79.4 - rodent exterminator (current) use of insulin; Z79.4 - senior living (current) use of insulin (8) Hypertension: Status: Chronic Qualifiers: Hypertension type: essential hypertension Qualified Code(s): I10 - Essential (primary) hypertension (9) CHF (congestive heart failure): Status: Acute Qualifiers: Congestive heart failure type: unspecified congestive heart failure type Congestive heart failure chronicity: acute on chronic Qualified Code(s): I50.9 - Heart failure, unspecified (10) History of TIA (transient ischemic attack): Status: Chronic (11) GERD (gastroesophageal reflux disease): Status: Chronic Qualifiers: Esophagitis presence: esophagitis presence not specified Qualified Code(s): K21.9 - Gastro-esophageal reflux disease without esophagitis
[2021-04-29] MEDS: MIRAPEX TAB 0.25 MG PO SCH (20:48)
[2021-04-29] MEDS: ROCEPHIN 1 GRAM IV PREMIX 1 G/50 ML IV.SOLN. IV SCH (20:52)
[2021-04-29] MEDS: LANTUS SC SCH (21:05)
[2021-04-29] MEDS: MUCOMYST 20% 200 MG/ML NEB SCH (21:05)
[2021-04-29] MEDS: DUONEB 0.5 MG/3 MG (3 mL) NEB SCH (21:05)
[2021-04-29] MEDS: PULMICORT NEB TX 0.5 MG NEB SCH (21:05)
[2021-04-30] MEDS: DUONEB 0.5 MG/3 MG (3 mL) NEB SCH ×4 (00:33→09:48)
--- NOTE | 2021-04-30 05:36 | RAD ---
PROCEDURE: Chest X-ray 1 View .HISTORY: COPD and Klebsiella pneumonia.TECHNIQUE: AP portable done at 5:20 a.m..COMPARISON: 04/26/2021.TECHNICAL QUALITY: Satisfactory .FINDINGS:Unchanged heart size upper limits of normal with pacemaker on the left.Mediastinum and hilar regions show no masses or lymphadenopathy .Normal central vascularity .No pulmonary consolidation, masses, pleural fluid, or pneumothorax .No acute bony abnormality .IMPRESSION:Unchanged start size upper limits of normal with no other evidence of active disease.Electronically signed by: Ramos Ramos (Apr 30, 2021 05:35:01)
[2021-04-30] MEDS: SOLU-Medrol 40 MG VIAL IVP SCH (06:06)
[2021-04-30 07:12] LABS: BASOPHILS % (AUTO) 0.1 % (0.2-1.0); HEMATOCRIT 35.4 % (36.0-47.0); HEMOGLOBIN 11.8 g/dL (12.0-16.0); LYMPHOCYTES # (AUTO) 1.1 X10^3/uL (1.3-2.9); LYMPHOCYTES % (AUTO) 12.9 % (21.0-51.0); MEAN CORPUSCULAR HGB CONC 33.2 g/dL (33.0-35.0); MEAN CORPUSCULAR VOLUME 81.5 fL (80.0-100.0); MEAN PLATELET VOLUME 9.9 fL (7.4-11.0); MONOCYTES # (AUTO) 0.3 x10^3/uL (0.3-0.8); MONOCYTES % (AUTO) 3.9 % (0.0-13.0); NEUTROPHILS # (AUTO) 7.1 x10^3/uL (2.2-4.8); NEUTROPHILS % (AUTO) 83.1 % (42.0-75.0); RED BLOOD COUNT 4.35 X10^6/uL (3.5-5.4); RED CELL DISTRIBUTION WIDTH 16.3 % (11.6-16.5); WHITE BLOOD COUNT 8.5 X10^3/uL (3.6-10.0)
[2021-04-30 07:34] LABS: ALANINE AMINOTRANSFERASE 25 Units/L (12-78); ALBUMIN 2.9 g/dL (3.4-5.0); ALKALINE PHOSPHATASE 68 Units/L (46-116); ASPARTATE AMINO TRANSFERASE 14 Units/L (15-37); BLOOD UREA NITROGEN 30 mg/dL (7-18); CALCIUM 8.9 mg/dL (8.5-10.1); CARBON DIOXIDE 27.4 mmol/L (21-32); COR CA(FOR HYPOALB) 9.8 mg/dL (8.5-10.1); CREATININE 0.95 mg/dL (0.55-1.02); eGFR NON BLACK RACES > 60 (>60)
[2021-04-30 07:47] LABS: CHLORIDE 103 mmol/L (98-107); COR NA(FOR HYPERGLY) 142 mmol/L (136-145); SODIUM 141 mmol/L (136-145)
[2021-04-30] MEDS ORDERED: LEXAPRO ONE (07:48)
[2021-04-30 07:55] LABS: BAND NEUTROPHILS % 2 % (0-10)
[2021-04-30 07:56] LABS: PLATELET MORPHOLOGY COMMENT NORMAL (NORMAL)
[2021-04-30] MEDS: ZOCOR TAB 20 MG PO SCH (09:03)
[2021-04-30] MEDS: SYNTHROID 125 mcg TAB PO SCH (09:03)
[2021-04-30] MEDS: ASPIRIN 81 MG CHEWTAB PO SCH (09:03)
[2021-04-30] MEDS: GLUCOPHAGE XR 24-HR PO SCH (09:03)
[2021-04-30] MEDS: LEXAPRO PO SCH (09:04)
[2021-04-30] MEDS: ZITHROMAX TAB 250 MG PO SCH (09:04)
[2021-04-30] MEDS: LOTENSIN TAB 10 MG PO SCH (09:04)
[2021-04-30] MEDS: PriLOSEC PO SCH (09:05)
[2021-04-30] MEDS: MAG-OX TAB PO SCH (09:06)
[2021-04-30] MEDS: MICRO K EXTEN CAP 10 MEQ PO SCH (09:06)
[2021-04-30] MEDS: ZETIA TAB 10 MG PO SCH (09:06)
[2021-04-30] MEDS: LOVENOX INJ 40 MG SYR SC SCH (09:07)
[2021-04-30] MEDS: LIPASE PROTEASE AMYLASE PO SCH (09:07)
[2021-04-30] MEDS: [UNRECOGNIZED DRUG - OTHER] PO SCH (09:07)
[2021-04-30] MEDS: ULORIC PO SCH (09:13)
[2021-04-30 09:30] VITALS: BP 137/61
[2021-04-30] MEDS: PULMICORT NEB TX 0.5 MG NEB SCH (09:48)
--- NOTE | 2021-05-25 10:04 | PCM.DCPLAN ---
DISCHARGE SUMMARY Admission Date Date of Admission: 04/25/21 Discharge Date Discharge Date: 04/30/21 Admission Diagnoses (1) Klebsiella pneumonia: Status: Acute (2) COPD with acute exacerbation: Status: Acute (3) Hypothyroidism: Status: Chronic (4) Hyperlipidemia: Status: Chronic (5) Depression: Status: Chronic (6) Sleep apnea: Status: Chronic (7) Diabetes mellitus: Status: Chronic (8) Hypertension: Status: Chronic (9) CHF (congestive heart failure): Status: Acute (10) History of TIA (transient ischemic attack): Status: Chronic (11) GERD (gastroesophageal reflux disease): Status: Chronic Discharge Diagnoses Discharge Diagnosis: 1. Klebsiella pneumonia- resolving 2. COPD- resolved 3. DM 2. HTN 5. Depression 6. GERD 7. Discharge Medications Discharge Medications: Home Medication List Creon 1 cap PO BID 04/25/21 [History] Jardiance 25 mg PO DAILY 04/25/21 [History] Lantus Solostar U-100 Insulin 48 unit SUBCUT HS 04/25/21 [History] Lantus Solostar U-100 Insulin 48 unit SUBCUT QHS 04/25/21 [History] Spiriva Respimat 2 inh INHALATION DAILY 04/25/21 [History] benazepril 5 mg PO DAILY 04/25/21 [History] ezetimibe 10 mg PO DAILY 04/25/21 [History] febuxostat 40 mg PO DAILY 04/25/21 [History] levothyroxine 125 mcg PO DAILY 04/25/21 [History] metformin 1,000 mg PO BID 04/25/21 [History] pramipexole 0.25 mg PO QHS 04/25/21 [History] benzonatate 100 mg PO TID PRN #30 cap 04/30/21 [Rx] cefuroxime axetil 500 mg PO BID #14 tab 04/30/21 [Rx] Prescriptions: JASON Quintero cefuroxime axetil JASON RODRÍGUEZ Hospital Course Vital Signs: Temperature 97.3 F Pulse Rate [Left Brachial] 68 Pulse Rate 71 Respiratory Rate 18 Blood Pressure [Right Arm] 137/61 Blood Pressure 141/65 O2 Sat by Pulse Oximetry 95 Latest Lab Results: Laboratory Last Values WBC 8.5 X10^3/uL (3.6-10.0) 04/30/21 06:33 RBC 4.35 X10^6/uL (3.5-5.4) 04/30/21 06:33 Hgb 11.8 g/dL (12.0-16.0) L 04/30/21 06:33 Hct 35.4 % (36.0-47.0) L 04/30/21 06:33 MCV 81.5 fL (80.0-100.0) 04/30/21 06:33 MCH 27.0 pg (27.0-34.0) 04/30/21 06:33 MCHC 33.2 g/dL (33.0-35.0) 04/30/21 06:33 RDW 16.3 % (11.6-16.5) 04/30/21 06:33 Plt Count 163 X10^3/uL (150.0-450.0) 04/30/21 06:33 Plt Count Comment Adequate (ADEQUATE) 04/30/21 06:33 MPV 9.9 fL (7.4-11.0) 04/30/21 06:33 Neut % (Auto) 83.1 % (42.0-75.0) H 04/30/21 06:33 Lymph % (Auto) 12.9 % (21.0-51.0) L 04/30/21 06:33 Love % (Auto) 3.9 % (0.0-13.0) 04/30/21 06:33 Eos % (Auto) 0.0 % (0.9-2.9) L 04/30/21 06:33 Baso % (Auto) 0.1 % (0.2-1.0) L 04/30/21 06:33 Neut # (Auto) 7.1 x10^3/uL (2.2-4.8) H 04/30/21 06:33 Lymph # (Auto) 1.1 X10^3/uL (1.3-2.9) L 04/30/21 06:33 Love # (Auto) 0.3 x10^3/uL (0.3-0.8) 04/30/21 06:33 Eos # (Auto) 0.0 x10^3/uL (0.0-0.2) 04/30/21 06:33 Baso # (Auto) 0.0 X10^3/uL (0.0-0.1) 04/30/21 06:33 Absolute Nucleated RBC 0.1 /100WBC 04/30/21 06:33 Total Counted 100 04/30/21 06:33 Neutrophils % (Manual) 84 % (39-76) H 04/30/21 06:33 Band Neutrophils % 2 % (0-10) 04/30/21 06:33 Lymphocytes % (Manual) 10 % (13-43) L 04/30/21 06:33 Monocytes % (Manual) 4 % (4-9) 04/30/21 06:33 Plt Morphology Comment Normal (NORMAL) 04/30/21 06:33 RBC Morphology Normal (NORMAL) 04/30/21 06:33 D-Dimer 0.50 ug/ml (0.0-0.57) 04/27/21 14:14 Sodium 141 mmol/L (136-145) 04/30/21 06:33 Corrected Sodium 142 mmol/L (136-145) 04/30/21 06:33 Potassium 3.9 mmol/L (3.5-5.1) 04/30/21 06:33 Chloride 103 mmol/L (98-107) 04/30/21 06:33 Carbon Dioxide 27.4 mmol/L (21-32) 04/30/21 06:33 BUN 30 mg/dL (7-18) H 04/30/21 06:33 Creatinine 0.95 mg/dL (0.55-1.02) 04/30/21 06:33 Est GFR (MDRD) Af Amer > 60 (>60) 04/30/21 06:33 Est GFR (MDRD) Non-Af > 60 (>60) 04/30/21 06:33 Glucose 144 mg/dL (65-99) H 04/30/21 06:33 POC Glucose (mg/dL) 146 mg/dL (65-99) H 04/30/21 06:03 Calcium 8.9 mg/dL (8.5-10.1) 04/30/21 06:33 Corrected Calcium 9.8 mg/dL (8.5-10.1) 04/30/21 06:33 Total Bilirubin 0.20 mg/dL (0.2-1.0) 04/30/21 06:33 AST 14 Units/L (15-37) L 04/30/21 06:33 ALT 25 Units/L (12-78) 04/30/21 06:33 Alkaline Phosphatase 68 Units/L (46-116) 04/30/21 06:33 Creatine Kinase 180 Units/L (26-192) 04/24/21 21:18 CK-MB (CK-2) 1.1 ng/mL (0-4.0) 04/24/21 21:18 CK/CKMB % Calc 0.6 % (<4) 04/24/21 21:18 Troponin I High Sens 11.4 ng/L (4.0-60.0) 04/24/21 21:18 B-Natriuretic Peptide 41.6 pg/mL (0-79) 04/24/21 21:18 Total Protein 6.0 g/dL (6.4-8.2) L 04/30/21 06:33 Albumin 2.9 g/dL (3.4-5.0) L 04/30/21 06:33 Globulin 3.1 g/dL (2.5-4.5) 04/30/21 06:33 Albumin/Globulin Ratio 0.9 Ratio (1.1-2.1) L 04/30/21 06:33 SARS-CoV-2 (PCR) Negative (NEGATIVE) 04/24/21 21:20 Influenza Type A (PCR) Negative (NEGATIVE) 04/24/21 21:20 Influenza Type B (PCR) Negative (NEGATIVE) 04/24/21 21:20 RSV (PCR) Negative (NEGATIVE) 04/24/21 21:20 Hospital Course: The patient was admitted for pneumonia and started on IV Rocephin and Zithromax. Solumedrol was given also for her COPD Exacerbtion. Cultures were taken which grew out Klebsiella pneumoniae and yeast. She continued to improve over the next days and was discharged on the 5th hospital day. Her lungs had cleared up and only had a few scattered rhonchi at this time. She was discharged home in stable condition on Ceftin. Instructions Instructions: Type 2 Diabetes Mellitus, Diagnosis, Adult Shortness of Breath, Adult, [id number] Chronic Obstructive Pulmonary Disease Exacerbation, [id number]
== END 2021-04-30 12:00 | disposition home health service (06) | DRG 178 ==
LOC: ER 19:00 → MED/SURG 19:00
PROVIDERS: ADMIT Internal Medicine; ATTEND Internal Medicine
DX: I50.9 Heart failure, unspecified; I11.0 Hypertensive heart disease with heart failure; K21.9 Gastro-esophageal reflux disease without esophagitis; E78.2 Mixed hyperlipidemia; E11.65 Type 2 diabetes mellitus with hyperglycemia; J44.1 Chronic obstructive pulmonary disease with (acute) exacerbation; E03.8 Other specified hypothyroidism; R06.02 Shortness of breath; Z86.73 Personal history of transient ischemic attack (TIA), and cerebral infarction without residual deficits; Z99.81 Dependence on supplemental oxygen; Z20.822 Contact with and (suspected) exposure to COVID-19; Z79.4 Long term (current) use of insulin; F33.9 Major depressive disorder, recurrent, unspecified; J15.0 Pneumonia due to Klebsiella pneumoniae; G47.30 Sleep apnea, unspecified

== ENCOUNTER 2024-02-24 10:36 | Observation (INO) ==
[2024-02-24 10:46] VITALS: BMI 33.3
--- NOTE | 2024-02-24 11:13 | EKG ---
Test Reason : chest pain Blood Pressure : */* mmHG Vent. Rate : 70 BPM Atrial Rate : 70 BPM P-R Int : 180 ms QRS Dur : 144 ms QT Int : 460 ms P-R-T Axes : * 102 86 degrees QTc Int : 496 ms Atrial-paced rhythm Rightward axis Nonspecific intraventricular block Cannot rule out Anteroseptal infarct , age undetermined Abnormal ECG No previous ECGs available Confirmed by Bryan Petty MD ([id number]) on 02/24/2024 12:29:52 PM Referred By: Confirmed By: Bryan Petty MD
[2024-02-24 11:38] LABS: BILIRUBIN,URINE NEGATIVE (NEGATIVE); BLOOD/HEMOGLOBIN,URINE NEGATIVE (NEGATIVE); GLUCOSE, URINE 3+ (NEGATIVE); KETONES,URINE NEGATIVE (NEGATIVE); LEUKOCYTE ESTERASE ,URINE 1+ (NEGATIVE); NITRITES,URINE NEGATIVE (NEGATIVE); PROTEIN,URINE NEGATIVE (NEGATIVE); UROBILINOGEN,URINE NORMAL (NORMAL)
[2024-02-24 11:54] LABS: APPEARANCE,URINE CLEAR (CLEAR); BACTERIA,URINE NEGATIVE /HPF (NEGATIVE); COLOR,URINE STRAW (YELLOW); RBC,URINE NONE SEEN /HPF (0-3); SQUAMOUS EPITHELIAL CELL,UR RARE /HPF (NEGATIVE)
--- NOTE | 2024-02-24 13:18 | DR.CP ---
HPI Time Seen Time Seen by Provider: 02/24/24 13:17 PCP Primary Care Physician: Bryan Stewart Complaint Chief Complaint:: Patient states she started having chest pain x2 days ago. Patient states it is a throbbing, tightness. Patient states pain is sudden onset gets worse then eases off. Self Treatment fo Chief Complaint: Patient states she did take an aspirin yesterday. COVID-19 Coronavirus risk:travel/contact w/high risk person: No Has patient experienced Coronavirus symptoms: No Source History Provided: Patient Mode of Arrival Mode of Arrival: Ambulatory Timing Onset of Chief Complaint: 02/22/24 PMH PMH Past Medical History: Yes Past Medical History: Arthritis, Asthma, CHF, COPD, Diabetes, GERD, Gout, Hypertension and Renal Disease Past Surgical History: Yes Surgical History: Cholecystectomy, Hysterectomy, Joint Replacement and Ortho Surgery Family History History of Family Medical Conditions: Yes Family Medical History: Diabetes Mellitus, CT, Coronary Artery Disease and Hy pertension Social History Alcohol Use: None Do you use any recreational Drugs:: No Lives Where: Home Travel Risk Coronavirus risk:travel/contact w/high risk person: No Has patient experienced Coronavirus symptoms: No Infectious screening In the last 2 months have you had wt loss of >10#?: NO Have you had fever, night sweats or hemotysis?: No Have you traveled outside the country in the last 6 months?: No Isolation: Standard PE Vitals Vitals: Vital Signs Temperature 97.7 F Pulse Rate 69 Pulse Rate 69 Pulse Rate 69 Pulse Rate 98 Pulse Rate 69 Pulse Rate 69 Pulse Rate 69 Pulse Rate 69 Pulse Rate 69 Pulse Rate 69 Pulse Rate 69 Pulse Rate 69 Pulse Rate 69 Pulse Rate 70 Pulse Rate 69 Pulse Rate 69 Pulse Rate 69 Pulse Rate 69 Pulse Rate 71 Pulse Rate 70 Respiratory Rate 17 Respiratory Rate 27 Respiratory Rate 20 Respiratory Rate 15 Respiratory Rate 19 Respiratory Rate 12 Respiratory Rate 21 Respiratory Rate 23 Respiratory Rate 23 Respiratory Rate 18 Respiratory Rate 12 Respiratory Rate 13 Respiratory Rate 13 Respiratory Rate 26 Respiratory Rate 17 Respiratory Rate 13 Respiratory Rate 11 Respiratory Rate 10 Respiratory Rate 20 Blood Pressure 140/81 Blood Pressure 140/63 Blood Pressure 120/59 Blood Pressure 120/59 Blood Pressure 126/67 Blood Pressure 157/72 Blood Pressure 157/72 Blood Pressure 135/65 Blood Pressure 149/71 Blood Pressure 127/60 O2 Sat by Pulse Oximetry 99 O2 Sat by Pulse Oximetry 98 O2 Sat by Pulse Oximetry 99 O2 Sat by Pulse Oximetry 96 O2 Sat by Pulse Oximetry 95 O2 Sat by Pulse Oximetry 97 O2 Sat by Pulse Oximetry 98 O2 Sat by Pulse Oximetry 98 O2 Sat by Pulse Oximetry 97 O2 Sat by Pulse Oximetry 97 O2 Sat by Pulse Oximetry 99 O2 Sat by Pulse Oximetry 100 O2 Sat by Pulse Oximetry 100 O2 Sat by Pulse Oximetry 96 O2 Sat by Pulse Oximetry 98 O2 Sat by Pulse Oximetry 97 O2 Sat by Pulse Oximetry 100 O2 Sat by Pulse Oximetry 99 ROR Labs Reviewed 02/24/24 13:37 02/24/24 13:37 Laboratory: WBC 6.2 X10^3/uL (3.6-10.0) 02/24/24 13:37 RBC 4.76 X10^6/uL (3.5-5.4) 02/24/24 13:37 Hgb 13.8 g/dL (12.0-16.0) 02/24/24 13:37 Hct 40.5 % (36.0-47.0) 02/24/24 13:37 MCV 85.0 fL (80.0-100.0) 02/24/24 13:37 MCH 28.9 pg (27.0-34.0) 02/24/24 13:37 MCHC 34.0 g/dL (33.0-35.0) 02/24/24 13:37 RDW 15.3 % (11.6-16.5) 02/24/24 13:37 Plt Count 114 X10^3/uL (150.0-450.0) L 02/24/24 13:37 MPV 9.0 fL (7.4-11.0) 02/24/24 13:37 Neut % (Auto) 44.9 % (42.0-75.0) 02/24/24 13:37 Lymph % (Auto) 45.6 % (21.0-51.0) 02/24/24 13:37 [place] % (Auto) 7.1 % (0.0-13.0) 02/24/24 13:37 Eos % (Auto) 1.7 % (0.9-2.9) 02/24/24 13:37 Baso % (Auto) 0.7 % (0.2-1.0) 02/24/24 13:37 Neut # (Auto) 2.8 x10^3/uL (2.2-4.8) 02/24/24 13:37 Lymph # (Auto) 2.8 X10^3/uL (1.3-2.9) 02/24/24 13:37 [place] # (Auto) 0.4 x10^3/uL (0.3-0.8) 02/24/24 13:37 Eos # (Auto) 0.1 x10^3/uL (0.0-0.2) 02/24/24 13:37 Baso # (Auto) 0.0 X10^3/uL (0.0-0.1) 02/24/24 13:37 Absolute Nucleated RBC 0.1 /100WBC 02/24/24 13:37 PT 13.8 SECONDS (11.8-14.3) 02/24/24 13:37 INR Target Range - 02/24/24 13:37 INR 1.08 (0.8-1.3) 02/24/24 13:37 APTT 30.9 SECONDS (22.9-36.5) 02/24/24 13:37 PTT Comment - 02/24/24 13:37 Sodium 143 mmol/L (136-145) 02/24/24 13:37 Corrected Sodium TNP 02/24/24 13:37 Potassium 4.0 mmol/L (3.5-5.1) 02/24/24 13:37 Chloride 105 mmol/L (98-107) 02/24/24 13:37 Carbon Dioxide 34.6 mmol/L (21-32) H 02/24/24 13:37 BUN 23 mg/dL (7-18) H 02/24/24 13:37 Creatinine 1.30 mg/dL (0.55-1.02) H 02/24/24 13:37 Est GFR (MDRD) Af Amer 51 (>60) L 02/24/24 13:37 Est GFR (MDRD) Non-Af 43 (>60) L 02/24/24 13:37 Glucose 80 mg/dL (65-99) 02/24/24 13:37 Calcium 9.2 mg/dL (8.5-10.1) 02/24/24 13:37 Corrected Calcium TNP 02/24/24 13:37 Total Bilirubin 0.30 mg/dL (0.2-1.0) 02/24/24 13:37 AST 26 Units/L (15-37) 02/24/24 13:37 ALT 22 Units/L (12-78) 02/24/24 13:37 Alkaline Phosphatase 151 Units/L (46-116) H 02/24/24 13:37 Creatine Kinase 62 Units/L (26-192) 02/24/24 13:37 Troponin I High Sens 9.5 ng/L (4.0-60.0) 02/24/24 13:37 B-Natriuretic Peptide 80.1 pg/mL (0-79) H 02/24/24 13:37 Total Protein 7.1 g/dL (6.4-8.2) 02/24/24 13:37 Albumin 3.7 g/dL (3.4-5.0) 02/24/24 13:37 Globulin 3.4 g/dL (2.5-4.5) 02/24/24 13:37 Albumin/Globulin Ratio 1.1 Ratio (1.1-2.1) 02/24/24 13:37 Specimen Type Clean catch urine 02/24/24 11:20 Urine Color Straw (YELLOW) 02/24/24 11:20 Urine Appearance Clear (CLEAR) 02/24/24 11:20 Urine pH 6.0 (5.0 - 8.0) 02/24/24 11:20 Ur Specific [place] 1.015 (1.000-1.030) 02/24/24 11:20 Urine Protein Negative (NEGATIVE) 02/24/24 11:20 Urine Glucose (UA) 3+ (NEGATIVE) 02/24/24 11:20 Urine Ketones Negative (NEGATIVE) 02/24/24 11:20 Urine Blood Negative (NEGATIVE) 02/24/24 11:20 Urine Nitrite Negative (NEGATIVE) 02/24/24 11:20 Urine Bilirubin Negative (NEGATIVE) 02/24/24 11:20 Urine Urobilinogen Normal (NORMAL) 02/24/24 11:20 Ur Leukocyte Esterase 1+ (NEGATIVE) 02/24/24 11:20 Urine RBC None seen /HPF (0-3) 02/24/24 11:20 Urine WBC 0-2 /HPF (0-5) 02/24/24 11:20 Ur Squamous Epith Cells Rare /HPF (NEGATIVE) 02/24/24 11:20 Urine Bacteria Negative /HPF (NEGATIVE) 02/24/24 11:20 Ur Culture Indicated? No/not indicated 02/24/24 11:20 SARS-CoV-2 (PCR) Negative (NEGATIVE) 02/24/24 15:39 Influenza Type A (PCR) Negative (NEGATIVE) 02/24/24 15:39 Influenza Type B (PCR) Negative (NEGATIVE) 02/24/24 15:39 RSV (PCR) Negative (NEGATIVE) 02/24/24 15:39 Opioid Opioid Risk Tool Age (Dae box if 16-45): No History of Preadolescent Sexual Abuse: No Total: 0 Total Score Risk Category: Low Risk Copyright: Noah WAYNE predicting aberrant behaviors Discharge Plan Diagnosis Discharge Problem: Chest pain, rule out acute myocardial infarction, Generalized weakness Discharge Plan Patient Disposition: 09 ADMITTED INPATIENT Condition: Stable Orders to Discharge Patient Discharge Orders: Transfer (Routine); Ordered 02/24/24 Ordered By: PEDRO BACH
[2024-02-24 13:41] LABS: BASOPHILS % (AUTO) 0.7 % (0.2-1.0); EOSINOPHILS # (AUTO) 0.1 x10^3/uL (0.0-0.2); EOSINOPHILS % (AUTO) 1.7 % (0.9-2.9); HEMATOCRIT 40.5 % (36.0-47.0); HEMOGLOBIN 13.8 g/dL (12.0-16.0); LYMPHOCYTES # (AUTO) 2.8 X10^3/uL (1.3-2.9); LYMPHOCYTES % (AUTO) 45.6 % (21.0-51.0); MEAN CORPUSCULAR HEMOGLOBIN 28.9 pg (27.0-34.0); MONOCYTES # (AUTO) 0.4 x10^3/uL (0.3-0.8); MONOCYTES % (AUTO) 7.1 % (0.0-13.0); NEUTROPHILS # (AUTO) 2.8 x10^3/uL (2.2-4.8); NEUTROPHILS % (AUTO) 44.9 % (42.0-75.0); PLATELET COUNT 114 X10^3/uL (150.0-450.0); RED BLOOD COUNT 4.76 X10^6/uL (3.5-5.4); RED CELL DISTRIBUTION WIDTH 15.3 % (11.6-16.5); WHITE BLOOD COUNT 6.2 X10^3/uL (3.6-10.0)
[2024-02-24 13:52] LABS: INR 1.08 (0.8-1.3)
[2024-02-24 13:58] LABS: ALANINE AMINOTRANSFERASE 22 Units/L (12-78); ALBUMIN 3.7 g/dL (3.4-5.0); ALKALINE PHOSPHATASE 151 Units/L (46-116); ASPARTATE AMINO TRANSFERASE 26 Units/L (15-37); BLOOD UREA NITROGEN 23 mg/dL (7-18); CALCIUM 9.2 mg/dL (8.5-10.1); CARBON DIOXIDE 34.6 mmol/L (21-32); CHLORIDE 105 mmol/L (98-107); CREATINE KINASE 62 Units/L (26-192); GLUCOSE 80 mg/dL (65-99); SODIUM 143 mmol/L (136-145); TOTAL PROTEIN 7.1 g/dL (6.4-8.2); eGFR NON BLACK RACES 43 (>60)
--- NOTE | 2024-02-24 15:11 | RAD ---
EXAM: CHEST, 1 VIEW HISTORY: CHEST PAIN; COMPARISON: Prior study or studies were utilized for comparison during interpretation with the most relevant miryam ed 04/26/2021 TECHNIQUE: CHEST, 1 VIEW FINDINGS: Chest: Lines and tubes: Left-sided pacemaker generator with lead or leads in satisfactory position. Mediastinum: Cardiac and mediastinal shadow is within normal limits for size and contour. Pulmonary vessels: No pulmonary vascular congestion. Lung garcia: No suspicious airspace opacity. Pleura: No effusion. No pneumothorax. Bones and soft tissues: No acute osseous or soft tissue abnormality. IMPRESSION: 1. No acute cardiopulmonary abnormality THIS IS AN ELECTRONICALLY VERIFIED FINAL REPORT 02/24/2024 3:08 PM - Electronically signed by Jose Eduardo Meade MD
[2024-02-24] MEDS: NS 1,000 ML IV 1,000 ML IV SCH (15:40)
[2024-02-25 05:53] LABS: BASOPHILS # (AUTO) 0.1 X10^3/uL (0.0-0.1); EOSINOPHILS # (AUTO) 0.1 x10^3/uL (0.0-0.2); EOSINOPHILS % (AUTO) 1.8 % (0.9-2.9); HEMATOCRIT 36.3 % (36.0-47.0); HEMOGLOBIN 12.3 g/dL (12.0-16.0); LYMPHOCYTES # (AUTO) 2.5 X10^3/uL (1.3-2.9); LYMPHOCYTES % (AUTO) 44.9 % (21.0-51.0); MEAN CORPUSCULAR HEMOGLOBIN 28.9 pg (27.0-34.0); MEAN CORPUSCULAR HGB CONC 33.8 g/dL (33.0-35.0); MEAN CORPUSCULAR VOLUME 85.4 fL (80.0-100.0); MEAN PLATELET VOLUME 9.2 fL (7.4-11.0); MONOCYTES # (AUTO) 0.5 x10^3/uL (0.3-0.8); MONOCYTES % (AUTO) 8.7 % (0.0-13.0); NEUTROPHILS # (AUTO) 2.4 x10^3/uL (2.2-4.8); NEUTROPHILS % (AUTO) 43.6 % (42.0-75.0); PLATELET COUNT 110 X10^3/uL (150.0-450.0); RED BLOOD COUNT 4.26 X10^6/uL (3.5-5.4); RED CELL DISTRIBUTION WIDTH 15.3 % (11.6-16.5); WHITE BLOOD COUNT 5.6 X10^3/uL (3.6-10.0)
[2024-02-25 06:31] LABS: ALANINE AMINOTRANSFERASE 21 Units/L (12-78); ALBUMIN 3.1 g/dL (3.4-5.0); ALKALINE PHOSPHATASE 124 Units/L (46-116); ASPARTATE AMINO TRANSFERASE 21 Units/L (15-37); BLOOD UREA NITROGEN 22 mg/dL (7-18); CALCIUM 9.1 mg/dL (8.5-10.1); CARBON DIOXIDE 32.8 mmol/L (21-32); CHLORIDE 107 mmol/L (98-107); CHOL/HDL RATIO 3.3 (0.0-5.0); CHOLESTEROL 113 mg/dL (0-200); COR CA(FOR HYPOALB) 9.8 mg/dL (8.5-10.1); CREATININE 1.17 mg/dL (0.55-1.02); GLUCOSE 83 mg/dL (65-99); HDL CHOLESTEROL 34 mg/dL (40-60); MAGNESIUM 1.8 mg/dL (2.0-2.9); POTASSIUM 3.8 mmol/L (3.5-5.1); SODIUM 146 mmol/L (136-145); TOTAL PROTEIN 6.1 g/dL (6.4-8.2); TRIGLYCERIDES 146 mg/dL (0-150); eGFR NON BLACK RACES 48 (>60)
[2024-02-25] MEDS: PROVENTIL NEB TX 0.083% 2.5MG/ 3ML NEB PRN (09:04)
--- NOTE | 2024-02-25 10:57 | DR.H&P ---
H&P History & Physical for Day of: H&P Date: 02/25/24 Chief Complaint Chief Complaint: "I had some chest pain yesterday. Well, for about three days. It wasn't bad but it was bad enough for me." History of Present Illness History of Present Illness: Deloris Riojas is a 73-year-old white female with a history of multiple hospital admissions. She presents with chest pain and generalized weakness. The chest pain started approximately 3 days ago, described as tightness extending down the right arm and into the right jaw. Associated symptoms include weakness. The patient reports having a pacemaker but denies previous heart trouble aside from that and denies recent stress tests. She has a history of chronic obstructive pulmonary disease (COPD) but denies recent chest colds and currently does not cough up anything. She reports a slight increase in activity level with a recent move to an apartment that has stairs, noting in creased chest tightness when exerting herself. No other acute exacerbations for asthma noted. Chronic obstructive pulmonary disease (COPD), chronic kidney disease stage 3B, hypomagnesemia, history of pacemaker placement, diabetes mellitus. Recent labs show creatinine at 1.17 (improved from 1.30), estimated GFR 48, low magnesium at 1.8, low platelets at 110,000. Troponins show normal results earlier in the day yet range from 8.2 to 10.6 since admission. BNAT is at 80.1 with baseline in the 20s to upper 40s. Lipid profile shows triglycerides at 146, total cholesterol 113, LDL 50, HDL 34. Past Medical History Past Medical History: Arthritis, Asthma, CHF, COPD, Diabetes, GERD, Gout, Hypertension and Renal Disease Past Surgical History Surgical History: Abdominal Surgery, Cholecystectomy, FURNITURE REPAIRER Surgery, Hysterectomy and Ortho Surgery Family History Family Medical History: Diabetes Mellitus, Cancer, [place] and Heart Failure Social History Does patient currently use any type of tobacco product: No Type of Tobacco Use: None Does any household member use tobacco: No Alcohol Use: None Drug Use: None Medications Home Medications: Home Medications Medication Instructions Recorded Confirmed Type potassium chloride 10 mEq 10 meq PO BID 08/08/12 02/24/24 History tablet,extended release (Klor-Con) simvastatin 20 mg tablet 20 mg PO DAILY 08/08/12 02/24/24 History hydrocodone 10 mg-acetaminophen 1 tab PO Q6HR PRN 10/07/15 02/24/24 History 325 mg tablet omeprazole 20 mg capsule,delayed 20 mg PO DAILY 10/07/15 02/24/24 History release empagliflozin 25 mg tablet 25 mg PO DAILY 04/25/21 02/24/24 History (Jardiance) pramipexole 0.25 mg tablet 0.25 mg PO QHS 04/25/21 02/24/24 History allopurinol 100 mg tablet 100 mg PO QDAY 02/24/24 02/24/24 History diazepam 10 mg tablet 10 mg PO QDAY PRN 02/24/24 02/24/24 History furosemide 40 mg tablet 40 mg PO QDAY 02/24/24 02/24/24 History levothyroxine 150 mcg tablet 150 mcg PO QDAY 02/24/24 02/24/24 History linaclotide 72 mcg capsule 72 mcg PO QAM 02/24/24 02/24/24 History (Linzess) losartan 50 mg tablet 50 mg PO QDAY 02/24/24 02/24/24 History semaglutide 1 mg/dose (4 mg/3 mL) 4 mg subcut WEEKLY 02/24/24 02/24/24 History subcutaneous pen injector (Ozempic) Allergies Allergies Allergy/AdvReac Type Severity Reaction Status Date / Time levofloxacin [From [facility]] Allergy Verified 01/26/17 21:49 Labs 02/25/24 05:23 02/25/24 05:23 Labs: Laboratory WBC 5.6 X10^3/uL (3.6-10.0) 02/25/24 05:23 RBC 4.26 X10^6/uL (3.5-5.4) 02/25/24 05:23 Hgb 12.3 g/dL (12.0-16.0) 02/25/24 05:23 Hct 36.3 % (36.0-47.0) 02/25/24 05:23 MCV 85.4 fL (80.0-100.0) 02/25/24 05:23 MCH 28.9 pg (27.0-34.0) 02/25/24 05:23 MCHC 33.8 g/dL (33.0-35.0) 02/25/24 05:23 RDW 15.3 % (11.6-16.5) 02/25/24 05:23 Plt Count 110 X10^3/uL (150.0-450.0) L 02/25/24 05:23 MPV 9.2 fL (7.4-11.0) 02/25/24 05:23 Neut % (Auto) 43.6 % (42.0-75.0) 02/25/24 05:23 Lymph % (Auto) 44.9 % (21.0-51.0) 02/25/24 05:23 [place] % (Auto) 8.7 % (0.0-13.0) 02/25/24 05:23 Eos % (Auto) 1.8 % (0.9-2.9) 02/25/24 05:23 Baso % (Auto) 1.0 % (0.2-1.0) 02/25/24 05:23 Neut # (Auto) 2.4 x10^3/uL (2.2-4.8) 02/25/24 05:23 Lymph # (Auto) 2.5 X10^3/uL (1.3-2.9) 02/25/24 05:23 [place] # (Auto) 0.5 x10^3/uL (0.3-0.8) 02/25/24 05:23 Eos # (Auto) 0.1 x10^3/uL (0.0-0.2) 02/25/24 05:23 Baso # (Auto) 0.1 X10^3/uL (0.0-0.1) 02/25/24 05:23 Absolute Nucleated RBC 0.1 /100WBC 02/25/24 05:23 PT 13.8 SECONDS (11.8-14.3) 02/24/24 13:37 INR Target Range - 02/24/24 13:37 INR 1.08 (0.8-1.3) 02/24/24 13:37 APTT 30.9 SECONDS (22.9-36.5) 02/24/24 13:37 PTT Comment - 02/24/24 13:37 Sodium 146 mmol/L (136-145) H 02/25/24 05:23 Corrected Sodium TNP 02/25/24 05:23 Potassium 3.8 mmol/L (3.5-5.1) 02/25/24 05:23 Chloride 107 mmol/L (98-107) 02/25/24 05:23 Carbon Dioxide 32.8 mmol/L (21-32) H 02/25/24 05:23 BUN 22 mg/dL (7-18) H 02/25/24 05:23 Creatinine 1.17 mg/dL (0.55-1.02) H 02/25/24 05:23 Est GFR (MDRD) Af Amer 58 (>60) L 02/25/24 05:23 Est GFR (MDRD) Non-Af 48 (>60) L 02/25/24 05:23 Glucose 83 mg/dL (65-99) 02/25/24 05:23 Calcium 9.1 mg/dL (8.5-10.1) 02/25/24 05:23 Corrected Calcium 9.8 mg/dL (8.5-10.1) 02/25/24 05:23 Magnesium 1.8 mg/dL (2.0-2.9) L 02/25/24 05:23 Total Bilirubin 0.30 mg/dL (0.2-1.0) 02/25/24 05:23 AST 21 Units/L (15-37) 02/25/24 05:23 ALT 21 Units/L (12-78) 02/25/24 05:23 Alkaline Phosphatase 124 Units/L (46-116) H 02/25/24 05:23 Creatine Kinase 62 Units/L (26-192) 02/24/24 13:37 Troponin I High Sens 8.2 ng/L (4.0-60.0) 02/25/24 02:35 B-Natriuretic Peptide 80.1 pg/mL (0-79) H 02/24/24 13:37 Total Protein 6.1 g/dL (6.4-8.2) L 02/25/24 05:23 Albumin 3.1 g/dL (3.4-5.0) L 02/25/24 05:23 Globulin 3.0 g/dL (2.5-4.5) 02/25/24 05:23 Albumin/Globulin Ratio 1.0 Ratio (1.1-2.1) L 02/25/24 05:23 Triglycerides 146 mg/dL (0-150) 02/25/24 05:23 Cholesterol 113 mg/dL (0-200) 02/25/24 05:23 LDL Cholesterol, Calc 50 mg/dL (0-100) 02/25/24 05:23 HDL Cholesterol 34 mg/dL (40-60) L 02/25/24 05:23 Cholesterol/HDL Ratio 3.3 (0.0-5.0) 02/25/24 05:23 Specimen Type Clean catch urine 02/24/24 11:20 Urine Color Straw (YELLOW) 02/24/24 11:20 Urine Appearance Clear (CLEAR) 02/24/24 11:20 Urine pH 6.0 (5.0 - 8.0) 02/24/24 11:20 Ur Specific [place] 1.015 (1.000-1.030) 02/24/24 11:20 Urine Protein Negative (NEGATIVE) 02/24/24 11:20 Urine Glucose (UA) 3+ (NEGATIVE) 02/24/24 11:20 Urine Ketones Negative (NEGATIVE) 02/24/24 11:20 Urine Blood Negative (NEGATIVE) 02/24/24 11:20 Urine Nitrite Negative (NEGATIVE) 02/24/24 11:20 Urine Bilirubin Negative (NEGATIVE) 02/24/24 11:20 Urine Urobilinogen Normal (NORMAL) 02/24/24 11:20 Ur Leukocyte Esterase 1+ (NEGATIVE) 02/24/24 11:20 Urine RBC None seen /HPF (0-3) 02/24/24 11:20 Urine WBC 0-2 /HPF (0-5) 02/24/24 11:20 Ur Squamous Epith Cells Rare /HPF (NEGATIVE) 02/24/24 11:20 Urine Bacteria Negative /HPF (NEGATIVE) 02/24/24 11:20 Ur Culture Indicated? No/not indicated 02/24/24 11:20 SARS-CoV-2 (PCR) Negative (NEGATIVE) 02/24/24 15:39 Influenza Type A (PCR) Negative (NEGATIVE) 02/24/24 15:39 Influenza Type B (PCR) Negative (NEGATIVE) 02/24/24 15:39 RSV (PCR) Negative (NEGATIVE) 02/24/24 15:39 Review of Systems Constitutional: Weakness and Other (Pulmonary - reports tightness in chest, n otable pain radiating to right arm and jaw. Denies shortness of breath, cough, or respiratory distress at present. Cardiovascular - history of PACEMAKER placement, denies previous difficulties. No signs of edema or pallor.) Genitourinary: No Symptoms Reported Musculoskeletal: No Symptoms Reported Skin: No Symptoms Reported Neurological: No Symptoms Reported Physical Exam Vital Signs: Vital Signs Temperature 97.5 F Temperature 97.7 F Pulse Rate [Left Radial] 71 Pulse Rate [Left Radial] 72 Pulse Rate 71 Respiratory Rate 18 Respiratory Rate 16 Blood Pressure [Left Arm] 140/65 Blood Pressure [Left Arm] 142/63 O2 Sat by Pulse Oximetry 99 O2 Sat by Pulse Oximetry 99 O2 Sat by Pulse Oximetry 100 Oriented: Normal, Time, Person and Place Eyes: Normal Ear: Normal Nose: Normal Throat: Normal Respiratory: Clear Throughout Cardiovascular: Normal Auscultation: Bowel Sounds: Normal Palpation: Normal Tenderness: Normal Skin: Normal Musculoskeletal: Normal Psychiatric: Normal Mood Description: Calm Affect: Normal Speech Pattern: Clear and Appropriate Assessment/Plan (1) Chest pain, rule out acute myocardial infarction: Status: Acute Plan: Deloris is experiencing chest pain likely related to underlying heart disease, compounded by her COPD and diabetes. Differential diagnoses include unstable angina, exacerbation of COPD, or cardiac ischemia. The plan includes consulting Dr. Petty for a stress test and possibly echo to evaluate cardiac function due to her diabetes and symptoms indicating exertion-induced chest pain. Monitoring electrolytes and renal function will continue, especially given her low magnesium levels and chronic kidney disease. Follow-up will be scheduled within the next few days to assess progress and adjust management as needed. (2) Generalized weakness: Status: Acute (3) Hyperlipidemia: Qualifiers: Hyperlipidemia type: mixed hyperlipidemia Qualified Code(s): E78.2 - Mixed hyperlipidemia Status: Chronic (4) Depression: Qualifiers: Depression Type: major depressive disorder Major depression recurrence: recurrent Active/Remission status: remission status unspecified Qualified Code(s): F33.9 - Major depressive disorder, recurrent, unspecified Status: Chronic (5) Dyspnea: Qualifiers: Dyspnea type: shortness of breath Qualified Code(s): R06.02 - Shortness of breath; R06.00 - Dyspnea, unspecified; R06.01 - Orthopnea Status: Acute (6) Hypertension: Qualifiers: Hypertension type: essential hypertension Qualified Code(s): I10 - Essential (primary) hypertension Status: Chronic (7) DM2 (diabetes mellitus, type 2): Status: Acute (8) COPD (chronic obstructive pulmonary disease): Qualifiers: COPD type: COPD with acute lower respiratory infection Qualified Code(s): J44.0 - Chronic obstructive pulmonary disease with acute lower respiratory infection Status: Chronic (9) History of congestive heart failure: Status: Acute Review H&P Reviewed: Yes Patient was examined?: Yes
--- NOTE | 2024-02-25 13:03 | DR.CONSULT ---
CONSULT Consultation for Day of: Date: 02/25/24 Chief Complaint Chief Complaint: CP Allergies Allergies Allergy/AdvReac Type Severity Reaction Status Date / Time levofloxacin [From Levaquin] Allergy Verified 01/26/17 21:49 History of Present Illness History of Present Illness: 73 yo female- with afib/ablation/pacer/watchman- states cath 2-4 years ago in [place]- mild blockages- on bp pill/on statin- no smoke- admitted for recurrent episodes of cp- last 30 min/come and go- none since yesterday- ekg: atrial paced/prwp- takes lasix for edema- trops negative x 4, cxr: nad,ldl 50 Past Medical History Past Medical History: Arthritis, Asthma, CHF, COPD, Diabetes, GERD, Gout, Hypertension and Renal Disease Past Surgical History Surgical History: Abdominal Surgery, Cholecystectomy, [employer] Surgery, Hysterectomy and Ortho Surgery Family History Family Medical History: Diabetes Mellitus, Cancer, DC and Heart Failure Social History Does patient currently use any type of tobacco product: No Type of Tobacco Use: None Does any household member use tobacco: No Alcohol Use: None Drug Use: None Medications Home Medications: levofloxacin [From Levaquin] Allergy (Verified 01/26/17 21:49) CONTINUE taking the following medications allopurinol 100 mg tablet 100 mg PO QDAY 02/24/24 [History] diazepam 10 mg tablet 10 mg PO QDAY PRN 02/24/24 [History] furosemide 40 mg tablet 40 mg PO QDAY 02/24/24 [History] levothyroxine 150 mcg tablet 150 mcg PO QDAY 02/24/24 [History] linaclotide 72 mcg capsule (Linzess) 72 mcg PO QAM 02/24/24 [History] losartan 50 mg tablet 50 mg PO QDAY 02/24/24 [History] semaglutide 1 mg/dose (4 mg/3 mL) subcutaneous pen injector (Ozempic) 4 mg subcut WEEKLY 02/24/24 [History] Physical Exam Vital Signs: Vital Signs Temperature 97.5 F Pulse Rate [Left Radial] 71 Pulse Rate 71 Respiratory Rate 18 Blood Pressure [Left Arm] 140/65 O2 Sat by Pulse Oximetry 99 O2 Sat by Pulse Oximetry 99 alert ox3 nad clear lungs no bruits neck pacer ; well healed rrr minimal edema ekg: a paced prwpivcd rad cxr: nad labs: hct 36 cr 1.1 bun 22 Plan (1) Chest pain, rule out acute myocardial infarction: Status: Acute Narrative Support Text: no mi per trops Plan: add asa/bb cont arb/statin/lasix- will get echo- lexiscan as outpt in near future as long as normal LV- allow her to walk around [place]- if stable w/o cp- ok to d/c - lexiscan tent set for saturday (2) Hyperlipidemia: Status: Chronic Qualifiers: Hyperlipidemia type: mixed hyperlipidemia Qualified Code(s): E78.2 - Mixed hyperlipidemia (3) Dyspnea: Status: Acute Qualifiers: Dyspnea type: shortness of breath Qualified Code(s): R06.02 - Shortness of breath; R06.00 - Dyspnea, unspecified; R06.01 - Orthopnea (4) Hypertension: Status: Chronic Qualifiers: Hypertension type: essential hypertension Qualified Code(s): I10 - Essential (primary) hypertension (5) DM2 (diabetes mellitus, type 2): Status: Acute (6) COPD (chronic obstructive pulmonary disease): Status: Chronic Qualifiers: COPD type: COPD with acute lower respiratory infection Qualified Code(s): J44.0 - Chronic obstructive pulmonary disease with acute lower respiratory infection (7) History of congestive heart failure: Status: Acute
[2024-02-25] MEDS: TOPROL XL PO SCH (14:44)
[2024-02-25] MEDS: ASPIRIN 81 MG CHEWTAB PO SCH (14:44)
[2024-02-25 17:06] VITALS: BP 142/68; PULSE 78; RESP 20; TEMP 97.6; O2SAT 99
[2024-02-25] MEDS ORDERED: ZOCOR TAB 20 MG PO SCH (21:00)
[2024-02-26] MEDS ORDERED: LASIX PO SCH (09:00)
[2024-02-26] MEDS ORDERED: COZAAR PO SCH (09:00)
== END 2024-02-25 16:25 | disposition home or self-care (01) ==
LOC: MED/SURG 10:36 → ER 10:36 → MED/SURG 16:50
PROVIDERS: ADMIT Family Medicine; ATTEND Family Medicine
DX: Z86.79 Personal history of other diseases of the circulatory system; R06.01 Orthopnea; F33.8 Other recurrent depressive disorders; R53.1 Weakness; N18.32 Chronic kidney disease, stage 3b; Z95.0 Presence of cardiac pacemaker; R06.02 Shortness of breath; R94.31 Abnormal electrocardiogram [ECG] [EKG]; I12.9 Hypertensive chronic kidney disease with stage 1 through stage 4 chronic kidney disease, or unspecified chronic kidney disease; E11.65 Type 2 diabetes mellitus with hyperglycemia; R06.00 Dyspnea, unspecified; R07.89 Other chest pain; E78.2 Mixed hyperlipidemia; J44.0 Chronic obstructive pulmonary disease with (acute) lower respiratory infection; Z20.822 Contact with and (suspected) exposure to COVID-19